=== PATIENT | female | born 1930 | race African-American/Black ===

== ENCOUNTER 2018-07-19 14:46 | Inpatient (IN) ==
--- NOTE | 2018-07-19 18:18 | Internal Med History&Physical ---
<Sanam Bauman N - Last Filed: 07/19/18 22:16> Date of Encounter: 07/19/18 Time of Encounter: 18:18 Internal Medicine - H&P: HPI Chief complaint: Left hip fracture Admitted From: Hospital to Hospital Transfer Plans for Post Hospital Care: Home History of present illness: Ms. Corrales is a 87 year old female with a history of CHF, CAD, HLD, HTN, PAD, [place], and CKD who arrived at [facility] as a transfer from [facility]. She presented to that facility after an unwitnessed fall that presumably occurred from standing height. Patient is extremely hard of hearing; however, she is able to respond appropriately to written questions and appears to be fairly reliable as a historian. She states that she was "going around and around" even though she was trying to walk straight and suddenly fell. She states that she did not trip, and denies any headaches, visual changes, chest pain, shortness of breath, dizziness, or lightheadedness immediately prior to the event. She states that she was unable to get up without assistance, and called to her son, who lives with her, for help. Her family reports no apparent loss of consciousness. Initial imaging performed at outside facility was signif icant for intertrochanteric fracture of the left hip, prompting orthopedic consultation and subsequent transfer. Much of patients recent history is provided by her daughter, who is her POA, as well as multiple other family members present at the bedside. They report no recent changes in her health, and state that she has had no recent illnesses. She has had several falls at home, and the patient states that she is unsteady at times, requiring assistance with ambulation. Patient has had no recent increase in confusion, altered mental status, or other neurologic changes. ROS negative for fevers, chills, chest pain, abdominal pain, changes in appetite or bowel habits, or nausea/vomiting. Past Med Surg Social Fam HX - Past Medical History Medical history: arthritis, CHF, coronary artery disease, hyperlipidemia, hypertension, myocardial infarction, peripheral artery disease, renal disease Psychiatric history: no psych history - Past Surgical History Surgical History: carotid endarterectomy, coronary bypass (CABG), hysterectomy, orthopedic, other, other Additional surgical history: Triple bypass, Rt knee surgery, Back surgery, Lt n ephrectomy, Bilateral carpal tunnel release, T&A - Social History Smoking Status: Never smoker Smokeless Tobacco Status: No Alcohol use: unknown Drug use: none - Family History Father Living Status: Hx Family Cardiac Disorders: Yes (CAD) Mother Hx Family Cardiac Disorders: Yes (hypertension) Sister Hx Family Cardiac Disorders: Yes (CAD) Hx Family Endocrine Disorder: Yes (diabetes) Brother Living Status: Hx Family Cardiac Disorders: Yes (CAD) Internal Medicine - H&P: Meds Aspirin 325 mg PO DAILY 09/02/15 [History] Atorvastatin Calcium [Lipitor] 20 mg PO DAILY 09/02/15 [History] Clopidogrel [Plavix] 75 mg PO DAILY 09/02/15 [History] Ergocalciferol (VITAMIN D2) [Vitamin D2 (50,000 UNIT)] 50,000 unit PO QWEEK 09/02/15 [History] Furosemide [Lasix] 40 mg PO DAILY 09/02/15 [History] Isosorbide MONOnitrate (24 HR) [Imdur] 120 mg PO DAILY 09/02/15 [History] Ranolazine [Ranexa] 1,000 mg PO BID 09/02/15 [History] Raloxifene [Evista] 50 mg PO DAILY 01/24/16 [History] Cyanocobalamin (Vitamin B-12) [Vitamin B-12] 2,000 mcg PO DAILY #30 tablet 11/17/16 [Rx] Citalopram Hydrobromide [Citalopram HBr] 10 mg PO DAILY 04/18/17 [History] Propranolol HCl 60 mg PO DAILY 04/18/17 [History] hydrALAZINE [HydrALAZINE] 10 mg PO Q6HR tablet 04/22/17 [Rx] Ferrous Sulfate [Iron] 325 mg PO DAILY 03/23/18 [History] Allergy/AdvReac Type Severity Reaction Status Date / Time No Known Allergies Allergy Verified 07/12/18 15:36 All Systems PM: A 10-system review of systems was performed and is negative for pertinent findings except as documented above in the HPI. - Constitutional Constitutional: falls, no chills, no fever(s), no weakness - EENT Eyes: change in vision, pain, no loss of vision, no seeing flashes, no spots in vision, no tunnel vision, no other visual disturbances - Cardiovascular Cardiovascular ROS IM: dyspnea on exertion, no chest pain, no lightheadedness, no palpitations, no syncope - Respiratory Respiratory: dyspnea on exertion, no cough, no dyspnea - Gastrointestinal Gastrointestinal: no abdominal pain, no diarrhea, no hematemesis, no hematochezia, no melena, no nausea, no vomiting - Musculoskeletal Musculoskeletal ROS IM: arthralgias, deformity, joint swelling, limited range of motion - Neurological Neurological ROS: abnormal hearing, no behavioral changes, no dizziness, no focal weakness, no headache(s) - Constitutional Vitals: Temp Pulse Resp BP Pulse Ox 97.9 F 64 20 115/50 94 07/19/18 17:01 07/19/18 17:01 07/19/18 17:01 07/19/18 17:07/19/18 17:01 Exam: GENERAL: Elderly female in no acute distress. She is extremely hard of hearing; however, she is able to read written questions and respond appropriately. HEENT: Normocephalic. Frontal contusion present with ecchymosis. CARDIOVASCULAR: Regular rate and rhythm. S1 and S2 present. RESPIRATORY: Clear bilaterally. Chest rises and falls symmetrically with respiration. No accessory muscle use noted. GASTROINTESTINAL: Abdomen is soft, nontender, nondistended. EXTREMITIES: No clubbing or cyanosis. Minimal LE edema present. Left lower extremity is externally rotated. SKIN: Warm, dry, and intact. NEUROLOGIC: Patient is cooperative with exam and answers questions appropriately when asked in writing. CN II-XII grossly intact. No pronator drift present. No apparent focal deficits. PSYCHIATRIC: Speech is intermittently disoriented and patient demonstrates difficulty staying on topic. Affect appears appropriate. - Assessment and plan (1) Intertrochanteric fracture of left hip Current Visit: No Status: Acute Assessment and plan: Imaging performed at [facility] demonstrated left intertrochanteric hip fracture. Per ED documentation, her case was discussed with Dr. Pantoja in orthopedic surgery, who agreed to assess her tomorrow morning for definitive management. - Inpatient consult placed to orthopedic surgery - Pain control PRN - NPO diet after midnight in anticipation of possible surgical intervention Qualifiers: Encounter type: initial encounter Fracture type: closed Fracture alignmen t: displaced Qualified Code(s): S72.142A - Displaced intertrochanteric fracture of left femur, initial encounter for closed fracture (2) Head contusion Current Visit: Yes Status: Acute Assessment and plan: Patient reports having hit her head on an end table when she fell. She denies any visual changes, headache, or loss of consciousness. She is currently on asp irin and plavix. - Head CT pending to rule out traumatic injury - Continue to monitor for neurologic and/or functional changes Qualifiers: Encounter type: initial encounter Contusion of head detail: unspecified part of head Qualified Code(s): S00.93XA - Contusion of unspecified part of head, initial encounter (3) Fall Current Visit: Yes Status: Acute Assessment and plan: Patient reports having fallen multiple times, and states that she does require assistance with ambulation at times, though she can get around her home. - Consider physical and occupational therapy consults after definitive management of hip fracture Qualifiers: Encounter type: initial encounter Qualified Code(s): W19.XXXA - Unspecified fall, initial encounter (4) CAD (coronary artery disease) Current Visit: No Status: Chronic Assessment and plan: Patient as a known history of coronary artery disease, and has a personal history of prior [place]. She denies chest pain; however, she does report dyspnea with minimal exertion. Echocardiogram performed on 11/23/2016 demonstrated LVEF of 60%. - Consult to cardiology for preoperative assessment Qualifiers: Coronary Disease-Associated Artery/Lesion type: bypass graft, autologous vein Associated angina: without angina Qualified Code(s): I25.810 - Atherosc lerosis of coronary artery bypass graft(s) without angina pectoris (5) Atrial fibrillation with controlled ventricular rate Current Visit: No Status: Chronic Assessment and plan: - Medication reconciliation pending. Anticipate continuation of home medications. (6) Hypertension Current Visit: No Status: Chronic Assessment and plan: - Continue hydralazine 10mg Q6H. Further medication reconciliation pending. Qualifiers: Hypertension type: essential hypertension Qualified Code(s): I10 - Essential (primary) hypertension (7) CKD (chronic kidney disease) stage 3, GFR 30-59 ml/min Current Visit: No Status: Acute Assessment and plan: Creatinine appears to be at baseline. - Avoid nephrotoxins and renally dose medications (8) HLD (hyperlipidemia) Current Visit: No Status: Acute Assessment and plan: - Medication reconciliation pending. Anticipate continuation of home medications. Qualifiers: Hyperlipidemia type: mixed hyperlipidemia Qualified Code(s): E78.2 - Mixed hyperlipidemia (9) DVT prophylaxis Current Visit: Yes Status: Acute Assessment and plan: - Heparin 5000units SQ Q12H (10) Anemia Current Visit: Yes Status: Acute Assessment and plan: Unclear etiology. Patient does have chronic anemia; however, her baseline hemoglobin appears to be around 10.5-11. Laboratory studies performed at [facility] prior to transfer revealed hemoglobin of 9.0. - Monitor for signs of acute bleeding - Repeat CBC with AM labs Qualifiers: Anemia type: unspecified type Qualified Code(s): D64.9 - Anemia, unspecified - Time Spent With Patient Total time spent is greater than 50% in coordination of care (as documented) at patient's floor/unit and/or counseling patient: <WaleskaSamychristina Diaz - Last Filed: 07/20/18 08:13> Date of Encounter: 07/20/18 Internal Medicine - H&P: HPI History of present illness: Ms. Corrales is a 87 year old female All Systems PM: A 10-system review of systems was performed and is negative for pertinent findings except as documented above in the HPI. - Constitutional Vitals: Temp Pulse Resp BP Pulse Ox 97.8 F 63 16 177/70 94 07/20/18 06:45 07/20/18 06:45 07/20/18 06:45 07/20/18 06:45 07/20/18 06:45 Internal Med - H&P Results - Labs CBC & Chem 7: 07/20/18 04:25 Labs: Short CBC 07/20/18 Range/Units 04:25 WBC 5.6 (4.3-11.1) K/mcL Hgb 8.2 L (11.5-15.4) g/dL Hct 25.4 L (35.3-44.9) % Plt Count 113 L (140-400) K/mcL Neutrophils # 3.8 (1.6-8.9) K/mcL - Impressions ITS Impressions Head CT 07/19/18 20:00 IMPRESSION: Question very mild soft tissue swelling along the left frontal and/or parietal scalp. No underlying displaced calvarial fracture or acute intracranial abnormality. D/ / Joselo Lee / Christopher Sigakis Interpreting Provider: Joselo Lee - Assessment and plan (1) Atrial fibrillation with controlled ventricular rate Current Visit: No Status: Chronic (2) Hypertension Current Visit: No Status: Chronic Qualifiers: Hypertension type: essential hypertension Qualified Code(s): I10 - Essential (primary) hypertension (3) CKD (chronic kidney disease) stage 3, GFR 30-59 ml/min Current Visit: No Status: Acute (4) CAD (coronary artery disease) Current Visit: No Status: Chronic Qualifiers: Coronary Disease-Associated Artery/Lesion type: bypass graft, autologous vein Associated angina: without angina Qualified Code(s): I25.810 - Atherosclerosis of coronary artery bypass graft(s) without angina pectoris (5) HLD (hyperlipidemia) Current Visit: No Status: Acute Qualifiers: Hyperlipidemia type: mixed hyperlipidemia Qualified Code(s): E78.2 - Mixed hyperlipidemia (6) Intertrochanteric fracture of left hip Current Visit: No Status: Acute Qualifiers: Encounter type: initial encounter Fracture type: closed Fracture alignment: displaced Qualified Code(s): S72.142A - Displaced intertrochanteric fracture of left femur, initial encounter for closed fracture (7) Head contusion Current Visit: Yes Status: Acute Qualifiers: Encounter type: initial encounter Contusion of head detail: unspecified part of head Qualified Code(s): S00.93XA - Contusion of unspecified part of head, initial encounter (8) Fall Current Visit: Yes Status: Acute Qualifiers: Encounter type: initial encounter Qualified Code(s): W19.XXXA - Unspecified fall, initial encounter (9) DVT prophylaxis Current Visit: Yes Status: Acute (10) Anemia Current Visit: Yes Status: Acute Qualifiers: Anemia type: unspecified type Qualified Code(s): D64.9 - Anemia, unspecified - Time Spent With Patient Total time spent is greater than 50% in coordination of care (as documented) at patient's floor/unit and/or counseling patient: - Attending Attestation I examined this patient and my medical decision-making was reviewed with the Resident Physician. I agree with the documented findings, disposition and treatment plan as described except to the extent set forth below.
--- NOTE | 2018-07-19 18:24 | Anesthesia Evaluation PreOp ---
Addendum entered and electronically signed by Meño Grover DO 07/20/18 12:08: Patient seen in OR Holding room at 1210. She is accompanied by her daughter. Patient is screaming "help me, your going to kill me". Won't answer my questions. At one point she closes her eyes and closes her moutha nd refuses to speak to anyone including her daughter. She is not oriented or cooperative at this point. Her daughter reports that the patient lives at home independently and cares for herself and gets around well without any history of dementia or confusion. This presentation today may be a result of medications, daughter aware this could worsen with anesthesia. 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: Denies Any Significant HX Other Medical History: Denies Any Significant HX Anesthesia History: No Prior Anesthetic Complications, Past Anesthesia (carotid endarterectomy, coronary bypass (CABG x 4), hysterectomy, orthopedic, Rt knee surgery, Back surgery, Lt nephrectomy, Bilateral carpal tunnel release, T&A, aorta befemoral bypass) : No Alcohol Use: unknown Drug use: none Medications and Allergies Aspirin 325 mg PO DAILY 09/02/15 [History] Atorvastatin Calcium [Lipitor] 20 mg PO DAILY 09/02/15 [History] Clopidogrel [Plavix] 75 mg PO DAILY 09/02/15 [History] Ergocalciferol (VITAMIN D2) [Vitamin D2 (50,000 UNIT)] 50,000 unit PO QWEEK 09/02/15 [History] Furosemide [Lasix] 40 mg PO DAILY 09/02/15 [History] Isosorbide MONOnitrate (24 HR) [Imdur] 120 mg PO DAILY 09/02/15 [History] Ranolazine [Ranexa] 1,000 mg PO BID 09/02/15 [History] Raloxifene [Evista] 50 mg PO DAILY 01/24/16 [History] Cyanocobalamin (Vitamin B-12) [Vitamin B-12] 2,000 mcg PO DAILY #30 tablet 11/17/16 [Rx] Citalopram Hydrobromide [Citalopram HBr] 10 mg PO DAILY 04/18/17 [History] Propranolol HCl 60 mg PO DAILY 04/18/17 [History] hydrALAZINE [HydrALAZINE] 10 mg PO Q6HR tablet 04/22/17 [Rx] Ferrous Sulfate [Iron] 325 mg PO DAILY 03/23/18 [History] Allergy/AdvReac Type Severity Reaction Status Date / Time No Known Allergies Allergy Verified 07/12/18 15:36 - Meds/Allergy Pre-op Review Medications Reviewed: Yes Allergies Reviewed: Yes Beta Blockers on Current Med List: No If Beta Blockers taken, Date/Time (Last Dose taken): PRN basis Anesthesia Results - Labs Laboratory Tests 09/20/16 07/19/18 07/19/18 18:15 13:15 13:15 WBC 4.2 L Hgb 9.0 L Hct 27.8 L Plt Count 113 L INR 1.1 Sodium 138 Potassium 4.7 Chloride 107 Carbon Dioxide 26 BUN 53 H Creatinine 1.80 H - Imaging EKG: report reviewed (SINUS RHYTHM WITH FIRST DEGREE AV BLOCK MINIMAL VOLTAGE CRITERIA FOR LVH, CONSIDER NORMAL VARIANT Poor R wave progression) Additional studies: Echocardiogram Name: Brigida Corrales Date of Study: 11/23/2016 Impressions: LVEF 60%. Normal left ventricular size and systolic function. Indeterminate left ventricular diastolic function. RV is mildly dilated with normal function. Aortic valve leaflet morphology is not well visualized. However there is moderate calcification and decreased leaflet motion. By Doppler, there is moderate aortic stenosis (DI 0.35, EULALIO 1.13cm2). Mild aortic regurgitation. Mild mitral regurgitation. Mild tricuspid regurgitation. No pulmonary hypertension. 12/09/16 Stress EF-70% No Ischemia Anesthesia Exam Vital Signs/O2 Sat, Most Current Temp Pulse Resp BP Pulse Ox 97.9 F 64 20 115/50 94 07/19/18 17:01 07/19/18 17:01 07/19/18 17:01 07/19/18 17:01 07/19/18 17:01 - HEENT Pupil (Motor): Pupils equal, EOMI Mallampati: II Teeth: Edentulous Oral Opening: Greater than 3 - BI[employer] B[employer]ING C[employer] LOC: Oriented BI[employer]ING C[employer] Motor: Normal RUE, Normal LUE, Normal RLE, Normal LLE, Normal Face [employer] Sensory: Normal: RUE, LUE, RLE, LLE, Face - Cardiac Rhythm: Regular Murmur: None JVD: No Carotid Bruit: No - Pulmonary Breath Sounds: bilateral Clear Respiratory Effort: Symmetrical Anesthesia Assess/Plan ASA Score: 3 Level of consciousness: Cooperative Anesthetic Plan: General Autologous Blood: Yes Monitoring Plan: Standard Monitors Recovery Plan: PACU
[2018-07-19] MEDS ORDERED: *HR* Metoprolol 5 MG/5 ML VIAL IVP PRN (18:59)
[2018-07-19] MEDS ORDERED: Acetaminophen 325 MG TABLET PO PRN (19:58)
[2018-07-19] MEDS ORDERED: Naloxone 0.4 MG/ML INJ IVP PRN (19:58)
[2018-07-19] MEDS ORDERED: *HR* OxyCODONE Immed Rel 5 MG TABLET PO PRN (19:58)
[2018-07-20] MEDS: hydrALAZINE 10 MG TABLET PO SCH ×3 (00:05→17:29)
[2018-07-20] MEDS ORDERED: OXYCODONE Oral CONC 10 MG/0.5 ML ORAL.SYG SL PRN ×2 (00:49→06:56)
[2018-07-20] MEDS ORDERED: Acetaminophen IV 1,000 MG/100 ML INFUS..BTL IVPB ONE ×3 (00:49→15:31)
[2018-07-20] MEDS ORDERED: OXYCODONE Oral CONC 10 MG/0.5 ML ORAL.SYG SL ONE (00:52)
[2018-07-20 04:51] LABS: Basophils % 0.4 %; Eosinophils # 0.1 K/mcL (0.0-0.6); Eosinophils % 1.1 %; Hematocrit 25.4 % (35.3-44.9); Hemoglobin 8.2 g/dL (11.5-15.4); Immature Granulocytes % 0.5 % (0-4); Lymphocytes % 17.1 %; Mean Corpuscular HGB Conc 32.3 g/dL (31.6-35.5); Mean Corpuscular Hemoglobin 32.4 pg (28.0-33.3); Mean Corpuscular Volume 100.4 fL (83.0-100.0); Mean Platelet Volume 9.7 fL (9.4-12.4); Monocytes # 0.7 K/mcL (0.0-1.3); Monocytes % 13.1 %; Neutrophils # 3.8 K/mcL (1.6-8.9); Platelet Count 113 K/mcL (140-400); Red Blood Count 2.53 M/mcL (3.82-4.97); Red Cell Distribution Width 12.5 % (11.5-14.5); Segmented Neutrophils % 67.8 %
[2018-07-20 04:57] LABS: INR 1.1; Prothrombin Time 12.7 Seconds (9.4-12.1)
[2018-07-20] MEDS ORDERED: *HR* Heparin 5,000 UNIT/ML VIAL SQ SCH (06:00)
--- NOTE | 2018-07-20 07:30 | Orthopedic Consult Note ---
Date of Encounter: 07/20/18 Time of Encounter: 07:27 Assessment and Plan (1) Intertrochanteric fracture of left hip Current Visit: No Status: Acute I did discuss the diagnosis in detail with the power of estate attorney who is the patient's daughter. My recommendation was to proceed with left hip nailing in order to reduce and stabilize left hip to provide pain control, help facilitate nursing care, and allow for early mobilization. The risks discussed included but were not limited to stiffness, bleeding, infection, blood clots, damage to neurovascular structures, tendons, ligaments, and bone. Also discussed was the risk of continued symptoms and possible need for further procedures. I did discuss the anesthesia risks including stroke, heart attack, and . I did discuss the reasonable, foreseeable postoperative course with the patient. The patient did wish to proceed and consent was obtained. I have reviewed each of the pertinent components of this chart and any other pertinent medical component(s) including but not limited to pertinent application of the chief complaint, history of present illness, current medication, medical history, allergies, family history, medical history, surgical history, social history, review of systems, vital signs, and any other portion of the pertinent patient medical record directly or indirectly involved with this patient care that is pertinent based on my medical decision process. AMANDA Thomas Qualifiers: Encounter type: initial encounter Fracture type: closed Fracture alignment: displaced Qualified Code(s): S72.142A - Displaced intertrochanteric fracture of left femur, initial encounter for closed fracture History of Present Illness HPI: Ms. Corrales is a 87 year old female with multiple cardiac comorbidities. She was admitted last night after a fall that resulted in a left displaced intertrochanteric hip fracture. She was admitted to the hospitalist after being transferred. I did speak with the patient's daughter who is power of estate attorney who indicates the patient is a baseline ambulator who uses a walker and a cane. She has been dragging her right lower extremity recently. The patient does have confusion this morning and does not verbalize or complaints very well. She is also significantly hard of hearing. She denies any other injuries and denies numbness, tingling, or any other associated signs or symptoms. Pain is worse with any movement of the left lower extremity. No other modifying factors. Past Med Surg Social Fam HX - Past Medical History Medical history: arthritis, CHF, coronary artery disease, hyperlipidemia, hypertension, myocardial infarction, peripheral artery disease, renal disease Psychiatric history: no psych history - Past Surgical History Surgical History: carotid endarterectomy, coronary bypass (CABG), hysterectomy, orthopedic, other, other Additional surgical history: Triple bypass, Rt knee surgery, Back surgery, Lt nephrectomy, Bilateral carpal tunnel release, T&A - Social History Smoking Status: Never smoker Smokeless Tobacco Status: No Alcohol use: unknown Drug use: none - Family History Father Living Status: Hx Family Cardiac Disorders: Yes (CAD) Mother Hx Family Cardiac Disorders: Yes (hypertension) Sister Hx Family Cardiac Disorders: Yes (CAD) Hx Family Endocrine Disorder: Yes (diabetes) Brother Living Status: Hx Family Cardiac Disorders: Yes (CAD) Medications and Allergies Aspirin 325 mg PO DAILY 09/02/15 [History] Atorvastatin Calcium [Lipitor] 20 mg PO DAILY 09/02/15 [History] Clopidogrel [Plavix] 75 mg PO DAILY 09/02/15 [History] Ergocalciferol (VITAMIN D2) [Vitamin D2 (50,000 UNIT)] 50,000 unit PO QWEEK [History] Furosemide [Lasix] 40 mg PO DAILY 09/02/15 [History] Isosorbide MONOnitrate (24 HR) [Imdur] 120 mg PO DAILY 09/02/15 [History] Ranolazine [Ranexa] 1,000 mg PO BID 09/02/15 [History] Raloxifene [Evista] 50 mg PO DAILY 01/24/16 [History] Cyanocobalamin (Vitamin B-12) [Vitamin B-12] 2,000 mcg PO DAILY #30 tablet 11/17/16 [Rx] Citalopram Hydrobromide [Citalopram HBr] 10 mg PO DAILY 04/18/17 [History] Propranolol HCl 60 mg PO DAILY 04/18/17 [History] hydrALAZINE [HydrALAZINE] 10 mg PO Q6HR tablet 04/22/17 [Rx] Ferrous Sulfate [Iron] 325 mg PO DAILY 03/23/18 [History] Allergy/AdvReac Type Severity Reaction Status Date / Time No Known Allergies Allergy Verified 07/12/18 15:36 All Systems Reviewed: Constitutional -The patient denies any fevers, chills, or feelings of illness Neurologic -The patient denies any numbness, tingling, or burning pains Physical Exam - Constitutional Vitals: Temp Pulse Resp BP Pulse Ox 97.8 F 63 16 177/70 94 07/20/18 06:45 07/20/18 06:45 07/20/18 06:45 07/20/18 06:45 07/20/18 06:45 Constitutional -Vitals reviewed -The patient is well developed and well nourished. -Mood is pleasant. -The patient is well groomed. -Significant hard of hearing however I am able to communicate with writing. Psychiatric -Moderate confusion -Not oriented to place or time -Able to follow commands. Respiratory: -Respiratory effort normal Abdomen: -Soft abdomen -Non tender -Non distended: Left upper extremity: -No deformities. The overlying skin is intact. No obvious signs of acute trauma. -No tenderness to palpation throughout. -No significant pain with passive motion of the shoulder, elbow, wrist, and fingers within the limits of the bed. -Able to make an "OK" sign, cross the index and long fingers, and extend the thumb. -Sensation grossly intact to light touch throughout the median, radial, and ulnar distributions. -Radial pulse is present; Fingers have good capillary refill. Right upper extremity: -No deformities. The overlying skin is intact. No obvious signs of acute trauma. -No tenderness to palpation throughout. -No significant pain with passive motion of the shoulder, elbow, wrist, and fingers within the limits of the bed. -Able to make an "OK" sign, cross the index and long fingers, and extend the thumb. -Sensation grossly intact to light touch throughout the median, radial, and ulnar distributions. -Radial pulse is present; Fingers have good capillary refill. Left lower extremity: -The extremity is shortened and externally rotated. The overlying skin is intact. -There is tenderness in the groin region as well as the proximal lateral thigh. -I did not range the hip due to the known fracture. -No tenderness along the distal thigh, leg, ankle, foot, or toes. -Able to dorsiflex and plantarflex the ankle and toes. -Sensation is grossly intact to light touch throughout the sural, saphenous, superficial peroneal, and deep peroneal distributions. -Toes have good capillary refill. Right lower extremity: -No deformities. The overlying skin is intact. No obvious signs of acute trauma. -No tenderness to palpation throughout. -No pain with passive motion of the hip, knee, ankle, and toes within the limits of the bed. -No pain with axial loading of the thigh. -Able to dorsiflex and plantarflex the ankle and toes. -Sensation is grossly intact to light touch throughout the sural, saphenous, superficial peroneal, and deep peroneal distributions. -Toes have good capillary refill. Results - Labs Result Diagrams: 07/20/18 04:25 Labs: Abnormal lab results RBC 2.53 M/mcL (3.82-4.97) L 07/20/18 04:25 Hgb 8.2 g/dL (11.5-15.4) L 07/20/18 04:25 Hct 25.4 % (35.3-44.9) L 07/20/18 04:25 MCV 100.4 fL (83.0-100.0) H 07/20/18 04:25 Plt Count 113 K/mcL (140-400) L 07/20/18 04:25 PT 12.7 Seconds (9.4-12.1) H 07/20/18 04:25 H & H 07/20/18 Range/Units 04:25 Hgb 8.2 L (11.5-15.4) g/dL Hct 25.4 L (35.3-44.9) % All other labs normal. Consult Discharge Plan - Plan Referrals: NONE,PCP [Primary Care Provider] -
--- NOTE | 2018-07-20 09:05 | Internal Med Progress Note ---
Hospitalist Progress Note - Encounter Date of Encounter: 07/20/18 Time of Encounter: 09:04 - Subjective Interval History: Patient seen and examined at the bedside while undergoing pre-operative echocardiogram. She appears agitated and refuses to be examined. Nursing staff reports that she has been intermittently shouting all morning, and was observed yelling at several family members to "get out" immediately after arrival. Family confirms mild baseline dementia, and states that "she does this sometimes". Nursing staff reports no other acute events at this time. - Exam Vitals: Temp Pulse Resp BP Pulse Ox 97.8 F 63 16 177/70 94 07/20/18 06:45 07/20/18 06:45 07/20/18 06:45 07/20/18 06:45 07/20/18 06:45 Exam: GENERAL: Agitated elderly female in no acute distress. HEENT: Normocephalic. Frontal contusion present with ecchymosis. CARDIOVASCULAR: Regular rate and rhythm. RESPIRATORY: Chest rises and falls symmetrically with respiration. No accessory muscle use noted. GASTROINTESTINAL: Abdomen is soft, nontender, nondistended. EXTREMITIES: No clubbing or cyanosis. Left lower extremity is externally rotated. NEUROLOGIC: Patient appears agitated and is refusing exam. She appears to be confused about the identities of some of her family members. - Assessment and Plan (1) Intertrochanteric fracture of left hip Current Visit: No Status: Acute Assessment and Plan: Imaging performed at [facility] demonstrated left intertrochanteric hip fracture. Patient underwent surgical intervention this afternoon with Dr. Galdamez. - Continue pain control PRN - Appreciate orthopedics recommendations (2) Acute delirium Current Visit: Yes Status: Acute Assessment and Plan: Likely secondary to hospitalization, pain, and baseline dementia. - Continue to monitor and try to reorient patient - Consider haldol PRN severe agitation - Obtain urinalysis to rule out UTI (3) Head contusion Current Visit: Yes Status: Acute Assessment and Plan: Patient reports having hit her head on an end table when she fell. She denies any visual changes, headache, or loss of consciousness. She is currently on aspirin and plavix. - Head CT demonstrated no acute intracranial findings - Continue to monitor for neurologic and/or functional changes (4) Fall Current Visit: Yes Status: Acute Assessment and Plan: Patient reports having fallen multiple times, and states that she does require assistance with ambulation at times, though she can get around her home. - Consider physical and occupational therapy consults after definitive management of hip fracture (5) Anemia Current Visit: Yes Status: Acute Assessment and Plan: Unclear etiology. Patient does have chronic anemia; however, her baseline hemoglobin appears to be around 10.5-11. Laboratory studies performed at [facility] prior to transfer revealed hemoglobin of 9.0. Hemoglobin found to be 8.2 on repeat CBC this morning. - Monitor for signs of acute bleeding - Repeat and trend CBC with AM labs (6) CAD (coronary artery disease) Current Visit: No Status: Chronic Assessment and Plan: Patient as a known history of coronary artery disease, and has a personal history of prior ME. She denies chest pain; however, she does report dyspnea with minimal exertion. Echocardiogram performed on 11/23/2016 demonstrated LVEF of 60%. Cardiology conducted preoperative assessment prior to surgery this afternoon. Repeat echocardiogram demonstrated maintained LVEF of 60%. - Continue home medications of aspirin, statin, imdur, and ranexa (7) Hypertension Current Visit: No Status: Chronic Assessment and Plan: - Resume home medications of hydralazine and metoprolol (8) CKD (chronic kidney disease) stage 3, GFR 30-59 ml/min Current Visit: No Status: Acute Assessment and Plan: Creatinine appears to be at baseline. - Avoid nephrotoxins and renally dose medications (9) HLD (hyperlipidemia) Current Visit: No Status: Acute Assessment and Plan: - Continue home dose of atorvastatin 20mg daily (10) DVT prophylaxis Current Visit: Yes Status: Acute Assessment and Plan: - Heparin 5000units SQ Q12H - Time Spent with Patient Total time spent is greater than 50% in coordination of care (as documented) at patient's floor/unit and/or counseling patient: Internal Medicine: Result - Labs CBC & Chem 7: 07/20/18 04:25 Labs: Short CBC 07/20/18 Range/Units 04:25 WBC 5.6 (4.3-11.1) K/mcL Hgb 8.2 L (11.5-15.4) g/dL Hct 25.4 L (35.3-44.9) % Plt Count 113 L (140-400) K/mcL Neutrophils # 3.8 (1.6-8.9) K/mcL - ABG Interpretation ABG results: PT/INR, D-dimer PT 12.7 Seconds (9.4-12.1) H 07/20/18 04:25 - Impressions Impressions Head CT 07/19/18 20:00 IMPRESSION: Question very mild soft tissue swelling along the left frontal and/or parietal scalp. No underlying displaced calvarial fracture or acute intracranial abnormality. D/ / Joselo Lee / Joselo Lee Interpreting Provider: Joselo Lee Consult Discharge Plan - Plan Referrals: NONE,PCP [Primary Care Provider] - (1) Intertrochanteric fracture of left hip Qualifiers: Encounter type: initial encounter Fracture type: closed Fracture alignment: displaced Qualified Code(s): S72.142A - Displaced intertrochanteric fracture of left femur, initial encounter for closed fracture (3) Head contusion Qualifiers: Encounter type: initial encounter Contusion of head detail: unspecified part of head Qualified Code(s): S00.93XA - Contusion of unspecified part of head, initial encounter (4) Fall Qualifiers: Encounter type: initial encounter Qualified Code(s): W19.XXXA - Unspecified fall, initial encounter (5) Anemia Qualifiers: Anemia type: unspecified type Qualified Code(s): D64.9 - Anemia, unspecified (6) CAD (coronary artery disease) Qualifiers: Coronary Disease-Associated Artery/Lesion type: bypass graft, autologous vein Associated angina: without angina Qualified Code(s): I25.810 - Atherosclerosis of coronary artery bypass graft(s) without angina pectoris (7) Hypertension Qualifiers: Hypertension type: essential hypertension Qualified Code(s): I10 - Essential (primary) hypertension (9) HLD (hyperlipidemia) Qualifiers: Hyperlipidemia type: mixed hyperlipidemia Qualified Code(s): E78.2 - Mixed hyperlipidemia
--- NOTE | 2018-07-20 09:48 | Cardiology Consult Note ---
<Angeles Dos Santos - Last Filed: 07/20/18 11:23> Date of Encounter: 07/20/18 Time of Encounter: 09:00 Assessment and Plan (1) Encounter for pre-operative cardiovascular clearance Current Visit: Yes Status: Acute Ms. Corrales was presented to the hospital after a recent mechanical left intertrochanteric fracture. She had a echo in 2017 shich showed preserved EF of 60% with moderate aortic stenosis. She has history of coronary artery disease and also has history of CKD stage 3 with baseline creatinine of 1.7. She also has chronic anemia but this morning is 8.2, lower than baseline of 10. Given her age and comorbidities she would be high cardiac risk for surgical intervention. Awaiting echo at this time. (2) CAD (coronary artery disease) Current Visit: No Status: Chronic History of coronary artery bypass graft about 15 years ago at [facility] in [place] and had a right carotid endartectormy. Noted to be on ASA, Statin and plavix outpatient but unknown if she is complaint with her medications as she is a poor historian. Qualifiers: Coronary Disease-Associated Artery/Lesion type: bypass graft, autologous vein Associated angina: without angina Qualified Code(s): I25.810 - Atherosclerosis of coronary artery bypass graft(s) without angina pectoris (3) CKD (chronic kidney disease), stage III Current Visit: Yes Status: Chronic History of CKD stage III, GFR at presentation 32 at baseline. Her creatinine is 1.8 which is mildly elevated. Further recommendations by primary team. Discussion w patient/family: The assessment and plan as outlined above was discussed with the patient and/or family members who expressed understanding and agreement. All questions were answered. Thank you for involving us in the care of your patient. Please call with any questions. History of Present Illness Consult date: 07/19/18 Requesting physician: Alverto Galeano Consult reason: surgery clearance Chief complaint: recent fall History of present illness: Ms. Corrales is a 87 year old female with history of CHF, CAD, HLD, HTN, PVD, AL and CKD was presented to the ED from [facility] after an unwitnessed mechanical fall. History was obtained from chart review as this morning she appeared to be a poor historian. Yesterday she was walking and suddenly fell. She had called her son to come help her and family noted she had not lost consciousness. CT of the head showed mild soft tissue swelling in frontal and parietal lobe. Images were performed at the outside facility and showed intertrochanteric left hip fracture. At presentation she was noted not to have altered mental status and family denied recent confusion. This morning she was unable to provide most of the history and was not oriented to person, place or time. Past Med Surg Social Fam HX - Past Medical History Medical history: arthritis, CHF, coronary artery disease, hyperlipidemia, hypertension, myocardial infarction, peripheral artery disease, renal disease Psychiatric history: no psych history - Past Surgical History Surgical History: carotid endarterectomy, coronary bypass (CABG), hysterectomy, orthopedic, other, other Additional surgical history: Triple bypass, Rt knee surgery, Back surgery, Lt nephrectomy, Bilateral carpal tunnel release, T&A - Social History Smoking Status: Never smoker Smokeless Tobacco Status: No Alcohol use: unknown Drug use: none - Family History Father Living Status: Hx Family Cardiac Disorders: Yes (CAD) Mother Hx Family Cardiac Disorders: Yes (hypertension) Sister Hx Family Cardiac Disorders: Yes (CAD) Hx Family Endocrine Disorder: Yes (diabetes) Brother Living Status: Hx Family Cardiac Disorders: Yes (CAD) Medications and Allergies Aspirin 325 mg PO DAILY 09/02/15 [History] Atorvastatin Calcium [Lipitor] 20 mg PO DAILY 09/02/15 [History] Clopidogrel [Plavix] 75 mg PO DAILY 09/02/15 [History] Ergocalciferol (VITAMIN D2) [Vitamin D2 (50,000 UNIT)] 50,000 unit PO QWEEK 09/02/15 [History] Furosemide [Lasix] 40 mg PO DAILY 09/02/15 [History] Isosorbide MONOnitrate (24 HR) [Imdur] 120 mg PO DAILY 09/02/15 [History] Ranolazine [Ranexa] 1,000 mg PO BID 09/02/15 [History] Raloxifene [Evista] 50 mg PO DAILY 01/24/16 [History] Cyanocobalamin (Vitamin B-12) [Vitamin B-12] 2,000 mcg PO DAILY #30 tablet 11/17/16 [Rx] Citalopram Hydrobromide [Citalopram HBr] 10 mg PO DAILY 04/18/17 [History] Propranolol HCl 60 mg PO DAILY 04/18/17 [History] hydrALAZINE [HydrALAZINE] 10 mg PO Q6HR tablet 04/22/17 [Rx] Ferrous Sulfate [Iron] 325 mg PO DAILY 03/23/18 [History] Allergy/AdvReac Type Severity Reaction Status Date / Time No Known Allergies Allergy Verified 07/12/18 15:36 ROS unobtainable: due to mental status All Systems Review: The remainder of the systems were reviewed and are negative Physical Examination Vital Signs, Last 4 Hours Temp Pulse Resp BP Pulse Ox 07/20/18 06:45 97.8 F 63 16 177/70 94 General: No Apparent Distress HEENT: Atraumatic, Normocephaly, Mucus Membranes Moist Neck: No JVD Cardiac: Reg Rate and Rhythm, Normal S1 and S2, Other (4/6 systolic ejection murmur audible at all cardiac borders ) Lungs: Normal Breath Sounds, No Wheeze, Rales, Rhonchi Skin: No rashes noted on visualized skin Musculoskeletal: No Chest Wall Tenderness Extremities: No Cyanosis, No Edema Results 07/20/18 04:25 Lab Results 07/20/18 07/20/18 04:25 04:25 WBC 5.6 Hgb 8.2 L Hct 25.4 L Plt Count 113 L INR 1.1 Consult Discharge Plan - Plan Referrals: NONE,PCP [Primary Care Provider] - <Ricarda Burgess - Last Filed: 07/20/18 12:25> Date of Encounter: 07/20/18 - Attending Attestation I examined this patient and my medical decision-making was reviewed with the Resident Physician. I agree with the documented findings, disposition and treatment plan. Ms. Corrales presents with a left hip fracture after sustaining a fall, presumed mechanical. Medical history significant for remote CABG, right CEA and aortic stenosis. She also has CKD and chronic anemia. At the bedside the patient is somnolent but arousable, alert but confused. Unable to provide history or symptoms. Vital signs reviewed - hemodynamically stable. Systolic murmur noted on exam. Labs reviewed - Hgb lower than usual Impression/Plan: 1. Pre operative CV risk assessment: Unable to obtain symptoms from patient due to confusion. Has mutliple comorbidities that would increase her CV risk for surgery including known CAD, remote bypass, CKD and a decrease in her baseline anemia. Also with moderate aortic stenosis by Echo in September 2017. The patient appears frail and debilitated and given her overall comorbidities her risk for perioperative CV event would be elevated. Awaiting Echo done today for final recommendations. However, further cardiac testing would only delay necessary surgery that if not done would contribute to further debilitation, and increase her morbidity and mortality. Assessment and Plan Discussion w patient/family: The assessment and plan as outlined above was discussed with the patient and/or family members who expressed understanding and agreement. All questions were answered. Thank you for involving us in the care of your patient. Please call with any questions. History of Present Illness History of present illness: Ms. Corrales is a 87 year old female All Systems Review: The remainder of the systems were reviewed and are negative Physical Examination Vital Signs, Last 4 Hours Temp Pulse Resp Pulse Ox 07/20/18 11:59 98.7 F 80 17 93 Results 07/20/18 04:25 Lab Results 07/20/18 07/20/18 04:25 04:25 WBC 5.6 Hgb 8.2 L Hct 25.4 L Plt Count 113 L INR 1.1
[2018-07-20] MEDS ORDERED: Haloperidol Lactate 5 MG/ML VIAL IVP ONE (10:05)
--- NOTE | 2018-07-20 10:42 | Event Note ---
Date of Encounter: 07/20/18 Time of Encounter: 10:38 Patient was seen and examined. I agree with the progress note as written by the resident physician. Patient is here with a left intertrochanteric hip fracture and is awaiting cardiology operative clearance. She is pending an echocardiogram. CT head was done which showed question of very mild soft tissue swelling along the left frontal and/or parietal scalp. The patient came in to us with a history of CHF, coronary disease, hyperlipidemia, hypertension, PAD, as a transfer from [place] to her fall. This sounds mechanical in nature. Was found to have a left intertrochanteric hip fracture. The patient is consulted. Pain is controlled this morning. GEN: NAD CVS: RRR. S1, S2, No m/r/g RESP: CTAB ABD: Soft, NT, ND, +BS EXT: No edema. 2+ DP. No rashes. Left lower extremity is externally rotated NEURO: Nonfocal Continue pain control. Awaiting cardiology clearance. Echocardiogram pending Extensive history that were given her high risk for surgery NPO Continue home medication Heparin subcutaneous for DVT prophylaxis
[2018-07-20] MEDS ORDERED: *HR* FentaNYL (PF) 100 MCG/2 ML VIAL IVP PRN (12:20)
[2018-07-20] MEDS ORDERED: *HR* OxyCODONE Immed Rel 5 MG TABLET PO PRN ×2 (12:22→15:31)
[2018-07-20] MEDS ORDERED: *HR* Midazolam HCl 2 MG/2 ML VIAL IVP PRN (12:22)
[2018-07-20] MEDS ORDERED: Ondansetron 4 MG/2 ML VIAL IVP ONE (12:22)
[2018-07-20] MEDS ORDERED: CeFAZolin Syr 2,000MG/20 ML 2,000 MG/20 ML SYRINGE IVPB ONE (12:29)
[2018-07-20] MEDS ORDERED: Ringers Solution, Lactated 1,000 ML IVC SCH ×3 (12:30→18:15)
[2018-07-20] MEDS ORDERED: Lidocaine -MPF 4% 5 ML AMPUL ONE (12:37)
[2018-07-20] MEDS ORDERED: Lidocaine -MPF 2% 2 ML VIAL ONE (12:37)
[2018-07-20] MEDS ORDERED: *HR* Succinylcholine 200 MG/10 ML VIAL IVP ONE (12:37)
[2018-07-20] MEDS ORDERED: *HR* Rocuronium Bromide 50 MG/5 ML VIAL ONE (12:37)
[2018-07-20] MEDS ORDERED: Ondansetron 4 MG/2 ML VIAL ONE (12:37)
[2018-07-20] MEDS ORDERED: Dexamethasone 4 MG/ML VIAL ONE (12:37)
[2018-07-20] MEDS ORDERED: *HR* Propofol 200 MG/20 ML VIAL IVP ONE (12:38)
[2018-07-20] MEDS ORDERED: *HR* FentaNYL (PF) 100 MCG/2 ML VIAL ONE (12:38)
[2018-07-20] MEDS ORDERED: EPHEDrine 50 MG/ML VIAL ONE (13:14)
[2018-07-20] MEDS ORDERED: *HR* Phenylephrine 10 MG/ML VIAL ONE (13:23)
[2018-07-20] MEDS ORDERED: *HR* PHENYLEPHRINE 1,000 MCG/10 ML SYRINGE IVP ONE (13:33)
--- NOTE | 2018-07-20 14:02 | Event Note ---
Date of Encounter: 07/20/18 Time of Encounter: 13:57 - Cardiology Event Note Echo images personally reviewed. Grossly, there is severe aortic stenosis. LV systolic function remains normal. Given these findings in addition to patient's overall comorbidities, she will be at high cardiovascular risk for surgery. Since surgery is necessary to prevent debilitation and further decline in morbidity, recommend cautious anesthesia guidance perioperatively. Outpatient Cardiology follow up recommended. Will sign off.
--- NOTE | 2018-07-20 14:53 | Orthopedic Operative Note ---
Date of procedure: 07/20/18 Procedure: OPERATIVE REPORT SURGEON: Isael Galdamez MD PREOPERATIVE DIAGNOSIS: Left displaced intertrochanteric hip fracture POSTOPERATIVE DIAGNOSIS: Left displaced intertrochanteric hip fracture PROCEDURE: Left hip nailing ANESTHESIA: Gen. anesthesia SPECIMENS: No specimens IMPLANTS: Synthes TFN measuring 10 mm x 125 degrees with an 85 mm lag screw PREOPERATIVE NOTE The surgical plan was reviewed with the patient. The risks, benefits, alternatives, and potential complications of this procedure were discussed with the patient including injury to veins, arteries, nerves, tendons, ligaments, and bone. Also discussed were the risks of infection, bleeding, pain, blood clots, the possible need for a blood transfusion, the possible need for further procedures, heart attack, stroke, and . Additional risks include malunion, nonunion, hardware failure, and hardware cut out. All of this was explained in simple terms, and the patient verbalized understanding and wished to proceed. Consent was given to proceed with surgery. PROCEDURE: The patient was seen in the preoperative holding area where the identify and the consent were confirmed. The left hip was marked. Final questions were answered. The patient was brought back to the operating room. A huddle was pe rformed with the patient and all vital surgical team members confirming patient identity, the correct procedure, and the correct operative site. General anesthesia was administered. The patient was placed supine on the operating room table. Traction, adduction, and internal rotation was placed in the left lower extremity. The fracture did barely budge and there is felt to be partial healing as if this was a subacute injury. X-rays confirmed good alignment after traction was placed. The operative extremity was prepped and draped in the usual sterile fashion. A surgical time out was performed immediately preceding the incision with all personnel in the operating room to confirm patient identity, the correct operative site and extremity, correct radiographic studies, availability of appropriate surgical equipment, and agreement on the planned procedure. A longitudinal incision was made proximal to the greater trochanter and dissection proceeded through the subcutaneous tissue and deep fascia. The guidewires placed in the proximal femur was then opened with the opening reamer. Ball-tipped guidewire was placed and reaming started at 9 mm and went up in 0.5 mm increments to 11.5 mm with good chatter. The definitive 10 mm nail was placed and using a triple sleeve a second incision was marked, opened, and dissection proceeded through the subcutaneous tissue and fascia. The guidewire was drilled into the femoral head and overreamed and the definitive 85 mm blade was tapped into position. A third incision was made and the fascia was opened and the definitive interlocking screw was placed. X-rays confirmed good alignment. The wounds were copiously irrigated and the deep layer was closed with 0 Vicryl stitches followed by the skin with 3-0 Vicryl and serafin. The patient was taken off the operating room table and placed on her hospital bed in good position. The instrument, sponge, and needle counts were correct after wound closure. POST OPERATIVE PLAN: Weight bearing as tolerated on the bilateral lower extremities, aspirin for DVT prophylaxis, and follow-up in 2 weeks for staple removal. Was there an research assistant member present: No Estimated blood loss (cc): 1
--- NOTE | 2018-07-20 15:16 | Anesthesia Evaluation Post Op ---
Date of Encounter: 07/20/18 Time of Encounter: 15:16 - Vital Signs Vital Signs: Vital Signs/O2 Sat, Most Current Temp Pulse Resp BP Pulse Ox 98.2 F 69 16 156/55 100 07/20/18 15:09 07/20/18 15:09 07/20/18 15:09 07/20/18 15:09 07/20/18 15:09 - Lungs Lungs: Clear Ascult./Percussion - Airway Airway: Non-obstructed - Cardiovascular Regular Rate - Mental Status Mental Status: Asleep with brisk response to light stimulation - Nausea Vomiting Nausea Vomiting: Not Present - Hydration Hydration: NPO, Goodwin catheter - Discharge PostOp Status: Transfer Patient to floor
[2018-07-20] MEDS ORDERED: *HR* Metoprolol 5 MG/5 ML VIAL IVP PRN (15:31)
[2018-07-20] MEDS ORDERED: Naloxone 0.4 MG/ML INJ IVP PRN (15:31)
[2018-07-20] MEDS ORDERED: Acetaminophen 325 MG TABLET PO PRN (15:31)
[2018-07-20] MEDS: Isosorbide MONOnitrate (24 HR) 60 MG TAB.ER.24H PO SCH (17:29)
[2018-07-20 18:23] LABS: Bilirubin,Urine Small (Negative); Blood,Urine Small (Negative); Clarity,Urine Cloudy (Clear); Color,Urine Dark Yellow (Yellow); Glucose,Urine (UA) Normal (Normal); Ketones,Urine Negative (Negative); Leukocyte Esterase,Urine Large (Negative); Nitrite,Urine Negative (Negative); PH,Urine 5.5 pH Units (5.0-8.0); Protein,Urine 30 mg/dL (Neg-Trace); Specific Gravity,Urine 1.019 (1.010-1.025); Urobilinogen,Urine Normal (Normal)
[2018-07-20 18:25] LABS: Bacteria,Urine None Seen per hpf (None-Few); Hyaline Casts,Urine Few per lpf (None-Few); RBC,Urine 15-30 per hpf (0-3); Squamous Epithelial Cell,Urine Few per lpf (None-Few); WBC,Urine TNTC per hpf (0-3)
[2018-07-20] MEDS: Ranolazine 500 MG TAB.ER.12H PO SCH (21:39)
[2018-07-21] MEDS: hydrALAZINE 10 MG TABLET PO SCH ×5 (00:25→23:28)
[2018-07-21] MEDS: OXYCODONE Oral CONC 10 MG/0.5 ML ORAL.SYG SL PRN ×2 (00:31→08:22)
[2018-07-21] MEDS ORDERED: Haloperidol Lactate 5 MG/ML VIAL IM ONE ×3 (02:01→22:39)
[2018-07-21 06:07] LABS: Hematocrit 23.8 % (35.3-44.9); Hemoglobin 7.6 g/dL (11.5-15.4)
[2018-07-21 06:08] LABS: Basophils % 0.2 %; Hemoglobin 7.4 g/dL (11.5-15.4); Immature Granulocytes % 0.5 % (0-4); Lymphocytes # 1.4 K/mcL (0.6-4.6); Lymphocytes % 11.6 %; Mean Corpuscular HGB Conc 32.2 g/dL (31.6-35.5); Mean Corpuscular Hemoglobin 33.3 pg (28.0-33.3); Mean Corpuscular Volume 103.6 fL (83.0-100.0); Mean Platelet Volume 10.4 fL (9.4-12.4); Monocytes # 1.4 K/mcL (0.0-1.3); Monocytes % 11.7 %; Neutrophils # 9.1 K/mcL (1.6-8.9); Nucleated Red Blood Cells 0.3 /100 WBC (0); Platelet Count 144 K/mcL (140-400); Red Blood Count 2.22 M/mcL (3.82-4.97)
[2018-07-21 06:27] LABS: Calcium 8.7 mg/dL (8.6-10.3)
[2018-07-21] MEDS: Isosorbide MONOnitrate (24 HR) 60 MG TAB.ER.24H PO SCH (07:43)
[2018-07-21] MEDS: Ranolazine 500 MG TAB.ER.12H PO SCH ×2 (07:43→19:48)
--- NOTE | 2018-07-21 08:05 | Internal Med Progress Note ---
<Ej Ross M - Last Filed: 07/21/18 16:59> Hospitalist Progress Note - Encounter Date of Encounter: 07/21/18 - Exam Vitals: Temp Pulse Resp BP Pulse Ox 98.0 F 104 16 149/56 97 07/21/18 15:19 07/21/18 15:19 07/21/18 15:19 07/21/18 15:19 07/21/18 15:19 - Assessment and Plan (1) Hypertension Current Visit: No Status: Chronic (2) CKD (chronic kidney disease) stage 3, GFR 30-59 ml/min Current Visit: No Status: Acute (3) CAD (coronary artery disease) Current Visit: No Status: Chronic (4) HLD (hyperlipidemia) Current Visit: No Status: Acute (5) Intertrochanteric fracture of left hip Current Visit: No Status: Acute (6) DVT prophylaxis Current Visit: Yes Status: Acute (7) Anemia Current Visit: Yes Status: Acute (8) Acute delirium Current Visit: Yes Status: Acute (9) UTI (urinary tract infection) Current Visit: Yes Status: Acute (10) Chronic diastolic (congestive) heart failure Current Visit: Yes Status: Acute - Time Spent with Patient Total time spent is greater than 50% in coordination of care (as documented) at patient's floor/unit and/or counseling patient: Internal Medicine: Result - Labs CBC & Chem 7: 07/21/18 05:02 07/21/18 05:02 Labs: Short CBC 07/21/18 07/21/18 Range/Units 05:02 05:02 WBC 12.0 H D (4.3-11.1) K/mcL Hgb 7.6 L 7.4 L (11.5-15.4) g/dL Hct 23.8 L 23.0 L (35.3-44.9) % Plt Count 144 (140-400) K/mcL Neutrophils # 9.1 H (1.6-8.9) K/mcL BMP 07/21/18 05:02 Sodium 139 Potassium 5.0 Chloride 105 Carbon Dioxide 18 L BUN 60 H Creatinine 2.76 H Glucose 83 Calcium 8.7 Urine 07/20/18 Range/Units 18:15 Urine Color Dark Yellow (Yellow) Urine Clarity Cloudy A (Clear) Urine pH 5.5 (5.0-8.0) pH Units Ur Specific [place] 1.019 (1.010-1.025) Urine Protein 30 H (Neg-Trace) mg/dL Urine Glucose (UA) Normal (Normal) mg/dL - ABG Interpretation ABG results: PT/INR, D-dimer PT 12.7 Seconds (9.4-12.1) H 07/20/18 04:25 - Impressions Impressions Fluoroscopy 07/20/18 00:00 IMPRESSION: Intraprocedural fluoroscopic spot images as above. See separate procedure report for more information. D/ / 07/20/2018 14:23:02 Jona Carcamo MD / [email or web address] Interpreting Provider: Jona Carcamo MD Hip X-Ray 07/20/18 00:00 IMPRESSION: Intraprocedural fluoroscopic spot images as above. See separate procedure report for more information. D/ / 07/20/2018 14:23:02 Jona Carcamo MD / [email or web address] Interpreting Provider: Jona Carcamo MD Consult Discharge Plan - Plan Referrals: NONE,PCP [Primary Care Provider] - <Sanam Bauman N - Last Filed: 07/21/18 17:47> Hospitalist Progress Note - Encounter Date of Encounter: 07/21/18 Time of Encounter: 08:05 - Subjective Interval History: Patient seen and examined at the bedside. Nursing staff reports significant agitation this morning, and sitter is present at the bedside. Patient does not answer questions appropriately, but does not appear to be in distress. She reportedly removed her catheter overnight, and has not voided since approximately 3am. Morning medications were refused. - Exam Vitals: Temp Pulse Resp BP Pulse Ox 97.8 F 119 18 134/57 94 07/21/18 07:15 07/21/18 07:15 07/21/18 07:15 07/21/18 07:15 07/21/18 07:15 Exam: GENERAL: Elderly female in no acute distress. She wakes easily to light touch. HEENT: Normocephalic. Frontal contusion present with ecchymosis. CARDIOVASCULAR: Regular rate and rhythm. S1 and S2 present. Systolic murmur present. RESPIRATORY: CTA bilaterally. Chest rises and falls symmetrically with respiration. No accessory muscle use noted. GASTROINTESTINAL: Abdomen is soft, nontender, nondistended. EXTREMITIES: No clubbing or cyanosis. Left lower extremity is held in appropriate post-operative position. SCDs present. NEUROLOGIC: No apparent focal deficits. Patient does not answer questions posed to her. - Assessment and Plan (1) Intertrochanteric fracture of left hip Current Visit: No Status: Acute Assessment and Plan: Imaging performed at [facility] demonstrated left intertrochanteric hip fracture. Day 1 S/p surgical repair. - Continue pain control PRN - Appreciate orthopedics recommendations (2) UTI (urinary tract infection) Current Visit: Yes Status: Acute Assessment and Plan: Urinalysis significant for large leukocyte esterse, TNTC WBCs, and few squamous epithelial cells. Small blood and bilirubin also present, with 15-30 RBC noted. - Rocephin 1000mg daily - Urine culture pending; will adjust antibiotics as indicated based on final results (3) Cpcnv-eg-lwyndsr kidney injury Current Visit: Yes Status: Acute Assessment and Plan: Increased creatinine of 2.76 on morning labs. Baseline appears to be around 1.5- 1.6. - IVF hydration with 0.9%NS @75mL/hour - Avoid nephrotoxins and renally dose medications - Repeat creatinine with AM labs (4) Anemia Current Visit: Yes Status: Acute Assessment and Plan: Likely secondary to intraoperative losses. 1 unit PRBC transfused today for hemoglobin of 7.4. Post-transfusion hemoglobin improved at 8.3 - Monitor for signs of acute bleeding and repeat H&H if indicated - Repeat and trend CBC with AM labs (5) Chronic diastolic (congestive) heart failure Current Visit: Yes Status: Acute Assessment and Plan: Repeat echocardiogram yesterday demonstrated maintained LVEF of 60%. - Continue home medications of aspirin, statin, imdur, and ranexa - Close clinical monitoring for signs of fluid overload (6) Acute delirium Current Visit: Yes Status: Acute Assessment and Plan: Likely secondary to hospitalization, pain, baseline dementia, and acute UTI. - Continue use of sitter - Consider haldol PRN severe agitation (7) DVT prophylaxis Current Visit: Yes Status: Acute Assessment and Plan: - Heparin 5000units SQ Q12H - Time Spent with Patient Total time spent is greater than 50% in coordination of care (as documented) at patient's floor/unit and/or counseling patient: Internal Medicine: Result - Labs CBC & Chem 7: 07/21/18 16:52 07/21/18 05:02 Labs: Short CBC 07/21/18 07/21/18 Range/Units 05:02 05:02 WBC 12.0 H D (4.3-11.1) K/mcL Hgb 7.6 L 7.4 L (11.5-15.4) g/dL Hct 23.8 L 23.0 L (35.3-44.9) % Plt Count 144 (140-400) K/mcL Neutrophils # 9.1 H (1.6-8.9) K/mcL BMP 07/21/18 05:02 Sodium 139 Potassium 5.0 Chloride 105 Carbon Dioxide 18 L BUN 60 H Creatinine 2.76 H Glucose 83 Calcium 8.7 Urine 07/20/18 Range/Units 18:15 Urine Color Dark Yellow (Yellow) Urine Clarity Cloudy A (Clear) Urine pH 5.5 (5.0-8.0) pH Units Ur Specific [place] 1.019 (1.010-1.025) Urine Protein 30 H (Neg-Trace) mg/dL Urine Glucose (UA) Normal (Normal) mg/dL - ABG Interpretation ABG results: PT/INR, D-dimer PT 12.7 Seconds (9.4-12.1) H 07/20/18 04:25 - Impressions Impressions Fluoroscopy 07/20/18 00:00 IMPRESSION: Intraprocedural fluoroscopic spot images as above. See separate procedure report for more information. D/ / 07/20/2018 14:23:02 Jona Carcamo MD / [email or web address] Interpreting Provider: Jona Carcamo MD Hip X-Ray 07/20/18 00:00 IMPRESSION: Intraprocedural fluoroscopic spot images as above. See separate procedure report for more information. D/ / 07/20/2018 14:23:02 Jona Carcamo MD / [email or web address] Interpreting Provider: Jona Carcamo MD Echocardiogram 07/20/18 07:59 Impressions: LVEF 60%. Borderline increased LV wall thickness. Mild left ventricular diastolic dysfunction. RV size is not well visualized. Function is grossly normal. Mild aortic regurgitation. Severely calcified/thickened aortic valve leaflets with severe reduction in leaflet excursion. Moderate-severe aortic stenosis by Doppler (PV 3.7m/s, MG 30 mmHg, DI 0.28, EULALIO 0.9cm2). Grossly, there is severe aortic stenosis. Mild-moderate mitral regurgitation. Mild tricuspid regurgitation. No pulmonary hypertension by TR signal obtained. Left Ventricular Wall Motion: Rest Echo Findings All wall segments showed normal motion. Findings: Study Quality * Technically adequate exam. ECG Findings * Normal sinus rhythm. Left Ventricle * LVEF 60%. * Borderline increased LV wall thickness. * Mild left ventricular diastolic dysfunction. Right Ventricle * RV size is not well visualized. Function is grossly normal. Left Atrium * Severely dilated left atrium. Right Atrium * Mildly dilated right atrium. Aortic Valve * Mild aortic regurgitation. * Aortic valve leaflet morphology not optimally visualized. Suspect tricuspid valve. * Severely calcified/thickened aortic valve leaflets with severe reduction in leaflet excursion. * Moderate-severe aortic stenosis by Doppler (PV 3.7m/s, MG 30 mmHg, DI 0.28, EULALIO 0.9cm2). Mitral Valve * Mild-moderate mitral regurgitation. * Mildly thickened mitral valve leaflets. * No mitral stenosis. Tricuspid Valve * Tricuspid valve not well visualized. * Mild tricuspid regurgitation. Pulmonic Valve * Pulmonic valve is not well visualized. * No pulmonic stenosis. * No pulmonic regurgitation. Pulmonary Artery * Pulmonary artery not well visualized. Aorta * Normally sized aortic root. Pericardium * There is no pericardial effusion present. Interatrial Septum * No evidence of PFO by color Doppler. IVC * The IVC is not well evaluated. <Ej Ross M - Last Filed: 07/21/18 16:59> (1) Hypertension Qualifiers: Hypertension type: essential hypertension Qualified Code(s): I10 - Essential (primary) hypertension (3) CAD (coronary artery disease) Qualifiers: Coronary Disease-Associated Artery/Lesion type: bypass graft, autologous vein Associated angina: without angina Qualified Code(s): I25.810 - Atherosclerosis of coronary artery bypass graft(s) without angina pectoris (4) HLD (hyperlipidemia) Qualifiers: Hyperlipidemia type: mixed hyperlipidemia Qualified Code(s): E78.2 - Mixed hyperlipidemia (5) Intertrochanteric fracture of left hip Qualifiers: Encounter type: initial encounter Fracture type: closed Fracture alignment: displaced Qualified Code(s): S72.142A - Displaced intertrochanteric fracture of left femur, initial encounter for closed fracture (7) Anemia Qualifiers: Anemia type: unspecified type Qualified Code(s): D64.9 - Anemia, unspecified <Sanam Bauman N - Last Filed: 07/21/18 17:47> (1) Intertrochanteric fracture of left hip Qualifiers: Encounter type: initial encounter Fracture type: closed Fracture alignment: displaced Qualified Code(s): S72.142A - Displaced intertrochanteric fracture of left femur, initial encounter for closed fracture (4) Anemia Qualifiers: Anemia type: unspecified type Qualified Code(s): D64.9 - Anemia, unspecified
--- NOTE | 2018-07-21 08:22 | Orthopedics Progress Note ---
Date of Encounter: 07/21/18 Time of Encounter: 08:20 - Assessment and Plan (1) Intertrochanteric fracture of left hip Current Visit: No Status: Acute Qualifiers: Encounter type: initial encounter Fracture type: closed Fracture alignment: displaced Qualified Code(s): S72.142A - Displaced intertrochanteric fracture of left femur, initial encounter for closed fracture Subjective Interval history: S: Patient is agitated this morning O: Afebrile on the vital signs are stable Left hip dressing is clean, dry, and intact No deformities Grossly dorsiflex and plantar flex his ankle and toes The foot is well-perfused Hemoglobin noted Elevated creatinine A: Postoperative day 1 after left hip fixation with acute blood loss anemia from surgery and rising creatinine P: We will transfuse 1 unit today Supportive care per the hospitalist Therapy when able Goodwin out when okay with the hospitalist Objective Vital signs: Vital Signs Temp Pulse Resp BP Pulse Ox 07/21/18 07:15 97.8 F 119 18 134/57 94 07/21/18 02:09 98.9 F 109 14 118/44 98 07/20/18 23:33 98.2 F 90 15 163/65 94 07/20/18 18:52 97.6 F 89 17 128/70 100 07/20/18 18:25 97.9 F 67 14 123/63 100 07/20/18 17:25 97.7 F 67 15 121/62 97 07/20/18 16:25 97.0 F L 86 16 105/64 97 07/20/18 15:55 97.4 F L 94 16 126/59 97 07/20/18 15:25 97.2 F L 85 16 130/51 99 07/20/18 15:09 98.2 F 69 16 156/55 100 07/20/18 14:59 98.2 F 78 16 120/38 100 07/20/18 14:49 66 12 128/43 100 07/20/18 14:39 69 16 127/37 100 07/20/18 14:29 98.6 F 66 16 126/43 96 07/20/18 11:59 98.7 F 80 17 93 Intake and Output 07/20/18 07/21/18 07/21/18 23:59 07:59 15:59 Intake Total 250 / 250 Balance 250 / 250 Intake: IV Fluids 100 / 100 Ancef 2,000 MG In 0.9 % Sodium 100 / 100 Chloride 100 ML @ 200 mls/hr IVPB Q8HR [facility] Rx#:[id number] Oral 150 / 150 - Labs CBC & BMP: 07/21/18 05:02 07/21/18 05:02 Labs: Abnormal lab results WBC 12.0 K/mcL (4.3-11.1) H D 07/21/18 05:02 RBC 2.22 M/mcL (3.82-4.97) L 07/21/18 05:02 Hgb 7.4 g/dL (11.5-15.4) L 07/21/18 05:02 Hct 23.0 % (35.3-44.9) L 07/21/18 05:02 MCV 103.6 fL (83.0-100.0) H 07/21/18 05:02 Neutrophils # 9.1 K/mcL (1.6-8.9) H 07/21/18 05:02 Monocytes # 1.4 K/mcL (0.0-1.3) H 07/21/18 05:02 Nucleated RBCs/100 WBC 0.3 /100 WBC (0) H 07/21/18 05:02 PT 12.7 Seconds (9.4-12.1) H 07/20/18 04:25 Carbon Dioxide 18 mEq/L (23-29) L 07/21/18 05:02 BUN 60 mg/dL (8-23) H 07/21/18 05:02 Creatinine 2.76 mg/dL (0.60-1.20) H 07/21/18 05:02 Est GFR ( Amer) 20 (> 60) L 07/21/18 05:02 Est GFR (Non-Af Amer) 16 (> 60) L 07/21/18 05:02 Calculated Osmolality 304 (280-300) H 07/21/18 05:02 Urine Clarity Cloudy (Clear) A 07/20/18 18:15 Urine Protein 30 mg/dL (Neg-Trace) H 07/20/18 18:15 Urine Blood Small (Negative) H 07/20/18 18:15 Urine Bilirubin Small (Negative) H 07/20/18 18:15 Ur Leukocyte Esterase Large (Negative) H 07/20/18 18:15 Urine Microscopic RBC 15-30 per hpf (0-3) H 07/20/18 18:15 Urine Microscopic WBC TNTC per hpf (0-3) H 07/20/18 18:15 Ur Culture Indicated? YES (NO) A 07/20/18 18:15 Consult Discharge Plan - Plan Referrals: NONE,PCP [Primary Care Provider] -
[2018-07-21] MEDS: cefTRIAXone 1,000 MG in Water for inj. (sterile) 20 ML 10 ML IVP SCH (08:28)
[2018-07-21] MEDS ORDERED: 0.9 % Sodium Chloride 250 ML IVC SCH (08:45)
--- NOTE | 2018-07-21 08:58 | Event Note ---
Date of Encounter: 07/21/18 Time of Encounter: 08:53 Patient was seen and examined. I agree with the progress note as written by the resident physician. Patient is here with a left intertrochanteric hip fracture and is awaiting cardiology operative clearance. underwent left hip nailing yesterday. Also UTI diangnosed yesterday and started on ceftriaxone. The patient came in to us with a history of CHF, coronary disease, hyperlipidemia, hypertension, PAD, CKD, as a transfer from [facility] to her fall. This sounds mechanical in nature. Was found to have a left intertrochanteric hip fracture. Pain is adequately controlled. Afebrile. GEN: NAD CVS: tachycardic, S1, S2, No m/r/g RESP: CTAB ABD: Soft, NT, ND, +BS EXT: No edema. 2+ DP. No rashes. NEURO: Nonfocal Continue pain control. c/w ceftriaxone and follow up on urine cutlures Monitor H/H. hgb down to 7.4 from 8.2 yesterday. was 9.0 on 07/19 Has SASHA on CKD. Would gently hydrate with normal saline. Monitor for signs of volume overload. EF 60% and mild diastolic dysfunction. Has severe . Continue home medication Heparin subcutaneous for DVT prophylaxis
[2018-07-21] MEDS: Aspirin Enteric Coated 325 MG Tablet PO SCH ×2 (12:41→19:48)
[2018-07-21 17:05] LABS: Hematocrit 25.2 % (35.3-44.9); Hemoglobin 8.3 g/dL (11.5-15.4)
[2018-07-21] MEDS: 0.9 % Sodium Chloride 1,000 ML IVC SCH (18:12)
--- NOTE | 2018-07-21 21:23 | Electrocardiograph Report ---
[place] [id number] Test Date: 2018-07-19 Pat Name: Brigida Corrales Department: 114 Room: [facility] Gender: F Sas Programmer: : 1930 Requested By: Sanam Bauman Order Number: [id number] Reading MD: Ricarda Burgess Measurements Intervals [place] Rate: 58 P: 83 DE: 251 QRS: 4 QRSD: 102 T: 33 QT: 437 QTc: 435 Interpretive Statements SINUS BRADYCARDIA WITH FIRST DEGREE AV BLOCK ARTIFACT Electronically Signed On 07-21-2018 21:21:51 EST by Ricarda Burgess
[2018-07-22] MEDS: OXYCODONE Oral CONC 10 MG/0.5 ML ORAL.SYG SL PRN ×3 (03:29→21:07)
[2018-07-22 05:17] LABS: Potassium 4.7 mEq/L (3.5-5.1)
[2018-07-22] MEDS: hydrALAZINE 10 MG TABLET PO SCH ×3 (05:26→17:26)
[2018-07-22 07:17] LABS: Basophils % 0.1 %; Eosinophils % 0.1 %; Hematocrit 21.8 % (35.3-44.9); Hemoglobin 7.3 g/dL (11.5-15.4); Immature Granulocytes % 0.8 % (0-4); Lymphocytes # 0.9 K/mcL (0.6-4.6); Lymphocytes % 7.8 %; Mean Corpuscular HGB Conc 33.5 g/dL (31.6-35.5); Mean Corpuscular Hemoglobin 32.7 pg (28.0-33.3); Mean Corpuscular Volume 97.8 fL (83.0-100.0); Mean Platelet Volume 10.3 fL (9.4-12.4); Monocytes # 0.9 K/mcL (0.0-1.3); Monocytes % 8.3 %; Neutrophils # 9.4 K/mcL (1.6-8.9); Nucleated Red Blood Cells 0.2 /100 WBC (0); Platelet Count 105 K/mcL (140-400); Red Blood Count 2.23 M/mcL (3.82-4.97); Segmented Neutrophils % 82.9 %
--- NOTE | 2018-07-22 08:33 | Orthopedics Progress Note ---
Date of Encounter: 07/22/18 Time of Encounter: 08:31 - Assessment and Plan (1) Intertrochanteric fracture of left hip Current Visit: No Status: Acute Qualifiers: Encounter type: initial encounter Fracture type: closed Fracture alignment: displaced Qualified Code(s): S72.142A - Displaced intertrochanteric fracture of left femur, initial encounter for closed fracture Subjective Interval history: S: Patient remains agitated and not answering questions appropriately. O: Afebrile on the vital signs are stable Left hip dressing is changed and the wound is clean, dry, and intact. No deformities Grossly dorsiflex and plantar flex his ankle and toes The foot is well-perfused Hemoglobin noted Elevated creatinine A: Postoperative day 2 after left hip fixation with acute blood loss anemia from surgery and elevated creatinine P: Resume postoperative care. Daily dressing changes We will transfuse 1 unit today Supportive care per the hospitalist Therapy when able Objective Vital signs: Vital Signs Temp Pulse Resp BP Pulse Ox 07/22/18 06:50 97.6 F 78 17 127/100 97 07/22/18 03:15 97.6 F 74 17 120/90 95 07/21/18 22:37 97.6 F 78 19 115/49 96 07/21/18 19:48 96 07/21/18 15:19 98.0 F 104 16 149/56 97 07/21/18 12:23 98.1 F 97 16 153/63 07/21/18 12:08 97.6 F 94 16 116/71 98 07/21/18 11:47 97.4 F L 97 16 116/71 95 Intake and Output 07/21/18 07/22/18 07/22/18 23:59 07:59 15:59 Intake Total 500 / 500 50 / 50 Output Total 150 / 150 0 / 0 Balance 350 / 350 50 / 50 Intake: IV Fluids 500 / 500 Lactated Ringers 1,000 ML @ 25 500 / 500 mls/hr IVC .Q24H [facility] Rx#: [id number] Oral 50 / 50 Output: Urine 0 / 0 Straight Cath 150 / 150 Other: Stool Size Smear Stool Consistency liquid # Urine Diapers 1 # Bowel Movements 0 # Bowel Movement Diapers 1 Weight 64.3 kg Patient Weight 07/22/18 23:59 Weight 64.3 kg - Labs CBC & BMP: 07/22/18 06:45 07/22/18 04:31 Labs: Abnormal lab results WBC 11.3 K/mcL (4.3-11.1) H 07/22/18 06:45 RBC 2.23 M/mcL (3.82-4.97) L 07/22/18 06:45 Hgb 7.3 g/dL (11.5-15.4) L 07/22/18 06:45 Hct 21.8 % (35.3-44.9) L 07/22/18 06:45 Plt Count 105 K/mcL (140-400) L 07/22/18 06:45 Neutrophils # 9.4 K/mcL (1.6-8.9) H 07/22/18 06:45 Nucleated RBCs/100 WBC 0.2 /100 WBC (0) H 07/22/18 06:45 PT 12.7 Seconds (9.4-12.1) H 07/20/18 04:25 Carbon Dioxide 22 mEq/L (23-29) L 07/22/18 04:31 BUN 72 mg/dL (8-23) H 07/22/18 04:31 Creatinine 2.94 mg/dL (0.60-1.20) H 07/22/18 04:31 Est GFR ( Amer) 18 (> 60) L 07/22/18 04:31 Est GFR (Non-Af Amer) 15 (> 60) L 07/22/18 04:31 Calculated Osmolality 303 (280-300) H 07/22/18 04:31 Calcium 8.0 mg/dL (8.6-10.3) L 07/22/18 04:31 Urine Clarity Cloudy (Clear) A 07/20/18 18:15 Urine Protein 30 mg/dL (Neg-Trace) H 07/20/18 18:15 Urine Blood Small (Negative) H 07/20/18 18:15 Urine Bilirubin Small (Negative) H 07/20/18 18:15 Ur Leukocyte Esterase Large (Negative) H 07/20/18 18:15 Urine Microscopic RBC 15-30 per hpf (0-3) H 07/20/18 18:15 Urine Microscopic WBC TNTC per hpf (0-3) H 07/20/18 18:15 Ur Culture Indicated? YES (NO) A 07/20/18 18:15 Consult Discharge Plan - Plan Additional Instructions: PENITENTIARY DISCHARGE INSTRUCTIONS Dr. Galdamez PROCEDURE PERFORMED Reduction and fixation of left hip. Incision care -Daily dressing changes to the left hip with dry gauze and either paper tape or medipore tape. -Avoid soaking wound in water (no hot tubs, bathtubs, swimming pools). -May shower after 2 weeks from surgery date. Carefully wash incision with soap and water. Gently pat it dry. Don't rub the incision, or apply creams or lotions. Sit on a shower stool when showering to keep from falling. Weight bearing status -Weightbearing as tolerated to the bilateral lower extremities. Medications -Pain medication per the discharging medical doctor -Enteric coated aspirin 325 mg by mouth twice per day for 28 days from the date of the surgery. Other -Knee high ACE hose 23 hours per day -Consult physical and occupational therapy for mobilization. -Up to chair with assistance at least twice per day. -Follow up with your primary care physician to discuss testing for bone mineral density. Follow-up with Dr. Galdamez at the office 2 weeks from the surgery date for a post operative evaluation. Call the office at [phone] to schedule appointment. Referrals: NONE,PCP [Primary Care Provider] -
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
[2018-07-22] MEDS: cefTRIAXone 1,000 MG in Water for inj. (sterile) 20 ML 10 ML IVP SCH (10:00)
[2018-07-22] MEDS: Isosorbide MONOnitrate (24 HR) 60 MG TAB.ER.24H PO SCH (10:14)
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
[2018-07-22] MEDS: Aspirin Enteric Coated 325 MG Tablet PO SCH (10:23)
[2018-07-22] MEDS: Ranolazine 500 MG TAB.ER.12H PO SCH ×3 (10:24→21:17)
[2018-07-22] MEDS ORDERED: 0.9 % Sodium Chloride 250 ML ONE (11:36)
[2018-07-22] MEDS ORDERED: Haloperidol Lactate 5 MG/ML VIAL IVP PRN (15:33)
[2018-07-22] MEDS: 0.9 % Sodium Chloride 1,000 ML IVC SCH (17:25)
[2018-07-22] MEDS ORDERED: hydrALAZINE 10 MG TABLET PO SCH (21:00)
[2018-07-22] MEDS: Aspirin 325 MG TABLET PO SCH ×2 (21:07→21:17)
[2018-07-23] MEDS: hydrALAZINE 10 MG TABLET PO SCH ×4 (00:33→18:25)
[2018-07-23] MEDS: OXYCODONE Oral CONC 10 MG/0.5 ML ORAL.SYG SL PRN ×2 (02:31→10:37)
[2018-07-23] MEDS ORDERED: Haloperidol Lactate 5 MG/ML VIAL IVP PRN ×2 (04:14→07:51)
[2018-07-23 05:02] LABS: Basophils % 0.1 %; Eosinophils % 0.1 %; Hematocrit 26.7 % (35.3-44.9); Hemoglobin 8.7 g/dL (11.5-15.4); Immature Granulocytes % 0.5 % (0-4); Lymphocytes # 0.8 K/mcL (0.6-4.6); Lymphocytes % 7.5 %; Mean Corpuscular HGB Conc 32.6 g/dL (31.6-35.5); Mean Corpuscular Hemoglobin 31.2 pg (28.0-33.3); Mean Corpuscular Volume 95.7 fL (83.0-100.0); Mean Platelet Volume 10.5 fL (9.4-12.4); Monocytes # 0.9 K/mcL (0.0-1.3); Monocytes % 7.7 %; Neutrophils # 9.4 K/mcL (1.6-8.9); Nucleated Red Blood Cells 0.4 /100 WBC (0); Platelet Count 107 K/mcL (140-400); Red Blood Count 2.79 M/mcL (3.82-4.97); Red Cell Distribution Width 15.2 % (11.5-14.5); Segmented Neutrophils % 84.1 %
[2018-07-23 05:20] LABS: Calcium 8.5 mg/dL (8.6-10.3); Potassium 5.1 mEq/L (3.5-5.1)
[2018-07-23] MEDS ORDERED: Acetaminophen IV 500 MG/50 ML INFUS..BTL IVPB ONE ×2 (05:25→22:00)
--- NOTE | 2018-07-23 06:42 | Orthopedics Progress Note ---
Date of Encounter: 07/23/18 Time of Encounter: 06:42 Subjective Interval history: Patient was seen this morning doing well without complaints. Afebrile vital signs stable. Operative extremity: Neurovascularly intact Dressing clean dry and intact Calves nontender Assessment and plan: Continue with postoperative care Stable for discharge Objective Vital signs: Vital Signs Temp Pulse Resp BP Pulse Ox 07/23/18 06:18 73 152/74 07/23/18 06:00 73 18 152/74 07/23/18 04:34 76 136/54 07/23/18 02:56 97.6 F 76 16 166/69 98 07/22/18 23:48 97.3 F L 67 16 154/58 96 07/22/18 20:35 98.2 F 69 18 148/56 96 07/22/18 15:55 97.6 F 68 16 126/76 96 07/22/18 15:37 97.7 F 68 133/71 96 07/22/18 12:40 97.8 F 71 132/58 93 07/22/18 12:20 98.1 F 60 16 100/57 94 07/22/18 06:50 97.6 F 78 17 127/100 97 Intake and Output 07/22/18 07/22/18 07/23/18 15:59 23:59 07:59 Intake Total 670 / 670 20 / 20 Output Total 50 / 50 Balance 620 / 620 20 / 20 Intake: Oral 370 / 370 20 / 20 Blood Product 300 / 300 Rbcs Leuko Poor As-1 Unit 300 / 300 [id number] Output: Urine 50 / 50 Other: Meal Lunch Dinner Percent of Meal Consumed 15% 0% Stool Size Large Stool Consistency formed Stool Color Brown # Voids 1 1 1 # Urine Diapers 1 # Bowel Movements 1 - Labs CBC & BMP: 07/23/18 03:53 07/23/18 03:53 Labs: Abnormal lab results WBC 11.2 K/mcL (4.3-11.1) H 07/23/18 03:53 RBC 2.79 M/mcL (3.82-4.97) L 07/23/18 03:53 Hgb 8.7 g/dL (11.5-15.4) L 07/23/18 03:53 Hct 26.7 % (35.3-44.9) L 07/23/18 03:53 RDW 15.2 % (11.5-14.5) H 07/23/18 03:53 Plt Count 107 K/mcL (140-400) L 07/23/18 03:53 Neutrophils # 9.4 K/mcL (1.6-8.9) H 07/23/18 03:53 Nucleated RBCs/100 WBC 0.4 /100 WBC (0) H 07/23/18 03:53 PT 12.7 Seconds (9.4-12.1) H 07/20/18 04:25 Carbon Dioxide 22 mEq/L (23-29) L 07/23/18 03:53 BUN 73 mg/dL (8-23) H 07/23/18 03:53 Creatinine 2.56 mg/dL (0.60-1.20) H 07/23/18 03:53 Est GFR ( Amer) 22 (> 60) L 07/23/18 03:53 Est GFR (Non-Af Amer) 18 (> 60) L 07/23/18 03:53 BUN/Creatinine Ratio 29 (6-26) H 07/23/18 03:53 Calculated Osmolality 307 (280-300) H 07/23/18 03:53 Calcium 8.5 mg/dL (8.6-10.3) L 07/23/18 03:53 Urine Clarity Cloudy (Clear) A 07/20/18 18:15 Urine Protein 30 mg/dL (Neg-Trace) H 07/20/18 18:15 Urine Blood Small (Negative) H 07/20/18 18:15 Urine Bilirubin Small (Negative) H 07/20/18 18:15 Ur Leukocyte Esterase Large (Negative) H 07/20/18 18:15 Urine Microscopic RBC 15-30 per hpf (0-3) H 07/20/18 18:15 Urine Microscopic WBC TNTC per hpf (0-3) H 07/20/18 18:15 Ur Culture Indicated? YES (NO) A 07/20/18 18:15 Consult Discharge Plan - Plan Additional Instructions: DETENTION DISCHARGE INSTRUCTIONS Dr. Galdamez PROCEDURE PERFORMED Reduction and fixation of left hip. Incision care -Daily dressing changes to the left hip with dry gauze and either paper tape or medipore tape. -Avoid soaking wound in water (no hot tubs, bathtubs, swimming pools). -May shower after 2 weeks from surgery date. Carefully wash incision with soap and water. Gently pat it dry. Don't rub the incision, or apply creams or lotions. Sit on a shower stool when showering to keep from falling. Weight bearing status -Weightbearing as tolerated to the bilateral lower extremities. Medications -Pain medication per the discharging medical doctor -Enteric coated aspirin 325 mg by mouth twice per day for 28 days from the date of the surgery. Other -Knee high ACE hose 23 hours per day -Consult physical and occupational therapy for mobilization. -Up to chair with assistance at least twice per day. -Follow up with your primary care physician to discuss testing for bone mineral density. Follow-up with Dr. Galdamez at the office 2 weeks from the surgery date for a post operative evaluation. Call the office at [phone] to schedule appointment. Referrals: NONE,PCP [Primary Care Provider] -
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
--- NOTE | 2018-07-23 08:13 | Internal Med Progress Note ---
Addendum entered and electronically signed by Sanam Buaman 07/23/18 17:23: Patient's nurse notified that telemetry appeared to be demonstrating heart rate persistently in the 40s and new ST depressions. Stat EKG was ordered, which demonstrated sinus arrhythmia with first-degree AV block. Patient's daily dose of propanolol will be decreased from 60 mg to 40 mg. Continue telemetry monitoring. Original Note: Hospitalist Progress Note - Encounter Date of Encounter: 07/23/18 Time of Encounter: 08:13 - Subjective Interval History: Patient seen and examined at the bedside. Patient again had significant agitatio n overnight, but appears to be sleeping comfortably at this time. Family at the bedside this morning is very concerned about this agitation, stating that it is out of character for her. Nursing staff reports no other acute complaints or concerns at this time. - Exam Vitals: Temp Pulse Resp BP Pulse Ox 97.6 F 73 18 152/74 98 07/23/18 02:56 07/23/18 06:18 07/23/18 06:00 07/23/18 06:18 07/23/18 02:56 Exam: GENERAL: Elderly female in no acute distress and sleeping comfortably. HEENT: Normocephalic. Frontal contusion present with ecchymosis. CARDIOVASCULAR: Regular rate and rhythm. S1 and S2 present. Systolic murmur present. RESPIRATORY: CTA bilaterally. Chest rises and falls symmetrically with resp iration. No accessory muscle use noted. GASTROINTESTINAL: Abdomen is soft, nontender, nondistended. EXTREMITIES: No clubbing or cyanosis. Left lower extremity is held in appropriate post-operative position. SCDs present. NEUROLOGIC: No apparent focal deficits. - Assessment and Plan (1) Intertrochanteric fracture of left hip Current Visit: No Status: Acute Assessment and Plan: Imaging performed at [facility] demonstrated left intertrochanteric hip fracture. Day 2 S/p surgical repair. - Continue pain control PRN - Appreciate orthopedics recommendations (2) Kafwj-ka-xpkyyvz kidney injury Current Visit: Yes Status: Acute Assessment and Plan: Improving today with creatinine of 2.56. Baseline creatinine appears to be around 1.5-1.6. - Continue IVF hydration with 0.9%NS @75mL/hour - Avoid nephrotoxins and renally dose medications - Repeat creatinine with AM labs. If not improved, anticipate nephrology consult for assistance with management. (3) Anemia Current Visit: Yes Status: Acute Assessment and Plan: Likely secondary to intraoperative losses. Patient has received 2 units PRBC to date. - Monitor for signs of acute bleeding and repeat H&H if indicated - Repeat and trend CBC with AM labs (4) Acute delirium Current Visit: Yes Status: Acute Assessment and Plan: Likely secondary to hospitalization, pain, baseline dementia, and acute UTI. Patient appears to be sundowning at night. - Haldol 2 mg Q4H PRN - Continue use a sitter as needed, with staff safety measures as appropriate (5) UTI (urinary tract infection) Current Visit: Yes Status: Acute Assessment and Plan: Urinalysis significant for large leukocyte esterse, TNTC WBCs, and few squamous epithelial cells. Small blood and bilirubin also present, with 15-30 RBC noted. - Rocephin 1000mg daily. (6) Chronic diastolic (congestive) heart failure Current Visit: Yes Status: Acute Assessment and Plan: Repeat echocardiogram demonstrated maintained LVEF of 60%. - Continue home medications of aspirin, statin, imdur, and ranexa - Close clinical monitoring for signs of fluid overloadphysical (7) DVT prophylaxis Current Visit: Yes Status: Acute Assessment and Plan: - Aspirin 350mg BID - Time Spent with Patient Total time spent is greater than 50% in coordination of care (as documented) at patient's floor/unit and/or counseling patient: Internal Medicine: Result - Labs CBC & Chem 7: 07/23/18 03:53 07/23/18 03:53 Labs: Short CBC 07/23/18 Range/Units 03:53 WBC 11.2 H (4.3-11.1) K/mcL Hgb 8.7 L (11.5-15.4) g/dL Hct 26.7 L (35.3-44.9) % Plt Count 107 L (140-400) K/mcL Neutrophils # 9.4 H (1.6-8.9) K/mcL BMP 07/23/18 03:53 Sodium 138 Potassium 5.1 Chloride 107 Carbon Dioxide 22 L BUN 73 H Creatinine 2.56 H Glucose 93 Calcium 8.5 L - ABG Interpretation ABG results: PT/INR, D-dimer PT 12.7 Seconds (9.4-12.1) H 07/20/18 04:25 Consult Discharge Plan - Plan Additional Instructions: [facility] DISCHARGE INSTRUCTIONS Dr. Galdamez PROCEDURE PERFORMED Reduction and fixation of left hip. Incision care -Daily dressing changes to the left hip with dry gauze and either paper tape or medipore tape. -Avoid soaking wound in water (no hot tubs, bathtubs, swimming pools). -May shower after 2 weeks from surgery date. Carefully wash incision with soap and water. Gently pat it dry. Don't rub the incision, or apply creams or lotions. Sit on a shower stool when showering to keep from falling. Weight bearing status -Weightbearing as tolerated to the bilateral lower extremities. Medications -Pain medication per the discharging medical doctor -Enteric coated aspirin 325 mg by mouth twice per day for 28 days from the date of the surgery. Other -Knee high ACE hose 23 hours per day -Consult physical and occupational therapy for mobilization. -Up to chair with assistance at least twice per day. -Follow up with your primary care physician to discuss testing for bone mineral density. Follow-up with Dr. Galdamez at the office 2 weeks from the surgery date for a post operative evaluation. Call the office at [phone] to schedule appointment. Referrals: NONE,PCP [Primary Care Provider] - (1) Intertrochanteric fracture of left hip Qualifiers: Encounter type: initial encounter Fracture type: closed Fracture alignment: displaced Qualified Code(s): S72.142A - Displaced intertrochanteric fracture of left femur, initial encounter for closed fracture (3) Anemia Qualifiers: Anemia type: unspecified type Qualified Code(s): D64.9 - Anemia, unspecified (5) UTI (urinary tract infection) Qualifiers: Urinary tract infection type: site unspecified Hematuria presence: with hematuria Qualified Code(s): N39.0 - Urinary tract infection, site not specified; R31.9 - Hematuria, unspecified
[2018-07-23] MEDS: 0.9 % Sodium Chloride 1,000 ML IVC SCH (08:52)
[2018-07-23] MEDS: cefTRIAXone 1,000 MG in Water for inj. (sterile) 20 ML 10 ML IVP SCH (08:53)
[2018-07-23] MEDS: Isosorbide MONOnitrate (24 HR) 60 MG TAB.ER.24H PO SCH (09:11)
[2018-07-23] MEDS: Aspirin 325 MG TABLET PO SCH ×2 (09:11→22:47)
[2018-07-23] MEDS: Cyanocobalamin (B-12) 1,000 MCG TABLET PO SCH (09:11)
[2018-07-23] MEDS: Ranolazine 500 MG TAB.ER.12H PO SCH ×2 (09:11→22:47)
[2018-07-23] MEDS ORDERED: Ziprasidone injection 20 MG/ML VIAL IM ONE (11:03)
[2018-07-23 15:21] LABS: Hematocrit 26.2 % (35.3-44.9); Hemoglobin 8.5 g/dL (11.5-15.4)
[2018-07-24] MEDS ORDERED: Ondansetron 4 MG/2 ML VIAL IVP ONE (01:32)
[2018-07-24] MEDS: hydrALAZINE 10 MG TABLET PO SCH ×5 (01:44→23:50)
[2018-07-24] MEDS: OXYCODONE Oral CONC 10 MG/0.5 ML ORAL.SYG SL PRN ×3 (01:53→22:15)
--- NOTE | 2018-07-24 06:35 | Orthopedics Progress Note ---
Date of Encounter: 07/24/18 Time of Encounter: 06:34 Subjective Interval history: Patient was seen this morning doing well Afebrile vital signs stable. Operative extremity: Neurovascularly intact Dressing clean dry and intact Calves nontender Assessment and plan: Continue with postoperative care Stable for discharge Objective Vital signs: Vital Signs Temp Pulse Resp BP Pulse Ox 07/24/18 05:30 97.8 F 73 20 157/57 98 07/23/18 19:48 97.9 F 62 20 130/46 97 07/23/18 15:53 98.0 F 65 14 128/47 93 07/23/18 12:21 97.8 F 07/23/18 11:45 61 16 172/52 95 07/23/18 09:00 69 16 96 Intake and Output 07/23/18 07/23/18 07/24/18 15:59 23:59 07:59 Intake Total 0 / 0 Output Total 100 / 100 460 / 460 Balance -100 / -100 -460 / -460 Intake: Oral 0 / 0 Output: Urine 100 / 100 460 / 460 Other: Meal Breakfast Percent of Meal Consumed 0% # Voids 1 # Urine Diapers 1 Weight 64.7 kg Patient Weight 07/24/18 23:59 Weight 64.7 kg - Labs CBC & BMP: 07/23/18 14:44 07/23/18 03:53 Labs: Abnormal lab results WBC 11.2 K/mcL (4.3-11.1) H 07/23/18 03:53 RBC 2.79 M/mcL (3.82-4.97) L 07/23/18 03:53 Hgb 8.5 g/dL (11.5-15.4) L 07/23/18 14:44 Hct 26.2 % (35.3-44.9) L 07/23/18 14:44 RDW 15.2 % (11.5-14.5) H 07/23/18 03:53 Plt Count 107 K/mcL (140-400) L 07/23/18 03:53 Neutrophils # 9.4 K/mcL (1.6-8.9) H 07/23/18 03:53 Nucleated RBCs/100 WBC 0.4 /100 WBC (0) H 07/23/18 03:53 PT 12.7 Seconds (9.4-12.1) H 07/20/18 04:25 Carbon Dioxide 22 mEq/L (23-29) L 07/23/18 03:53 BUN 73 mg/dL (8-23) H 07/23/18 03:53 Creatinine 2.56 mg/dL (0.60-1.20) H 07/23/18 03:53 Est GFR ( Amer) 22 (> 60) L 07/23/18 03:53 Est GFR (Non-Af Amer) 18 (> 60) L 07/23/18 03:53 BUN/Creatinine Ratio 29 (6-26) H 07/23/18 03:53 Calculated Osmolality 307 (280-300) H 07/23/18 03:53 Calcium 8.5 mg/dL (8.6-10.3) L 07/23/18 03:53 Urine Clarity Cloudy (Clear) A 07/20/18 18:15 Urine Protein 30 mg/dL (Neg-Trace) H 07/20/18 18:15 Urine Blood Small (Negative) H 07/20/18 18:15 Urine Bilirubin Small (Negative) H 07/20/18 18:15 Ur Leukocyte Esterase Large (Negative) H 07/20/18 18:15 Urine Microscopic RBC 15-30 per hpf (0-3) H 07/20/18 18:15 Urine Microscopic WBC TNTC per hpf (0-3) H 07/20/18 18:15 Ur Culture Indicated? YES (NO) A 07/20/18 18:15 Consult Discharge Plan - Plan Additional Instructions: [facility] DISCHARGE INSTRUCTIONS Dr. Galdamez PROCEDURE PERFORMED Reduction and fixation of left hip. Incision care -Daily dressing changes to the left hip with dry gauze and either paper tape or medipore tape. -Avoid soaking wound in water (no hot tubs, bathtubs, swimming pools). -May shower after 2 weeks from surgery date. Carefully wash incision with soap and water. Gently pat it dry. Don't rub the incision, or apply creams or lotions. Sit on a shower stool when showering to keep from falling. Weight bearing status -Weightbearing as tolerated to the bilateral lower extremities. Medications -Pain medication per the discharging medical doctor -Enteric coated aspirin 325 mg by mouth twice per day for 28 days from the date of the surgery. Other -Knee high ACE hose 23 hours per day -Consult physical and occupational therapy for mobilization. -Up to chair with assistance at least twice per day. -Follow up with your primary care physician to discuss testing for bone mineral density. Follow-up with Dr. Galdamez at the office 2 weeks from the surgery date for a post operative evaluation. Call the office at [phone] to schedule appointment. Referrals: NONE,PCP [Primary Care Provider] -
[2018-07-24 07:08] LABS: Basophils % 0.1 %; Eosinophils % 0.3 %; Hematocrit 24.8 % (35.3-44.9); Immature Granulocytes % 0.9 % (0-4); Lymphocytes # 0.9 K/mcL (0.6-4.6); Lymphocytes % 8.3 %; Mean Corpuscular HGB Conc 32.3 g/dL (31.6-35.5); Mean Corpuscular Hemoglobin 31.4 pg (28.0-33.3); Mean Corpuscular Volume 97.3 fL (83.0-100.0); Mean Platelet Volume 10.2 fL (9.4-12.4); Monocytes # 0.9 K/mcL (0.0-1.3); Monocytes % 8.2 %; Neutrophils # 8.7 K/mcL (1.6-8.9); Nucleated Red Blood Cells 0.4 /100 WBC (0); Platelet Count 105 K/mcL (140-400); Red Blood Count 2.55 M/mcL (3.82-4.97); Red Cell Distribution Width 15.5 % (11.5-14.5); Segmented Neutrophils % 82.2 %
[2018-07-24 07:29] LABS: Calcium 8.8 mg/dL (8.6-10.3); Potassium 4.4 mEq/L (3.5-5.1)
--- NOTE | 2018-07-24 07:34 | Internal Med Progress Note ---
Hospitalist Progress Note - Encounter Date of Encounter: 07/24/18 Time of Encounter: 07:32 - Subjective Interval History: Patient was seen and examined. Patient remains agitated and confused most of the time. Afebrile. Pain meds were decreased yesterday. CT head initially done unremarkable. Pain is adequately controlled. On room air. Was transfused 2 days ago and hgb is acceptable today. Has a UTi and is on abx. Has Kathrine as well improving. Patient is here with a left intertrochanteric hip fracture. underwent left hip nailing 07/20. Also UTI diagnosed and started on ceftriaxone. The patient came in to us with a history of CHF, coronary disease, hyperlipidemia, hypertension, PAD, CKD, as a transfer from [place] to her fall. This sounds mechanical in nature. Was found to have a left intertrochanteric hip fracture. - Exam Vitals: Temp Pulse Resp BP Pulse Ox 97.8 F 73 20 157/57 98 07/24/18 05:30 07/24/18 05:30 07/24/18 05:30 07/24/18 05:30 07/24/18 05:30 Exam: GEN: NAD CVS: tachycardic, S1, S2, No m/r/g RESP: CTAB ABD: Soft, NT, ND, +BS EXT: No edema. 2+ DP. No rashes. NEURO: Nonfocal. Confused. - Assessment and Plan (1) Intertrochanteric fracture of left hip Current Visit: No Status: Acute Assessment and Plan: s/p left hip nailing 07/20. c/w post operative care per orthopedics. c/w pain control. PT/OT as tolerated. (2) Egmyc-jw-cwfqtpr kidney injury Current Visit: Yes Status: Acute Assessment and Plan: Slowly improving. Creatinine 2.13. Has chronic kidney disease with creatinine baseline 1.5-2.0. Has been on IV fluids NS at 75 which I will stop now given sever . She is on room air. Encourge PO intake (3) Anemia Current Visit: Yes Status: Acute Assessment and Plan: Acute on chronic. blood loss anemia post op. H/H stable today at 8.0. Was transfused 1 unit 07/22 (4) Acute delirium Current Visit: Yes Status: Acute Assessment and Plan: Likely secondary to hospitalization, pain, baseline dementia, and UTI. Patient appears to be sundowning at night. Has not needed Haldol last 24-48 hours. will monitor. Pain meds decreased (5) UTI (urinary tract infection) Current Visit: Yes Status: Acute Assessment and Plan: Urinalysis significant for large leukocyte esterse, TNTC WBCs, and few squamous epithelial cells. Small blood and bilirubin also present, with 15-30 RBC noted. On IV rocephin. cx neg to date. (6) Chronic diastolic (congestive) heart failure Current Visit: Yes Status: Acute Assessment and Plan: Repeat echocardiogram demonstrated maintained LVEF of 60%. - Continue home medications of aspirin, statin, imdur, and ranexa - Close clinical monitoring for signs of fluid overloadphysical (7) DVT prophylaxis Current Visit: Yes Status: Acute Assessment and Plan: - Aspirin 350mg BID - Time Spent with Patient Total time spent is greater than 50% in coordination of care (as documented) at patient's floor/unit and/or counseling patient: Internal Medicine: Result - Labs CBC & Chem 7: 07/24/18 06:40 07/24/18 06:40 Labs: Short CBC 07/23/18 07/24/18 Range/Units 14:44 06:40 WBC 10.6 (4.3-11.1) K/mcL Hgb 8.5 L 8.0 L (11.5-15.4) g/dL Hct 26.2 L 24.8 L (35.3-44.9) % Plt Count 105 L (140-400) K/mcL Neutrophils # 8.7 (1.6-8.9) K/mcL BMP 07/24/18 06:40 Sodium 139 Potassium 4.4 Chloride 110 H Carbon Dioxide 21 L BUN 74 H Creatinine 2.13 H Glucose 101 Calcium 8.8 - ABG Interpretation ABG results: PT/INR, D-dimer PT 12.7 Seconds (9.4-12.1) H 07/20/18 04:25 Consult Discharge Plan - Plan Additional Instructions: [facility] DISCHARGE INSTRUCTIONS Dr. Galdamez PROCEDURE PERFORMED Reduction and fixation of left hip. Incision care -Daily dressing changes to the left hip with dry gauze and either paper tape or medipore tape. -Avoid soaking wound in water (no hot tubs, bathtubs, swimming pools). -May shower after 2 weeks from surgery date. Carefully wash incision with soap and water. Gently pat it dry. Don't rub the incision, or apply creams or lotions. Sit on a shower stool when showering to keep from falling. Weight bearing status -Weightbearing as tolerated to the bilateral lower extremities. Medications -Pain medication per the discharging medical doctor -Enteric coated aspirin 325 mg by mouth twice per day for 28 days from the date of the surgery. Other -Knee high ACE hose 23 hours per day -Consult physical and occupational therapy for mobilization. -Up to chair with assistance at least twice per day. -Follow up with your primary care physician to discuss testing for bone mineral density. Follow-up with Dr. Galdamez at the office 2 weeks from the surgery date for a post operative evaluation. Call the office at [phone] to schedule appointment. Referrals: NONE,PCP [Primary Care Provider] - (1) Intertrochanteric fracture of left hip Qualifiers: Encounter type: initial encounter Fracture type: closed Fracture alignment: displaced Qualified Code(s): S72.142A - Displaced intertrochanteric fracture of left femur, initial encounter for closed fracture (3) Anemia Qualifiers: Anemia type: unspecified type Qualified Code(s): D64.9 - Anemia, unspecified (5) UTI (urinary tract infection) Qualifiers: Urinary tract infection type: site unspecified Hematuria presence: with hematuria Qualified Code(s): N39.0 - Urinary tract infection, site not specified; R31.9 - Hematuria, unspecified
[2018-07-24] MEDS: Aspirin 325 MG TABLET PO SCH ×2 (09:52→20:53)
[2018-07-24] MEDS: Ranolazine 500 MG TAB.ER.12H PO SCH ×2 (09:52→20:52)
[2018-07-24] MEDS: Cyanocobalamin (B-12) 1,000 MCG TABLET PO SCH (09:52)
[2018-07-24] MEDS: Isosorbide MONOnitrate (24 HR) 60 MG TAB.ER.24H PO SCH (09:53)
[2018-07-24] MEDS: cefTRIAXone 1,000 MG in Water for inj. (sterile) 20 ML 10 ML IVP SCH (09:55)
[2018-07-24] MEDS: Acetaminophen 325 MG TABLET PO PRN (23:50)
[2018-07-25] MEDS: OXYCODONE Oral CONC 10 MG/0.5 ML ORAL.SYG SL PRN (03:12)
[2018-07-25 04:02] LABS: Basophils % 0.1 %; Eosinophils # 0.1 K/mcL (0.0-0.6); Eosinophils % 0.6 %; Hematocrit 24.4 % (35.3-44.9); Immature Granulocytes % 1.2 % (0-4); Lymphocytes # 0.8 K/mcL (0.6-4.6); Lymphocytes % 7.7 %; Mean Corpuscular HGB Conc 32.8 g/dL (31.6-35.5); Mean Corpuscular Hemoglobin 31.5 pg (28.0-33.3); Mean Corpuscular Volume 96.1 fL (83.0-100.0); Mean Platelet Volume 10.3 fL (9.4-12.4); Monocytes % 10.2 %; Nucleated Red Blood Cells 0.6 /100 WBC (0); Platelet Count 102 K/mcL (140-400); Red Blood Count 2.54 M/mcL (3.82-4.97); Red Cell Distribution Width 15.3 % (11.5-14.5); Segmented Neutrophils % 80.2 %
[2018-07-25 04:19] LABS: Calcium 8.4 mg/dL (8.6-10.3); Magnesium 2.2 mg/dL (1.6-2.6); Potassium 4.9 mEq/L (3.5-5.1)
[2018-07-25] MEDS: Acetaminophen 325 MG TABLET PO PRN ×2 (06:29→20:50)
[2018-07-25] MEDS: hydrALAZINE 10 MG TABLET PO SCH ×3 (06:34→16:46)
[2018-07-25] MEDS: cefTRIAXone 1,000 MG in Water for inj. (sterile) 20 ML 10 ML IVP SCH (07:55)
[2018-07-25] MEDS: Cyanocobalamin (B-12) 1,000 MCG TABLET PO SCH (07:55)
[2018-07-25] MEDS: Isosorbide MONOnitrate (24 HR) 60 MG TAB.ER.24H PO SCH (07:55)
[2018-07-25] MEDS: Ranolazine 500 MG TAB.ER.12H PO SCH ×2 (07:55→20:51)
[2018-07-25] MEDS: Aspirin 325 MG TABLET PO SCH ×2 (07:55→18:42)
--- NOTE | 2018-07-25 08:47 | Internal Med Progress Note ---
Hospitalist Progress Note - Encounter Date of Encounter: 07/25/18 - Exam Vitals: Temp Pulse Resp BP Pulse Ox 97.5 F L 64 20 145/55 97 07/25/18 06:44 07/25/18 06:44 07/25/18 06:44 07/25/18 06:44 07/25/18 06:44 - Time Spent with Patient Total time spent is greater than 50% in coordination of care (as documented) at patient's floor/unit and/or counseling patient: Internal Medicine: Result - Labs CBC & Chem 7: 07/25/18 03:24 07/25/18 03:24 Labs: Short CBC 07/25/18 Range/Units 03:24 WBC 9.9 (4.3-11.1) K/mcL Hgb 8.0 L (11.5-15.4) g/dL Hct 24.4 L (35.3-44.9) % Plt Count 102 L (140-400) K/mcL Neutrophils # 8.0 (1.6-8.9) K/mcL BMP 07/25/18 03:24 Sodium 136 Potassium 4.9 Chloride 107 Carbon Dioxide 17 L BUN 74 H Creatinine 2.04 H Glucose 95 Calcium 8.4 L - ABG Interpretation ABG results: PT/INR, D-dimer PT 12.7 Seconds (9.4-12.1) H 07/20/18 04:25 Consult Discharge Plan - Plan Additional Instructions: ALF DISCHARGE INSTRUCTIONS Dr. Galdamez PROCEDURE PERFORMED Reduction and fixation of left hip. Incision care -Daily dressing changes to the left hip with dry gauze and either paper tape or medipore tape. -Avoid soaking wound in water (no hot tubs, bathtubs, swimming pools). -May shower after 2 weeks from surgery date. Carefully wash incision with soap and water. Gently pat it dry. Don't rub the incision, or apply creams or lotions. Sit on a shower stool when showering to keep from falling. Weight bearing status -Weightbearing as tolerated to the bilateral lower extremities. Medications -Pain medication per the discharging medical doctor -Enteric coated aspirin 325 mg by mouth twice per day for 28 days from the date of the surgery. Other -Knee high ACE hose 23 hours per day -Consult physical and occupational therapy for mobilization. -Up to chair with assistance at least twice per day. -Follow up with your primary care physician to discuss testing for bone mineral density. Follow-up with Dr. Galdamez at the office 2 weeks from the surgery date for a post operative evaluation. Call the office at [phone] to schedule appointment. Referrals: NONE,PCP [Primary Care Provider] -
--- NOTE | 2018-07-25 09:43 | Discharge Summary ---
- NOTES TO OUTPATIENT PROVIDER Notes to Outpatient Provider: Acute Cystitis. Daily Wound care for s/p fixation of left intertrochanteric fracture. Daily dressing changes to the left hip with dry gauze and either paper tape or medipore tape. -Avoid soaking wound in water (no hot tubs, bathtubs, swimming pools). -May shower after 2 weeks from surgery date. Carefully wash incision with soap and water. Gently pat it dry. Don't rub the incision, or apply creams or lotions. Sit on a shower stool when showering to keep from falling. Weight bearing status. -Weightbearing as tolerated to the bilateral lower extremities. Date of Encounter: 07/25/18 Time of Encounter: 09:10 - Discharge Diagnosis (1) Intertrochanteric fracture of left hip Priority: Primary Status: Acute Qualifiers: Encounter type: initial encounter Fracture type: closed Fracture alignment: displaced Qualified Code(s): S72.142A - Displaced intertrochanteric fracture of left femur, initial encounter for closed fracture (2) UTI (urinary tract infection) Priority: Secondary Status: Resolved Qualifiers: Urinary tract infection type: site unspecified Hematuria presence: with hematuria Qualified Code(s): N39.0 - Urinary tract infection, site not specified; R31.9 - Hematuria, unspecified (3) Acute delirium Priority: Secondary Status: Resolved (4) Anemia Priority: Secondary Status: Chronic Qualifiers: Anemia type: unspecified type Qualified Code(s): D64.9 - Anemia, unspecified (5) Cgyks-ke-dfqnhyl kidney injury Priority: Secondary Status: Acute Qualifiers: Acute renal failure type: unspecified Chronic kidney disease stage: unspec ified stage Qualified Code(s): N17.9 - Acute kidney failure, unspecified; N18.9 - Chronic kidney disease, unspecified (6) Chronic diastolic (congestive) heart failure Priority: Secondary Status: Chronic Hospital course: Ms. Corrales is a 87 year old female with past medical history including congestive heart failure, coronary artery disease, hyperlipidemia, hypertension, peripheral arterial disease, history of [place], chronic kidney disease arriving to [facility] as a transfer from [facility]. She arrived here on 07/19/2018. She initially presented after she had an unwitnessed fall that was likely mechanical, from standing height and complaining of left hip pain. At [place], she was diagnosed with intertrochanteric fracture of the left hip and transferred here for orthopedic consultation. On July 20, the patient underwent reduction and fixation of the left intertrochanteric fracture by orthopedic surgery, Dr. Galdamez. She is received daily dressings changes with dry gauze and paper tape were Medipore tape. Daily wound management. Patient was also noted to have a urinary tract infection and was started on IV Rocephin which she received a 5 day course of. She was noted to have some acute delirium that was likely secondary to the urinary tract infection as well as sundowning. She does have history of chronic dementia and is deaf. During her hospital stay, she also has acute kidney injury on chronic knee disease that has been improving. She will be discharged pending SNF placement and will have follow-up with orthopedic surgery in 2 weeks from her surgery date. She will be discharged home with aspirin and oxycodone 5mg SL as needed for pain. Discharge discussed with: patient - Time Spent with Patient Total time spent providing and/or coordinating discharge services: - Discharge Medications Prescriptions: OXYCODONE Oral CONC [Oxycodone Oral Conc] 5 mg SL Q4HR PRN 2 Days #7 oral.syg PRN Reason: Pain Home Medications: Aspirin 325 mg PO DAILY 09/02/15 [History] Atorvastatin Calcium [Lipitor] 20 mg PO HS 09/02/15 [History] Clopidogrel [Plavix] 75 mg PO DAILY 09/02/15 [History] Furosemide [Lasix] 40 mg PO DAILY 09/02/15 [History] Isosorbide MONOnitrate (24 HR) [Imdur] 120 mg PO DAILY 09/02/15 [History] Ranolazine [Ranexa] 1,000 mg PO BID 09/02/15 [History] Raloxifene [Evista] 50 mg PO DAILY 01/24/16 [History] Citalopram Hydrobromide [Citalopram HBr] 10 mg PO DAILY 04/18/17 [History] Ferrous Sulfate [Iron] 325 mg PO DAILY 03/23/18 [History] Cyanocobalamin (B-12) [Vitamin B12] 2,000 mcg PO DAILY 07/22/18 [History] Ergocalciferol (VITAMIN D2) [Vitamin D2] 50,000 unit PO MO 07/22/18 [History] Propranolol HCl 60 mg PO DAILY 07/22/18 [History] hydrALAZINE [HydrALAZINE] 10 mg PO TID 07/22/18 [History] OXYCODONE Oral CONC [Oxycodone Oral Conc] 5 mg SL Q4HR PRN 2 Days #7 oral.syg 07/25/18 [Rx] hydrALAZINE [HydrALAZINE] 10 mg PO Q6HR tablet 07/25/18 [Rx] Allergies/Adverse Reactions: Allergy/AdvReac Type Severity Reaction Status Date / Time No Known Allergies Allergy Verified 07/12/18 15:36 Date of admission: 07/20/18 17:49 Primary care physician: PCP NONE Consults: 07/19/18 18:35 Consult to Anthropology Department Chair [CONS] Routine Reason for SW Consult: d/c planning 07/19/18 19:00 Consult to Cardiology [CONS] Routine Comment: Consulting Provider: Luis Armando Ta Reason for Consult: surgery clearance Call Completed: No 07/19/18 23:24 Consult to Orthopedic Surgery [CONS] Routine Consulting Provider: Isael Galdamez Reason for Consult: Left intertrochanteric hip fracture s/p fall Time Notified: 23:26 Call Completed: No 07/20/18 15:31 Consult to Occupational Therapy [CONS] Routine Comment: Evaluate, develop and implement POC Reason for Consult: post hip surgery Does patient have active BEDREST order?: No Is patient medically & hemodynamically stable?: Yes Consult to Orthopedic Navigator [CONS] [CONS] Routine Consult to Physical Therapy [CONS] Routine Comment: Evaluate, develop and implement POC Reason for Consult: post hip surgery Does patient have active BEDREST order?: No Is patient medically & hemodynamically stable?: Yes RT Post Op Consult [CONS] Routine - Constitutional Vitals: Temp Pulse Resp BP Pulse Ox 97.5 F L 64 20 145/55 97 07/25/18 06:44 07/25/18 06:44 07/25/18 06:44 07/25/18 06:44 07/25/18 06:44 General appearance: Present: cooperative, no acute distress Exam: See below - Head Head exam: Present: atraumatic, normal inspection - Eye Eye exam: Present: normal appearance. Absent: conjunctival injection - ENT ENT exam: Present: mucous membranes moist - Respiratory Respiratory exam: Present: CTAB. Absent: respiratory distress, wheezes - Cardiovascular Cardiovascular exam: Present: RRR, +S1, +S2 - GI/Abdominal GI/Abdominal exam: Present: soft. Absent: distended, rebound, rigid, tenderness - Extremities Exam Extremities exam: Present: normal capillary refill. Absent: tenderness Additional comments: surgical dressing clean and dry L extrmeity - Neurological Exam Neurological exam: Present: alert Additional comments: deaf. Must write questions. Nods head when asking if she is doing well. - Psychiatric Psychiatric exam: Absent: agitated - Skin Skin exam: Present: dry, warm - Patient Status Disposition: Transfer SNF Condition: Fair Functional capacity at discharge: wheelchair bound Overall status at discharge: patient is progressing back to baseline - Discharge Instructions Follow Up With: NONE,PCP [Primary Care Provider] - Additional Instructions: INTERMEDIATE DISCHARGE INSTRUCTIONS Dr. Galdamez PROCEDURE PERFORMED Reduction and fixation of left hip. Incision care -Daily dressing changes to the left hip with dry gauze and either paper tape or medipore tape. -Avoid soaking wound in water (no hot tubs, bathtubs, swimming pools). -May shower after 2 weeks from surgery date. Carefully wash incision with soap and water. Gently pat it dry. Don't rub the incision, or apply creams or lotions. Sit on a shower stool when showering to keep from falling. Weight bearing status -Weightbearing as tolerated to the bilateral lower extremities. Medications -Pain medication per the discharging medical doctor -Enteric coated aspirin 325 mg by mouth twice per day for 28 days from the date of the surgery. Other -Knee high ACE hose 23 hours per day -Consult physical and occupational therapy for mobilization. -Up to chair with assistance at least twice per day. -Follow up with your primary care physician to discuss testing for bone mineral density. Follow-up with Dr. Galdamez at the office 2 weeks from the surgery date for a post operative evaluation. Call the office at [phone] to schedule appointment. - Diet and Activity Activity: as per physical therapy Diet: other (ensure BID), regular diet Addendum entered and electronically signed by Rosina Reese 07/26/18 16:22: Addendum to discharge summary/hospital stay: Family visited the patient yesterday and was concerned about her neurologic status and they states she was not at baseline. They states she was able to drive prior to her hospitalization. She is deaf. Patient had additional labs drawn including B12, folate, ammonia level, TSH, lactate which were all normal. She did have an elevated AST which is new for her however likely due to being on Rocephin. She had a CT head/brain without contrast on 07/25/18 that showed no acute intracranial abnormality, however there is diffuse cerebral volume loss and mild chronic small vessel ischemic changes that are unchanged from prior examination. Neurology consult was also obtained and evaluated the patient yesterday and today. Patient's delirium is likely multifactorial with recent UTI, anesthesia, uremia and acute on chronic renal disease, less likely a [employer] infection. Patient also has underlying dementia most likely. Their recommendations was the patient should no longer be driving and would likely benefit from LTAC placement. They did not recommend any further imaging or testing at this time. Patient was re-evaluated today. Her mentation is improved and she was more interactive and responded to questions when asked on the white board. She also had a repeat hip xray that showed anatomic alignment status post ORIF of the left femoral neck. Discussed with [facility] labor representative. Patient has been accepted and they can arrange transport tonight or tomorrow. Patient finished a course of IV Rocephin, 5 days for her UTI. She does not need to be discharged on antibiotics. Patient is medically stable for discharge to [facility] with follow up with orthopedic surgery for post operative evaluation. Addendum entered and electronically signed by Ej Ross 07/28/18 16:23: I examined this patient and my medical decision-making was reviewed with the Resident Physician. I agree with the documented discharge as above. Patient was seen on 07/26/2018 Admitted with left hip fracture and had nailing done. Post op had encephalopat hy. Had a UTI and was on abx. Had neurology see her and thought it was mostly metabolic. Symptoms started improving prior to d/c to rehab. GEN: NAD CVS: RRR. S1, S2, No m/r/g RESP: CTAB ABD: Soft, NT, ND, +BS EXT: No edema. 2+ DP. No rashes NEURO: Nonfocal. A/Ox2
--- NOTE | 2018-07-25 11:55 | Physician Discharge Referral ---
Addendum entered and electronically signed by Rosina Reese 07/26/18 17:41: Addendum to medications. Patient should take Propranolol HCL 40mg PO daily NOT 60mg PO daily. Original Note: [facility] Referral Info Transfer To: [place] [facility] Provider in Charge after Transfer: PCP Institutional Level of Care: Skilled - Diagnosis (1) Intertrochanteric fracture of left hip Priority: Primary Status: Acute (2) UTI (urinary tract infection) Priority: Secondary Status: Resolved (3) Acute delirium Priority: Secondary Status: Resolved (4) Anemia Priority: Secondary Status: Chronic (5) Zhxcu-ao-kepmhqg kidney injury Priority: Secondary Status: Acute (6) Chronic diastolic (congestive) heart failure Priority: Secondary Status: Chronic Prognosis: Good Aware of Diagnosis: Patient, Family Aware of Prognosis: Patient, Family - Transfer Medications Prescriptions: RX: OXYCODONE Oral CONC [Oxycodone Oral Conc] 5 mg SL Q4HR PRN 2 Days #7 oral.syg PRN Reason: Pain Home Medications: RX: Atorvastatin Calcium [Lipitor] 20 mg PO HS 09/02/15 [History] RX: Clopidogrel [Plavix] 75 mg PO DAILY 09/02/15 [History] RX: Furosemide [Lasix] 40 mg PO DAILY 09/02/15 [History] RX: Isosorbide MONOnitrate (24 HR) [Imdur] 120 mg PO DAILY 09/02/15 [History] RX: Ranolazine [Ranexa] 1,000 mg PO BID 09/02/15 [History] RX: Raloxifene [Evista] 50 mg PO DAILY 01/24/16 [History] RX: Citalopram Hydrobromide [Citalopram HBr] 10 mg PO DAILY 04/18/17 [History] RX: Ferrous Sulfate [Iron] 325 mg PO DAILY 03/23/18 [History] RX: Cyanocobalamin (B-12) [Vitamin B12] 2,000 mcg PO DAILY 07/22/18 [History] RX: Ergocalciferol (VITAMIN D2) [Vitamin D2] 50,000 unit PO MO 07/22/18 [History] RX: Propranolol HCl 60 mg PO DAILY 07/22/18 [History] RX: hydrALAZINE [HydrALAZINE] 10 mg PO TID 07/22/18 [History] RX: OXYCODONE Oral CONC [Oxycodone Oral Conc] 5 mg SL Q4HR PRN 2 Days #7 oral.syg 07/25/18 [Rx] RX: hydrALAZINE [HydrALAZINE] 10 mg PO Q6HR tablet 07/25/18 [Rx] RX: Aspirin 325 mg PO BID 28 Days #56 tablet 07/26/18 [Rx] Allergies/Adverse Reactions: Allergy/AdvReac Type Severity Reaction Status Date / Time No Known Allergies Allergy Verified 07/12/18 15:36 - Respiratory Orders Smoking Cessation: Smoking cessation has been advised. For more information, call the [place] Tobacco Quit Line at 4-986-EICH-NOW. - Ancillary Orders May use pressure relief devices daily prn - Advance Directives Code Status: Full Code - Mobility Orders Other (Per PT) - Rehabiliation Orders Rehab Potential: Fair Rehab Orders: Evaluation for Physical Therapy, Evaluation for Occupational Therapy - Treatments Skin tear care topically daily PRN per policy - Diet Orders Regular House Supplement per Dietary: ensure BID CERTIFICATION: I certify that the transfer of the above named patient to an Extended Care Facility is necessary for the continuing treatment of the diagnosis listed. The above information is true and accurate reflection of patient's current condition. Confidential - Redisclosure prohibited without a patient's written consent.
--- NOTE | 2018-07-25 12:13 | Event Note ---
Date of Encounter: 07/25/18 Time of Encounter: 12:10 Patient was seen and examined. I agree with the progress note as written by the resident physician. Patient is not agitated and is calm but remains confused. Patient's family states this isnt close to her baseline at all. Pain is adequately controlled. Afebrile. On room air. Patient is here with a left intertrochanteric hip fracture. underwent left hip nailing 07/20. Also UTI diagnosed and started on ceftriaxone. The patient came in to us with a history of CHF, coronary disease, hyperlipidemia, hypertension, PAD, CKD, as a transfer from [place] due to a fall. This sounds mechanical in nature. Was found to have a left intertrochanteric hip fracture. GEN: NAD CVS: RRR, S1, S2, systolic murmur throughout 08/17. RESP: CTAB ABD: Soft, NT, ND, +BS EXT: No edema. 2+ DP. No rashes. NEURO: A/Ox0. Moves extremities spontaneously Haldol IV 2 mg Q4hrs PRN ordered but has not used it Pain meds dose decreased and pain is well controlled Continues to be encephalopathic. Will repeat a CT head, check TSH, B12, Folate, Ammonia levels. c/s neurology c/w ceftriaxone for now. cultures neg to date Hgb 8.0 today. Needed 1 unit PRBCs while here SASHA on CKD improved. IV fluids stopped. Monitor for signs of volume overload. EF 60% and mild diastolic dysfunction. Has severe . Continue home medication On ASA 325 mg BID per ortho for DVT pprx
--- NOTE | 2018-07-25 15:05 | Event Note ---
Date of Encounter: 07/25/18 Time of Encounter: 14:00 Family visited the patient and state this is not her baseline. They state prior to her hospitalization she was able to drive. She is not communicating as she normally does. Nurse does not note any acute changes. On focal neurologic examination. CT head without contrast was obtained that shows no acute intracranial abnormality. There is diffuse cerebral volume loss and mild chronic small vessel ischemia changes that are unchanged. Patient will have neurology consultation as well given the encephalopathy. This is of unknown etiology. Medication list has been reviewed. According to the RN, she has not been receiving her oxycodone. We will obtain CBC, BMP, hepatic panel, ammonia level, B12, folic acid, TSH in the morning labs to further evaluate.
--- NOTE | 2018-07-25 15:23 | Internal Med Progress Note ---
Hospitalist Progress Note - Encounter Date of Encounter: 07/25/18 Time of Encounter: 15:25 - Subjective Interval History: Patient was seen and examined. Patient is not agitated and is calm but remains confused. Patient 's family states this isn't close to her baseline at all. Pain is adequately controlled. Afebrile. On room air. Patient is here with a left intertrochanteric hip fracture. underwent left hip nailing 07/20. Also UTI diagnosed and started on ceftriaxone. The patient came in to us with a history of CHF, coronary disease, hyperlipidemia, hypertension, PAD, CKD, as a transfer from [place] due to a fall. This sounds mechanical in nature. Was found to have a left intertrochanteric hip fracture. P - Exam Vitals: Temp Pulse Resp BP Pulse Ox 98.1 F 65 16 104/59 93 07/25/18 11:01 07/25/18 11:01 07/25/18 11:01 07/25/18 11:01 07/25/18 11:01 Exam: GEN: NAD CVS: RRR, S1, S2, systolic murmur throughout 08/17. RESP: CTAB ABD: Soft, NT, ND, +BS EXT: No edema. 2+ DP. No rashes. NEURO: A/Ox0. Moves extremities spontaneously - Assessment and Plan (1) Intertrochanteric fracture of left hip Current Visit: No Status: Acute Assessment and Plan: s/p left hip nailing 07/20. c/w post operative care per orthopedics. c/w pain control. PT/OT as tolerated. (2) Ckvqu-hi-sjrphan kidney injury Current Visit: Yes Status: Acute Assessment and Plan: continue to improve. Has chronic kidney disease with creatinine baseline 1.5-2.0. Has been given IV fluids and this was topped given severe . She is on room air. Encourage PO intake (3) Anemia Current Visit: Yes Status: Chronic Assessment and Plan: Acute on chronic. blood loss anemia post op. H/H stable today at 8.0 as yesterday. Was transfused 1 unit 07/22 (4) Acute delirium Current Visit: Yes Status: Resolved Assessment and Plan: Not back to baseline yet. Check CT head. Check B12, folate, TSH, Ammonia, LFTs. c/s neuro. Has not been really needing so much pain meds. Has a UTI but cultures negative. Maybe just needs more time. (5) UTI (urinary tract infection) Current Visit: Yes Status: Resolved Assessment and Plan: Urinalysis significant for large leukocyte esterse, TNTC WBCs, and few squamous epithelial cells. Small blood and bilirubin also present, with 15-30 RBC noted. On IV rocephin. cx neg to date. (6) Chronic diastolic (congestive) heart failure Current Visit: Yes Status: Chronic Assessment and Plan: Repeat echocardiogram demonstrated maintained LVEF of 60%. - Continue home medications of aspirin, statin, imdur, and ranexa - Close clinical monitoring for signs of fluid overloadphysical (7) DVT prophylaxis Current Visit: Yes Status: Acute Assessment and Plan: - Aspirin 350mg BID - Time Spent with Patient Total time spent is greater than 50% in coordination of care (as documented) at patient's floor/unit and/or counseling patient: Internal Medicine: Result - Labs CBC & Chem 7: 07/25/18 03:24 07/25/18 03:24 Labs: Short CBC 07/25/18 Range/Units 03:24 WBC 9.9 (4.3-11.1) K/mcL Hgb 8.0 L (11.5-15.4) g/dL Hct 24.4 L (35.3-44.9) % Plt Count 102 L (140-400) K/mcL Neutrophils # 8.0 (1.6-8.9) K/mcL BMP 07/25/18 03:24 Sodium 136 Potassium 4.9 Chloride 107 Carbon Dioxide 17 L BUN 74 H Creatinine 2.04 H Glucose 95 Calcium 8.4 L - ABG Interpretation ABG results: PT/INR, D-dimer PT 12.7 Seconds (9.4-12.1) H 07/20/18 04:25 - Impressions Impressions Head CT 07/25/18 12:17 IMPRESSION: 1. No acute intracranial process identified. 2. Diffuse cerebral volume loss and mild chronic small vessel ischemic changes, unchanged. D/ / Nilson Ayala MD / Nilson Ayala MD Interpreting Provider: Nilson Ayala MD Consult Discharge Plan - Plan Additional Instructions: LONG TERM DISCHARGE INSTRUCTIONS Dr. Galdamez PROCEDURE PERFORMED Reduction and fixation of left hip. Incision care -Daily dressing changes to the left hip with dry gauze and either paper tape or medipore tape. -Avoid soaking wound in water (no hot tubs, bathtubs, swimming pools). -May shower after 2 weeks from surgery date. Carefully wash incision with soap and water. Gently pat it dry. Don't rub the incision, or apply creams or lotions. Sit on a shower stool when showering to keep from falling. Weight bearing status -Weightbearing as tolerated to the bilateral lower extremities. Medications -Pain medication per the discharging medical doctor -Enteric coated aspirin 325 mg by mouth twice per day for 28 days from the date of the surgery. Other -Knee high ACE hose 23 hours per day -Consult physical and occupational therapy for mobilization. -Up to chair with assistance at least twice per day. -Follow up with your primary care physician to discuss testing for bone mineral density. Follow-up with Dr. Galdamez at the office 2 weeks from the surgery date for a post operative evaluation. Call the office at [phone] to schedule appointment. Referrals: NONE,PCP [Primary Care Provider] - Prescriptions: OXYCODONE Oral CONC [Oxycodone Oral Conc] 5 mg SL Q4HR PRN 2 Days #7 oral.syg PRN Reason: Pain (1) Intertrochanteric fracture of left hip Qualifiers: Encounter type: initial encounter Fracture type: closed Fracture alignment: displaced Qualified Code(s): S72.142A - Displaced intertrochanteric fracture of left femur, initial encounter for closed fracture (3) Anemia Qualifiers: Anemia type: unspecified type Qualified Code(s): D64.9 - Anemia, unspecified (5) UTI (urinary tract infection) Qualifiers: Urinary tract infection type: site unspecified Hematuria presence: with hematuria Qualified Code(s): N39.0 - Urinary tract infection, site not specified; R31.9 - Hematuria, unspecified
--- NOTE | 2018-07-25 15:46 | Neurology - Consult Note ---
Addendum entered and electronically signed by Arturo Meza 07/25/18 17:16: PLAN: lactate pending, ammonia pending, LFTs pending Consider obtaining blood cultures to rule out additional infective sources Original Note: <SusanaArturo Nancy - Last Filed: 07/25/18 16:06> Date of Encounter: 07/25/18 Time of Encounter: 15:44 Assessment and Plan (1) Encephalopathy Current Visit: Yes Status: Acute Neurology consulted for agitation and delirium. she presented s/p fall with hip fracture and is POD #5 IM nailing. She has been having confusion, agitation and delirium since. Per my exam this afternoon she appears to be confused. She is having loose associations and is unable to follow commands. She appears to have underlying dementia as well. However, due to her mental status my neurological exam is limited. I do not see any obvious focal or lateralizing neurological deficits. She does resist head and neck movement but she does not appear rigid; stiffness and resistance can be seen in dementia patients which I suspect she has. I do not feel at this time that her mental status changes are of a neurological cause. I believe the recent for delirium is multifactorial with recent anesthesia, UTI on admission, uremia and acute kidney injury. These symptoms should improve over time and I would suspect that she should be able to progress back to baseline status. At this time I do not recommend any further neurological workup.deferred to the IM team to manage the uremia, acute kidney injury and urinary tract infection. History of Present Illness Chief complaint: agitation, confusion, delirium; rule out neurological causes HPI: Ms. Corrales is a 87 year old female with a PMH of CHF, HLD, PAD, HTN, CAD, CKD. She presents due to falls resulting in left intertrochanteric hip fracture. She is S/P left hip nailing POD #5. Neurology has been consulted with concerns for agitation and confusion. At the time of my assessment there is no family present and I am unable to obtain an adequate review of systems as the patient is confused and appears to have underlying dementia. Per the internal medicine physician reports the patient is having aggressive behavior and confusion. There are concerns as to whether or not there may be a neurological cause for these symptoms. A CT of the head was obtained and negative for an acute intracranial abnormality. Of note, the patient did have a urinary tract infection and has recently received anesthesia which could be contributing to acute delirium. Also, she does have uremia with a BUN of 74 and an acute kidney injury with an serum creatinine of 2.04. when I rounded on the patient this morning she appears to have confusion and a loose association. She also appears to have underlying dementia. However, she does not appear to be agitated or aggressive at this time. Given that she is not obtunded and does not have any focal neurological findings I do not suspect there it is an infectious cause of the delirium. Furthermore, I do not feel that there is a neurological cause of her symptoms. These are most likely multifactorial with recent anesthesia, urinary tract infection, uremia and acute kidney injury. Past Med Surg Social Fam HX - Past Medical History Medical history: arthritis, CHF, coronary artery disease, hyperlipidemia, hypertension, myocardial infarction, peripheral artery disease, renal disease Psychiatric history: no psych history - Past Surgical History Surgical History: carotid endarterectomy, coronary bypass (CABG), hysterectomy, orthopedic, other, other Additional surgical history: Triple bypass, Rt knee surgery, Back surgery, Lt nephrectomy, Bilateral carpal tunnel release, T&A - Social History Smoking Status: Never smoker Smokeless Tobacco Status: No Alcohol use: unknown Drug use: none - Family History Father Living Status: Hx Family Cardiac Disorders: Yes (CAD) Mother Hx Family Cardiac Disorders: Yes (hypertension) Sister Hx Family Cardiac Disorders: Yes (CAD) Hx Family Endocrine Disorder: Yes (diabetes) Brother Living Status: Hx Family Cardiac Disorders: Yes (CAD) Medications and Allergies Aspirin 325 mg PO DAILY 09/02/15 [History] Atorvastatin Calcium [Lipitor] 20 mg PO HS 09/02/15 [History] Clopidogrel [Plavix] 75 mg PO DAILY 09/02/15 [History] Furosemide [Lasix] 40 mg PO DAILY 09/02/15 [History] Isosorbide MONOnitrate (24 HR) [Imdur] 120 mg PO DAILY 09/02/15 [History] Ranolazine [Ranexa] 1,000 mg PO BID 09/02/15 [History] Raloxifene [Evista] 50 mg PO DAILY 01/24/16 [History] Citalopram Hydrobromide [Citalopram HBr] 10 mg PO DAILY 04/18/17 [History] Ferrous Sulfate [Iron] 325 mg PO DAILY 03/23/18 [History] Cyanocobalamin (B-12) [Vitamin B12] 2,000 mcg PO DAILY 07/22/18 [History] Ergocalciferol (VITAMIN D2) [Vitamin D2] 50,000 unit PO MO 07/22/18 [History] Propranolol HCl 60 mg PO DAILY 07/22/18 [History] hydrALAZINE [HydrALAZINE] 10 mg PO TID 07/22/18 [History] OXYCODONE Oral CONC [Oxycodone Oral Conc] 5 mg SL Q4HR PRN 2 Days #7 oral.syg 07/25/18 [Rx] hydrALAZINE [HydrALAZINE] 10 mg PO Q6HR tablet 07/25/18 [Rx] Allergy/AdvReac Type Severity Reaction Status Date / Time No Known Allergies Allergy Verified 07/12/18 15:36 ROS unobtainable: due to mental status All Systems: The remainder of the systems were reviewed and are negative Physical Examination - Vital Signs Vital Signs: Initial Vital Signs Temp Pulse Resp BP Pulse Ox 97.9 F 64 20 115/50 94 07/19/18 17:01 07/19/18 17:01 07/19/18 17:01 07/19/18 17:01 07/19/18 17:01 - Exam Exam: Examination: General Examination: *CONSTITUTIONAL: ill appearing, elderly female. Lethargic and confused. She does not appear to be in distress *EYES: pupils equal, round, reactive to light and accommodation, conjunctiva clear without masses *CARDIOVASCULAR no peripheral edema, distal temperature normal, dorsalis pedis pulses normal. Musculoskeletal: *GAIT AND STATION did not assess gait; she is s/p IM nailing *ASSESSMENT OF MUSCLE STRENGTH IN THE UPPER AND LOWER EXTREMITIES spontaneous and purposeful movement of b/l upper extremities. Does not follow commands; unable to assess lower extremity strength and ROM. *MUSCLE TONE IN THE UPPER AND LOWER EXTREMITIES normal. No abnormal movements, fasciculations or atrophy identified. Neurological: *ORIENTATION to time, person, situation, and place *RECURRENT AND REMOTE MEMORY *ATTENTION AND CONCENTRATION poor concentration, episodes of inattention. *LANGUAGE FUNCTION no significant aphasia or dysarthia was noted. *FUND OF KNOWLEDGE aware of current events, past history, vocabulary *MENTAL attention span and concentration normal. *CN II optic fundi were normal, no papilledema noted. *CN III,IV, PERRLA extraocular eye movements were full, no nystagmus and no ptosis noted. *CN V shows normal sensation and jaw opens symmetrically. *CN VII shows normal facial movement symmetrically, upper and lower bilaterally. *CN VIII She is very hard of hearing. *CN IX,,X palate elevated symmetrically and normal gag reflex was noted. *CN XI normal strength in the sternocleidomastoid muscles, resists head turning *CN XII tongue protruded in the midline, with normal strength and movement. *SENSORY EXAMINATION sensory intact, responds to painful stimuli *REFLEXES: deep tendon reflexes were normal and symmetrical BUE 2/4, BLE diminished b/l, no pathological reflexes were noted. *CEREBELLAR TESTING normal finger to nose, heel/knee/hirsch, and tandem walk. Results - Laboratory Findings CBC and BMP: 07/25/18 03:24 07/25/18 03:24 Abnormal lab findings: Abnormal lab results RBC 2.54 M/mcL (3.82-4.97) L 07/25/18 03:24 Hgb 8.0 g/dL (11.5-15.4) L 07/25/18 03:24 Hct 24.4 % (35.3-44.9) L 07/25/18 03:24 RDW 15.3 % (11.5-14.5) H 07/25/18 03:24 Plt Count 102 K/mcL (140-400) L 07/25/18 03:24 Nucleated RBCs/100 WBC 0.6 /100 WBC (0) H 07/25/18 03:24 PT 12.7 Seconds (9.4-12.1) H 07/20/18 04:25 Carbon Dioxide 17 mEq/L (23-29) L 07/25/18 03:24 BUN 74 mg/dL (8-23) H 07/25/18 03:24 Creatinine 2.04 mg/dL (0.60-1.20) H 07/25/18 03:24 Est GFR ( Amer) 28 (> 60) L 07/25/18 03:24 Est GFR (Non-Af Amer) 23 (> 60) L 07/25/18 03:24 BUN/Creatinine Ratio 36 (6-26) H 07/25/18 03:24 Calculated Osmolality 304 (280-300) H 07/25/18 03:24 Calcium 8.4 mg/dL (8.6-10.3) L 07/25/18 03:24 Urine Clarity Cloudy (Clear) A 07/20/18 18:15 Urine Protein 30 mg/dL (Neg-Trace) H 07/20/18 18:15 Urine Blood Small (Negative) H 07/20/18 18:15 Urine Bilirubin Small (Negative) H 07/20/18 18:15 Ur Leukocyte Esterase Large (Negative) H 07/20/18 18:15 Urine Microscopic RBC 15-30 per hpf (0-3) H 07/20/18 18:15 Urine Microscopic WBC TNTC per hpf (0-3) H 07/20/18 18:15 Ur Culture Indicated? YES (NO) A 07/20/18 18:15 Consult Discharge Plan - Plan Additional Instructions: [facility] DISCHARGE INSTRUCTIONS Dr. Galdamez PROCEDURE PERFORMED Reduction and fixation of left hip. Incision care -Daily dressing changes to the left hip with dry gauze and either paper tape or medipore tape. -Avoid soaking wound in water (no hot tubs, bathtubs, swimming pools). -May shower after 2 weeks from surgery date. Carefully wash incision with soap and water. Gently pat it dry. Don't rub the incision, or apply creams or lotions. Sit on a shower stool when showering to keep from falling. Weight bearing status -Weightbearing as tolerated to the bilateral lower extremities. Medications -Pain medication per the discharging medical doctor -Enteric coated aspirin 325 mg by mouth twice per day for 28 days from the date of the surgery. Other -Knee high ACE hose 23 hours per day -Consult physical and occupational therapy for mobilization. -Up to chair with assistance at least twice per day. -Follow up with your primary care physician to discuss testing for bone mineral density. Follow-up with Dr. Galdamez at the office 2 weeks from the surgery date for a post operative evaluation. Call the office at [phone] to schedule appointment. Referrals: NONE,PCP [Primary Care Provider] - Prescriptions: OXYCODONE Oral CONC [Oxycodone Oral Conc] 5 mg SL Q4HR PRN 2 Days #7 oral.syg PRN Reason: Pain <Paul Tay - Last Filed: 07/25/18 17:50> Date of Encounter: 07/25/18 Assessment and Plan (1) Encephalopathy Current Visit: Yes Status: Acute I agree as stated above. There is no evidence reflective of a primary central nervous system etiology to explain her confusion. She has good strength and is able to microphone operator my arm to pull himself up in the bed with both upper extremities symmetrically. He is verbal, at this time she is awake and alert although confused. She is not following commands. I suspect that we are dealing with combination of delirium with superimposed dementia. I agree with the lab workup as stated above. I will reevaluate her tomorrow. I see no evidence of brain central nervous system infectious process. I see no benefit in lumbar puncture at this time. History of Present Illness HPI: The chart was reviewed, the patient was seen and examined along with the COMPLIANCE NURSE. I agree with his assessment of the history of present illness as stated above. I did review the CT scan of the head. No evidence of acute infarct is identified. ROS unobtainable: due to mental status All Systems: The remainder of the systems were reviewed and are negative Physical Examination - Vital Signs Vital Signs: Initial Vital Signs Temp Pulse Resp BP Pulse Ox 97.9 F 64 20 115/50 94 07/19/18 17:01 07/19/18 17:01 07/19/18 17:01 07/19/18 17:01 07/19/18 17:01 - Exam Exam: Gait was not assessed. Otherwise I am in agreement with the neurologic examination is documented above. Results - Laboratory Findings CBC and BMP: 07/25/18 03:24 07/25/18 03:24 Abnormal lab findings: Abnormal lab results RBC 2.54 M/mcL (3.82-4.97) L 07/25/18 03:24 Hgb 8.0 g/dL (11.5-15.4) L 07/25/18 03:24 Hct 24.4 % (35.3-44.9) L 07/25/18 03:24 RDW 15.3 % (11.5-14.5) H 07/25/18 03:24 Plt Count 102 K/mcL (140-400) L 07/25/18 03:24 Nucleated RBCs/100 WBC 0.6 /100 WBC (0) H 07/25/18 03:24 PT 12.7 Seconds (9.4-12.1) H 07/20/18 04:25 Carbon Dioxide 17 mEq/L (23-29) L 07/25/18 03:24 BUN 74 mg/dL (8-23) H 07/25/18 03:24 Creatinine 2.04 mg/dL (0.60-1.20) H 07/25/18 03:24 Est GFR ( Amer) 28 (> 60) L 07/25/18 03:24 Est GFR (Non-Af Amer) 23 (> 60) L 07/25/18 03:24 BUN/Creatinine Ratio 36 (6-26) H 07/25/18 03:24 Calculated Osmolality 304 (280-300) H 07/25/18 03:24 Calcium 8.4 mg/dL (8.6-10.3) L 07/25/18 03:24 Urine Clarity Cloudy (Clear) A 07/20/18 18:15 Urine Protein 30 mg/dL (Neg-Trace) H 07/20/18 18:15 Urine Blood Small (Negative) H 07/20/18 18:15 Urine Bilirubin Small (Negative) H 07/20/18 18:15 Ur Leukocyte Esterase Large (Negative) H 07/20/18 18:15 Urine Microscopic RBC 15-30 per hpf (0-3) H 07/20/18 18:15 Urine Microscopic WBC TNTC per hpf (0-3) H 07/20/18 18:15 Ur Culture Indicated? YES (NO) A 07/20/18 18:15
--- NOTE | 2018-07-25 17:24 | Orthopedics Progress Note ---
Date of Encounter: 07/25/18 Time of Encounter: 14:00 - Assessment and Plan (1) Intertrochanteric fracture of left hip Current Visit: No Status: Acute Qualifiers: Encounter type: initial encounter Fracture type: closed Fracture alignment: displaced Qualified Code(s): S72.142A - Displaced intertrochanteric fracture of left femur, initial encounter for closed fracture Subjective Interval history: S: Moderate confusion O: Afebrile on the vital signs are stable Left hip dressing is changed and there is mild serosanguinous drainage. No deformities Grossly dorsiflex and plantar flex his ankle and toes The foot is well-perfused A: Post left hip nailing P: Resume postoperative care. Orthopedically stable Continue daily dressing changes and therapy when able. Objective Vital signs: Vital Signs Temp Pulse Resp BP Pulse Ox 07/25/18 16:40 97.9 F 71 16 101/57 94 07/25/18 11:01 98.1 F 65 16 104/59 93 07/25/18 06:44 97.5 F L 64 20 145/55 97 07/25/18 06:28 71 124/70 07/25/18 03:35 98.4 F 66 14 122/51 98 07/24/18 23:27 99.1 F 73 18 145/65 97 07/24/18 18:37 98.4 F 68 18 155/57 97 Intake and Output 07/25/18 07/25/18 07/25/18 07:59 15:59 23:59 Intake Total 100 / 100 150 / 150 Balance 100 / 100 150 / 150 Intake: Oral 100 / 100 150 / 150 Other: Meal Lunch Percent of Meal Consumed 10% # Voids 1 Weight 66 kg Patient Weight 07/25/18 23:59 Weight 66 kg - Labs CBC & BMP: 07/25/18 03:24 07/25/18 03:24 Labs: Abnormal lab results RBC 2.54 M/mcL (3.82-4.97) L 07/25/18 03:24 Hgb 8.0 g/dL (11.5-15.4) L 07/25/18 03:24 Hct 24.4 % (35.3-44.9) L 07/25/18 03:24 RDW 15.3 % (11.5-14.5) H 07/25/18 03:24 Plt Count 102 K/mcL (140-400) L 07/25/18 03:24 Nucleated RBCs/100 WBC 0.6 /100 WBC (0) H 07/25/18 03:24 PT 12.7 Seconds (9.4-12.1) H 07/20/18 04:25 Carbon Dioxide 17 mEq/L (23-29) L 07/25/18 03:24 BUN 74 mg/dL (8-23) H 07/25/18 03:24 Creatinine 2.04 mg/dL (0.60-1.20) H 07/25/18 03:24 Est GFR ( Amer) 28 (> 60) L 07/25/18 03:24 Est GFR (Non-Af Amer) 23 (> 60) L 07/25/18 03:24 BUN/Creatinine Ratio 36 (6-26) H 07/25/18 03:24 Calculated Osmolality 304 (280-300) H 07/25/18 03:24 Calcium 8.4 mg/dL (8.6-10.3) L 07/25/18 03:24 Urine Clarity Cloudy (Clear) A 07/20/18 18:15 Urine Protein 30 mg/dL (Neg-Trace) H 07/20/18 18:15 Urine Blood Small (Negative) H 07/20/18 18:15 Urine Bilirubin Small (Negative) H 07/20/18 18:15 Ur Leukocyte Esterase Large (Negative) H 07/20/18 18:15 Urine Microscopic RBC 15-30 per hpf (0-3) H 07/20/18 18:15 Urine Microscopic WBC TNTC per hpf (0-3) H 07/20/18 18:15 Ur Culture Indicated? YES (NO) A 07/20/18 18:15 Consult Discharge Plan - Plan Additional Instructions: [facility] DISCHARGE INSTRUCTIONS Dr. Galdamez PROCEDURE PERFORMED Reduction and fixation of left hip. Incision care -Daily dressing changes to the left hip with dry gauze and either paper tape or medipore tape. -Avoid soaking wound in water (no hot tubs, bathtubs, swimming pools). -May shower after 2 weeks from surgery date. Carefully wash incision with soap and water. Gently pat it dry. Don't rub the incision, or apply creams or lotions. Sit on a shower stool when showering to keep from falling. Weight bearing status -Weightbearing as tolerated to the bilateral lower extremities. Medications -Pain medication per the discharging medical doctor -Enteric coated aspirin 325 mg by mouth twice per day for 28 days from the date of the surgery. Other -Knee high ACE hose 23 hours per day -Consult physical and occupational therapy for mobilization. -Up to chair with assistance at least twice per day. -Follow up with your primary care physician to discuss testing for bone mineral density. Follow-up with Dr. Galdamez at the office 2 weeks from the surgery date for a post operative evaluation. Call the office at [phone] to schedule appointment. Referrals: NONE,PCP [Primary Care Provider] - Prescriptions: OXYCODONE Oral CONC [Oxycodone Oral Conc] 5 mg SL Q4HR PRN 2 Days #7 oral.syg PRN Reason: Pain
[2018-07-26] MEDS: hydrALAZINE 10 MG TABLET PO SCH ×5 (03:05→23:37)
[2018-07-26] MEDS: OXYCODONE Oral CONC 10 MG/0.5 ML ORAL.SYG SL PRN (03:17)
[2018-07-26 05:53] LABS: Basophils % 0.2 %; Eosinophils % 0.1 %; Hematocrit 26.3 % (35.3-44.9); Hemoglobin 8.3 g/dL (11.5-15.4); Immature Granulocytes % 1.8 % (0-4); Lymphocytes # 0.7 K/mcL (0.6-4.6); Lymphocytes % 6.8 %; Mean Corpuscular HGB Conc 31.6 g/dL (31.6-35.5); Mean Corpuscular Hemoglobin 30.7 pg (28.0-33.3); Mean Corpuscular Volume 97.4 fL (83.0-100.0); Monocytes % 9.2 %; Neutrophils # 8.5 K/mcL (1.6-8.9); Nucleated Red Blood Cells 0.8 /100 WBC (0); Platelet Count 108 K/mcL (140-400); Red Cell Distribution Width 15.5 % (11.5-14.5); Segmented Neutrophils % 81.9 %
[2018-07-26 06:21] LABS: Albumin 2.9 g/dL (3.5-5.7); Bilirubin,Direct 0.4 mg/dL (0.0-0.2); Bilirubin,Indirect 0.8 mg/dL (0.0-1.2); Bilirubin,Total 1.2 mg/dL (0.3-1.0); Calcium 9.1 mg/dL (8.6-10.3); Magnesium 2.4 mg/dL (1.6-2.6); Potassium 4.9 mEq/L (3.5-5.1); Total Protein 5.9 g/dL (6.4-8.9)
[2018-07-26 06:29] LABS: Thyroid Stimulating Hormone 4.087 mcIU/mL (0.340-5.600)
[2018-07-26 06:32] LABS: Polychromasia 1+ (Not Present)
[2018-07-26 06:33] LABS: Platelet Estimate Normal (Normal)
[2018-07-26 06:39] LABS: Folate 7.9 ng/mL (3.0-16.0)
[2018-07-26 06:43] LABS: Vitamin B12 > 1500 pg/mL (250-1100)
--- NOTE | 2018-07-26 07:01 | Orthopedics Progress Note ---
Date of Encounter: 07/26/18 Time of Encounter: 06:58 - Assessment and Plan (1) Intertrochanteric fracture of left hip Current Visit: No Status: Acute Qualifiers: Encounter type: initial encounter Fracture type: closed Fracture alignment: displaced Qualified Code(s): S72.142A - Displaced intertrochanteric fracture of left femur, initial encounter for closed fracture Subjective Interval history: S: Continued confusion Was picking at dressing/wound yesterday, and it began to bleed and she saturated a dressing. Instructed nurse to place pressure dressing and Aspirin held last night. Has had little therapy at this point. O: Afebrile on the vital signs are stable Left hip dressing is changed and there is moderate serosanguinous drainage on the dressing. Minimal active bloody drainage. I can gently passively range the hip without significant discomfort Grossly dorsiflex and plantar flex his ankle and toes The foot is well-perfused Hemoglobin stable A: Post left hip nailing P: Resume postoperative care. Resume aspirin tonight for DVT prophylaxis Continue daily dressing changes. Therapy when appropriate. Objective Vital signs: Vital Signs Temp Pulse Resp BP Pulse Ox 07/26/18 06:40 98.5 F 62 16 136/57 98 07/26/18 05:55 97.5 F L 67 17 94/74 94 07/25/18 21:13 97.8 F 95 15 123/75 92 07/25/18 16:40 97.9 F 71 16 101/57 94 07/25/18 11:01 98.1 F 65 16 104/59 93 Intake and Output 07/25/18 07/25/18 07/26/18 15:59 23:59 07:59 Intake Total 150 / 150 Output Total 650 / 650 Balance 150 / 150 -650 / -650 Intake: Oral 150 / 150 Output: Straight Cath 650 / 650 Other: Meal Lunch Percent of Meal Consumed 10% - Labs CBC & BMP: 07/26/18 05:41 07/26/18 05:41 Labs: Abnormal lab results RBC 2.70 M/mcL (3.82-4.97) L 07/26/18 05:41 Hgb 8.3 g/dL (11.5-15.4) L 07/26/18 05:41 Hct 26.3 % (35.3-44.9) L 07/26/18 05:41 RDW 15.5 % (11.5-14.5) H 07/26/18 05:41 Plt Count 108 K/mcL (140-400) L 07/26/18 05:41 Nucleated RBCs/100 WBC 0.8 /100 WBC (0) H 07/26/18 05:41 Polychromasia 1+ (Not Present) A 07/26/18 05:41 PT 12.7 Seconds (9.4-12.1) H 07/20/18 04:25 Carbon Dioxide 17 mEq/L (23-29) L 07/26/18 05:41 BUN 86 mg/dL (8-23) H 07/26/18 05:41 Creatinine 2.16 mg/dL (0.60-1.20) H 07/26/18 05:41 Est GFR ( Amer) 26 (> 60) L 07/26/18 05:41 Est GFR (Non-Af Amer) 22 (> 60) L 07/26/18 05:41 BUN/Creatinine Ratio 40 (6-26) H 07/26/18 05:41 Calculated Osmolality 311 (280-300) H 07/26/18 05:41 Total Bilirubin 1.2 mg/dL (0.3-1.0) H 07/26/18 05:41 Direct Bilirubin 0.4 mg/dL (0.0-0.2) H 07/26/18 05:41 AST 128 Units/L (13-39) H 07/26/18 05:41 Serum Total Protein 5.9 g/dL (6.4-8.9) L 07/26/18 05:41 Albumin 2.9 g/dL (3.5-5.7) L 07/26/18 05:41 Albumin/Globulin Ratio 1.0 (1.1-2.2) L 07/26/18 05:41 Vitamin B12 > 1500 pg/mL (250-1100) H 07/26/18 05:41 Urine Clarity Cloudy (Clear) A 07/20/18 18:15 Urine Protein 30 mg/dL (Neg-Trace) H 07/20/18 18:15 Urine Blood Small (Negative) H 07/20/18 18:15 Urine Bilirubin Small (Negative) H 07/20/18 18:15 Ur Leukocyte Esterase Large (Negative) H 07/20/18 18:15 Urine Microscopic RBC 15-30 per hpf (0-3) H 07/20/18 18:15 Urine Microscopic WBC TNTC per hpf (0-3) H 07/20/18 18:15 Ur Culture Indicated? YES (NO) A 07/20/18 18:15 Consult Discharge Plan - Plan Additional Instructions: USP DISCHARGE INSTRUCTIONS Dr. Galdamez PROCEDURE PERFORMED Reduction and fixation of left hip. Incision care -Daily dressing changes to the left hip with dry gauze and either paper tape or medipore tape. -Avoid soaking wound in water (no hot tubs, bathtubs, swimming pools). -May shower after 2 weeks from surgery date. Carefully wash incision with soap and water. Gently pat it dry. Don't rub the incision, or apply creams or lotions. Sit on a shower stool when showering to keep from falling. Weight bearing status -Weightbearing as tolerated to the bilateral lower extremities. Medications -Pain medication per the discharging medical doctor -Enteric coated aspirin 325 mg by mouth twice per day for 28 days from the date of the surgery. Other -Knee high ACE hose 23 hours per day -Consult physical and occupational therapy for mobilization. -Up to chair with assistance at least twice per day. -Follow up with your primary care physician to discuss testing for bone mineral density. Follow-up with Dr. Galdamez at the office 2 weeks from the surgery date for a post operative evaluation. Call the office at [phone] to schedule appointment. Referrals: NONE,PCP [Primary Care Provider] - Prescriptions: OXYCODONE Oral CONC [Oxycodone Oral Conc] 5 mg SL Q4HR PRN 2 Days #7 oral.syg PRN Reason: Pain
[2018-07-26] MEDS: Isosorbide MONOnitrate (24 HR) 60 MG TAB.ER.24H PO SCH (09:31)
[2018-07-26] MEDS: Cyanocobalamin (B-12) 1,000 MCG TABLET PO SCH (09:32)
[2018-07-26] MEDS: Ranolazine 500 MG TAB.ER.12H PO SCH ×2 (09:32→22:47)
[2018-07-26] MEDS: cefTRIAXone 1,000 MG in Water for inj. (sterile) 20 ML 10 ML IVP SCH (09:33)
--- NOTE | 2018-07-26 09:35 | Neurology Progress Note ---
<Arturo Meza J - Last Filed: 07/26/18 13:07> Date of Encounter: 07/26/18 Time of Encounter: 09:35 Assessment and Plan (1) Encephalopathy Current Visit: Yes Status: Acute Per my exam this morning her mental status continues to improve and she is now alert and awake sitting in bedside chair. She does not appear to be agitated or combative today. She does continue to have confusion. Neurology was consulted to assist in evaluation of delirium. I believe that the delirium was multifactorial with recent UTI, anesthesia, uremia and acute on chronic renal disease. With improvement in her status today is suspect she will continue to improve with time. Again, I did not feel she has a CASE INVESTIGATOR infectious process. I do believe that she has underlying dementia. It is my understanding that the patient lives alone and has been relatively functional and has been driving. I strongly recommend given her mental status that she should no longer be driving. Furthermore the patient would likely benefit from evaluation for possible LTAC placement. Subjective Principal diagnosis: Delirium Interval history: Neurology consulted for confusion and delirium. Patient seen and examined at bedside today. She has had no acute change in condition overnight. Actually, she appears to be more awake and alert today. She does still have confusion but is no longer agitated and is now calm. Eye exam today does not elicit any focal or lateralizing findings. Again, I do suspect that because the delirium is multifactorial. I suspect that she should continue to improve daily. Objective - Constitutional Vitals: Temp Pulse Resp BP Pulse Ox 98.5 F 62 16 136/57 98 07/26/18 06:40 07/26/18 06:40 07/26/18 06:40 07/26/18 06:40 07/26/18 06:40 Exam: xamination: General Examination: *CONSTITUTIONAL: ill appearing, elderly female. She is alert and c onfused and mental status appears to be improving compared to yesterday. She does not appear to be in distress nor is she agitated. *EYES: pupils equal, round, reactive to light and accommodation, conjunctiva clear without masses *CARDIOVASCULAR no peripheral edema Musculoskeletal: *GAIT AND STATION did not assess gait; she is s/p IM nailing. She is sitting upright in the bedside chair with erect posture unassisted without any obvious truncal ataxia. *ASSESSMENT OF MUSCLE STRENGTH IN THE UPPER AND LOWER EXTREMITIES continues to have spontaneous and purposeful movement of b/l upper extremities. Overall her bilateral arms do appear strong and she will pull against my hands. Otherwise, she does not follow commands from; unable to assess lower extremity strength and ROM S/P IM nailing. *MUSCLE TONE IN THE UPPER AND LOWER EXTREMITIES normal. No abnormal movements, fasciculations Neurological: *ORIENTATION patient is disoriented and confused; I suspect an underlying component of dementia *RECURRENT AND REMOTE MEMORY *ATTENTION AND CONCENTRATION continues to have poor concentration, and episodes of inattention. *LANGUAGE FUNCTION no significant aphasia or dysarthia was noted. *FUND OF KNOWLEDGE she is not aware of current events, past history with current altered mental state and possible underlying dementia *MENTAL attention span and concentration are diminished. *CN II optic fundi were normal, no papilledema noted. *CN III,IV, PERRLA extraocular eye movements were full, no nystagmus and no ptosis noted. *CN V shows normal sensation and jaw opens symmetrically. *CN VII shows normal facial movement symmetrically, upper and lower bilaterally. *CN VIII She is very hard of hearing. *CN IX,,X palate elevated symmetrically and normal gag reflex was noted. *CN XI normal strength in the sternocleidomastoid muscles, resists head turning *CN XII tongue protruded in the midline, with normal strength and movement. *SENSORY EXAMINATION sensory intact, she verbalizes displeasure to noxious stimuli *REFLEXES: deep tendon reflexes were normal and symmetrical BUE 2/4, BLE diminished b/l, no pathological reflexes were noted. *CEREBELLAR TESTING no truncal ataxia noted Pain: She is stating she is having discomfort in her left hip however she is unable to elaborate further Results - Laboratory Findings CBC and BMP: 07/26/18 05:41 07/26/18 05:41 Abnormal lab findings: Abnormal lab results RBC 2.70 M/mcL (3.82-4.97) L 07/26/18 05:41 Hgb 8.3 g/dL (11.5-15.4) L 07/26/18 05:41 Hct 26.3 % (35.3-44.9) L 07/26/18 05:41 RDW 15.5 % (11.5-14.5) H 07/26/18 05:41 Plt Count 108 K/mcL (140-400) L 07/26/18 05:41 Nucleated RBCs/100 WBC 0.8 /100 WBC (0) H 07/26/18 05:41 Polychromasia 1+ (Not Present) A 07/26/18 05:41 PT 12.7 Seconds (9.4-12.1) H 07/20/18 04:25 Carbon Dioxide 17 mEq/L (23-29) L 07/26/18 05:41 BUN 86 mg/dL (8-23) H 07/26/18 05:41 Creatinine 2.16 mg/dL (0.60-1.20) H 07/26/18 05:41 Est GFR ( Amer) 26 (> 60) L 07/26/18 05:41 Est GFR (Non-Af Amer) 22 (> 60) L 07/26/18 05:41 BUN/Creatinine Ratio 40 (6-26) H 07/26/18 05:41 Calculated Osmolality 311 (280-300) H 07/26/18 05:41 Total Bilirubin 1.2 mg/dL (0.3-1.0) H 07/26/18 05:41 Direct Bilirubin 0.4 mg/dL (0.0-0.2) H 07/26/18 05:41 AST 128 Units/L (13-39) H 07/26/18 05:41 Serum Total Protein 5.9 g/dL (6.4-8.9) L 07/26/18 05:41 Albumin 2.9 g/dL (3.5-5.7) L 07/26/18 05:41 Albumin/Globulin Ratio 1.0 (1.1-2.2) L 07/26/18 05:41 Vitamin B12 > 1500 pg/mL (250-1100) H 07/26/18 05:41 Urine Clarity Cloudy (Clear) A 07/20/18 18:15 Urine Protein 30 mg/dL (Neg-Trace) H 07/20/18 18:15 Urine Blood Small (Negative) H 07/20/18 18:15 Urine Bilirubin Small (Negative) H 07/20/18 18:15 Ur Leukocyte Esterase Large (Negative) H 07/20/18 18:15 Urine Microscopic RBC 15-30 per hpf (0-3) H 07/20/18 18:15 Urine Microscopic WBC TNTC per hpf (0-3) H 07/20/18 18:15 Ur Culture Indicated? YES (NO) A 07/20/18 18:15 Consult Discharge Plan - Plan Additional Instructions: USP DISCHARGE INSTRUCTIONS Dr. Galdamez PROCEDURE PERFORMED Reduction and fixation of left hip. Incision care -Daily dressing changes to the left hip with dry gauze and either paper tape or medipore tape. -Avoid soaking wound in water (no hot tubs, bathtubs, swimming pools). -May shower after 2 weeks from surgery date. Carefully wash incision with soap and water. Gently pat it dry. Don't rub the incision, or apply creams or lotions. Sit on a shower stool when showering to keep from falling. Weight bearing status -Weightbearing as tolerated to the bilateral lower extremities. Medications -Pain medication per the discharging medical doctor -Enteric coated aspirin 325 mg by mouth twice per day for 28 days from the date of the surgery. Other -Knee high ACE hose 23 hours per day -Consult physical and occupational therapy for mobilization. -Up to chair with assistance at least twice per day. -Follow up with your primary care physician to discuss testing for bone mineral density. Follow-up with Dr. Galdamez at the office 2 weeks from the surgery date for a post operative evaluation. Call the office at [phone] to schedule appointment. Referrals: NONE,PCP [Primary Care Provider] - Prescriptions: OXYCODONE Oral CONC [Oxycodone Oral Conc] 5 mg SL Q4HR PRN 2 Days #7 oral.syg PRN Reason: Pain <Paul Tay - Last Filed: 07/26/18 16:18> Date of Encounter: 07/26/18 Assessment and Plan (1) Encephalopathy Current Visit: Yes Status: Acute Again, I agree with the assessment the HAT PARTS CUTTER MACHINE as stated above. Confusion is multifactorial likely a combination of baseline dementia, superimposed delirium as well as sundowning effect. We will reevaluate your request. Subjective Interval history: The chart was reviewed, the patient was seen and examined. I agree with the assessment as stated above by the HAT PARTS CUTTER MACHINE. Patient remains awake but pleasantly confused. She still not following commands appropriately and does not respond appropriately when asked, name. She still speaking with loose association. However I see no focal or lateralized deficits. I believe that we are dealing with a combination of surgical issues contributing to confusion, along with sundowning effect. No evidence to suspect acute cerebral infarct or any other central nervous system infectious or inflammatory process. Objective - Constitutional Vitals: Temp Pulse Resp BP Pulse Ox 98.3 F 82 16 134/62 93 07/26/18 16:07 07/26/18 16:07 07/26/18 16:07 07/26/18 16:07 07/26/18 16:07 Exam: I agree with the examination documented above by the HAT PARTS CUTTER MACHINE. I did examine the patient independently. Results - Laboratory Findings CBC and BMP: 07/26/18 05:41 07/26/18 05:41 Abnormal lab findings: Abnormal lab results RBC 2.70 M/mcL (3.82-4.97) L 07/26/18 05:41 Hgb 8.3 g/dL (11.5-15.4) L 07/26/18 05:41 Hct 26.3 % (35.3-44.9) L 07/26/18 05:41 RDW 15.5 % (11.5-14.5) H 07/26/18 05:41 Plt Count 108 K/mcL (140-400) L 07/26/18 05:41 Nucleated RBCs/100 WBC 0.8 /100 WBC (0) H 07/26/18 05:41 Polychromasia 1+ (Not Present) A 07/26/18 05:41 PT 12.7 Seconds (9.4-12.1) H 07/20/18 04:25 Carbon Dioxide 17 mEq/L (23-29) L 07/26/18 05:41 BUN 86 mg/dL (8-23) H 07/26/18 05:41 Creatinine 2.16 mg/dL (0.60-1.20) H 07/26/18 05:41 Est GFR ( Amer) 26 (> 60) L 07/26/18 05:41 Est GFR (Non-Af Amer) 22 (> 60) L 07/26/18 05:41 BUN/Creatinine Ratio 40 (6-26) H 07/26/18 05:41 Calculated Osmolality 311 (280-300) H 07/26/18 05:41 Total Bilirubin 1.2 mg/dL (0.3-1.0) H 07/26/18 05:41 Direct Bilirubin 0.4 mg/dL (0.0-0.2) H 07/26/18 05:41 AST 128 Units/L (13-39) H 07/26/18 05:41 Serum Total Protein 5.9 g/dL (6.4-8.9) L 07/26/18 05:41 Albumin 2.9 g/dL (3.5-5.7) L 07/26/18 05:41 Albumin/Globulin Ratio 1.0 (1.1-2.2) L 07/26/18 05:41 Vitamin B12 > 1500 pg/mL (250-1100) H 07/26/18 05:41 Urine Clarity Cloudy (Clear) A 07/20/18 18:15 Urine Protein 30 mg/dL (Neg-Trace) H 07/20/18 18:15 Urine Blood Small (Negative) H 07/20/18 18:15 Urine Bilirubin Small (Negative) H 07/20/18 18:15 Ur Leukocyte Esterase Large (Negative) H 07/20/18 18:15 Urine Microscopic RBC 15-30 per hpf (0-3) H 07/20/18 18:15 Urine Microscopic WBC TNTC per hpf (0-3) H 07/20/18 18:15 Ur Culture Indicated? YES (NO) A 07/20/18 18:15
--- NOTE | 2018-07-26 11:17 | Event Note ---
Date of Encounter: 07/26/18 Time of Encounter: 11:14 Patient was seen and examined. I agree with the progress note as written by the resident physician. Patient is much more awake today. She answers some questions. She was able to tell me her name and told me she cant drive anymore because she had a hip surgery. She is not agitated and is calm but remains confused. Neurology saw her for confusion yesterday. Afebrile. On room air. Patient is here with a left intertrochanteric hip fracture. underwent left hip nailing 07/20. Also UTI diagnosed and started on ceftriaxone. The patient came in to us with a history of CHF, coronary disease, hyperlipidemia, hypertension, PAD, CKD, as a transfer from [place] due to a fall. This sounds mechanical in nature. Was found to have a left intertrochanteric hip fracture. GEN: NAD CVS: RRR, S1, S2, systolic murmur throughout 08/17. RESP: CTAB ABD: Soft, NT, ND, +BS EXT: No edema. 2+ DP. No rashes. NEURO: A/Ox0. Moves extremities spontaneously confusion is improving it seems. Work up only revealed mildly elevated AST. Unsure what to make of that. Rest of LFTs normal. ??ceftriaxone caused this?? Repeat CT head with nothing acute Appreciate neurology's help Will check LFTs tomorrow Normal TSH, ammonia, B12, folate levels Haldol IV 2 mg Q4hrs PRN ordered but has not used it Pain meds dose decreased and pain is well controlled Finished 7 days of ceftriaxone. Hgb 8.4 today. Needed 1 unit PRBCs while here SASHA on CKD stable. IV fluids stopped. Monitor for signs of volume overload. EF 60% and mild diastolic dysfunction. Has severe . Continue home medication On ASA 325 mg BID per ortho for DVT pprx
--- NOTE | 2018-07-26 15:52 | Orthopedics Progress Note ---
Date of Encounter: 07/26/18 Time of Encounter: 14:30 - Assessment and Plan (1) Intertrochanteric fracture of left hip Current Visit: No Status: Acute Qualifiers: Encounter type: initial encounter Fracture type: closed Fracture alignment: displaced Qualified Code(s): S72.142A - Displaced intertrochanteric fracture of left femur, initial encounter for closed fracture Subjective Principal diagnosis: Delirium Interval history: S: Improved mentation Sitting up in chair with no new complaints O: Afebrile on the vital signs are stable Outside of left hip dressing clean and dry. Changed. Mild ss drainage on the inside of dressing, significantly improved No active drainage from wounds which are clean, dry, and intact. I can gently passively range the hip without significant discomfort The foot is well-perfused Xray of left hip shows good alignment without change compared to intraoperative fluoro A: Post left hip nailing P: Resume postoperative care. Resume aspirin tonight for DVT prophylaxis Continue daily dressing changes. Therapy when appropriate. Objective Vital signs: Vital Signs Temp Pulse Resp BP Pulse Ox 07/26/18 12:24 97.5 F L 69 15 95 07/26/18 06:40 98.5 F 62 16 136/57 98 07/26/18 05:55 97.5 F L 67 17 94/74 94 07/25/18 21:13 97.8 F 95 15 123/75 92 07/25/18 16:40 97.9 F 71 16 101/57 94 Intake and Output 07/25/18 07/26/18 07/26/18 23:59 07:59 15:59 Intake Total 460 / 460 Output Total 650 / 650 Balance -650 / -650 460 / 460 Intake: Oral 460 / 460 Output: Straight Cath 650 / 650 Other: Meal Lunch Percent of Meal Consumed 15% # Voids 2 # Bowel Movements 1 - Labs CBC & BMP: 07/26/18 05:41 07/26/18 05:41 Labs: Abnormal lab results RBC 2.70 M/mcL (3.82-4.97) L 07/26/18 05:41 Hgb 8.3 g/dL (11.5-15.4) L 07/26/18 05:41 Hct 26.3 % (35.3-44.9) L 07/26/18 05:41 RDW 15.5 % (11.5-14.5) H 07/26/18 05:41 Plt Count 108 K/mcL (140-400) L 07/26/18 05:41 Nucleated RBCs/100 WBC 0.8 /100 WBC (0) H 07/26/18 05:41 Polychromasia 1+ (Not Present) A 07/26/18 05:41 PT 12.7 Seconds (9.4-12.1) H 07/20/18 04:25 Carbon Dioxide 17 mEq/L (23-29) L 07/26/18 05:41 BUN 86 mg/dL (8-23) H 07/26/18 05:41 Creatinine 2.16 mg/dL (0.60-1.20) H 07/26/18 05:41 Est GFR ( Amer) 26 (> 60) L 07/26/18 05:41 Est GFR (Non-Af Amer) 22 (> 60) L 07/26/18 05:41 BUN/Creatinine Ratio 40 (6-26) H 07/26/18 05:41 Calculated Osmolality 311 (280-300) H 07/26/18 05:41 Total Bilirubin 1.2 mg/dL (0.3-1.0) H 07/26/18 05:41 Direct Bilirubin 0.4 mg/dL (0.0-0.2) H 07/26/18 05:41 AST 128 Units/L (13-39) H 07/26/18 05:41 Serum Total Protein 5.9 g/dL (6.4-8.9) L 07/26/18 05:41 Albumin 2.9 g/dL (3.5-5.7) L 07/26/18 05:41 Albumin/Globulin Ratio 1.0 (1.1-2.2) L 07/26/18 05:41 Vitamin B12 > 1500 pg/mL (250-1100) H 07/26/18 05:41 Urine Clarity Cloudy (Clear) A 07/20/18 18:15 Urine Protein 30 mg/dL (Neg-Trace) H 07/20/18 18:15 Urine Blood Small (Negative) H 07/20/18 18:15 Urine Bilirubin Small (Negative) H 07/20/18 18:15 Ur Leukocyte Esterase Large (Negative) H 07/20/18 18:15 Urine Microscopic RBC 15-30 per hpf (0-3) H 07/20/18 18:15 Urine Microscopic WBC TNTC per hpf (0-3) H 07/20/18 18:15 Ur Culture Indicated? YES (NO) A 07/20/18 18:15 Consult Discharge Plan - Plan Additional Instructions: SHELTER DISCHARGE INSTRUCTIONS Dr. Galdamez PROCEDURE PERFORMED Reduction and fixation of left hip. Incision care -Daily dressing changes to the left hip with dry gauze and either paper tape or medipore tape. -Avoid soaking wound in water (no hot tubs, bathtubs, swimming pools). -May shower after 2 weeks from surgery date. Carefully wash incision with soap and water. Gently pat it dry. Don't rub the incision, or apply creams or lotions. Sit on a shower stool when showering to keep from falling. Weight bearing status -Weightbearing as tolerated to the bilateral lower extremities. Medications -Pain medication per the discharging medical doctor -Enteric coated aspirin 325 mg by mouth twice per day for 28 days from the date of the surgery. Other -Knee high ACE hose 23 hours per day -Consult physical and occupational therapy for mobilization. -Up to chair with assistance at least twice per day. -Follow up with your primary care physician to discuss testing for bone mineral density. Follow-up with Dr. Galdamez at the office 2 weeks from the surgery date for a post operative evaluation. Call the office at [phone] to schedule appointment. Referrals: NONE,PCP [Primary Care Provider] - Prescriptions: OXYCODONE Oral CONC [Oxycodone Oral Conc] 5 mg SL Q4HR PRN 2 Days #7 oral.syg PRN Reason: Pain
--- NOTE | 2018-07-26 17:02 | Internal Med Progress Note ---
Hospitalist Progress Note - Encounter Date of Encounter: 07/26/18 Time of Encounter: 15:20 - Subjective Interval History: Patient is more interactive today. Cooperating with examination. Watching television in bed. States she is doing well. Patient also received a Neurologic consultation evaluation yesterday. Discussed with [facility] event marketing representative at bedside who states patient has been accepted. She has been sitter free >24 hours. She is able to go there tonight or tomorrow morning. - Exam Vitals: Temp Pulse Resp BP Pulse Ox 98.3 F 82 16 134/62 93 07/26/18 16:07 07/26/18 16:07 07/26/18 16:07 07/26/18 16:07 07/26/18 16:07 Exam: Gen Alert, no acute distress Head: normocephalic, atraumatic Eyes: EOMI intact, PERRL, normal conjunctiva ENT: oral mucosa moist Cardiac: RRR, no murmur Respiratory: CTA bilaterally, no wheezing or rhonchi Abdomen: soft, nontender, nondistended Extremities: normal capillary refill, no pedal edema, no calf tenderness, left hip surgical site covered with dry dressing Neuro: strength equal bilaterally Psych: normal mood and affect Skin: warm and dry - Assessment and Plan (1) Intertrochanteric fracture of left hip Current Visit: Yes Status: Acute Assessment and Plan: S/P reduction and fixation. POD#[address] Galdamez, orthopedic surgery. COntinue post op management and daily dressing changes/wound care [facility] Discussed with rep. They state she can go tonight or tomorrow morning Continue post op recommendation per Orthopedic surgery Aspirin 325mg PO BID for 28 days for DVT ppx (2) UTI (urinary tract infection) Current Visit: Yes Status: Resolved Assessment and Plan: 5 days IV Rocephin. Discontinued yesterday. Culture negative for growth. (3) Acute delirium Current Visit: Yes Status: Resolved Assessment and Plan: Neurology consulted. Appreciate their recommendations. CT head with no acute intracranial abnormality. Folate, ammonia level, TSH, lactate normal. B12 elevated secondary to supplementation. AST elevated likely secondary to Rocephin. Nonfocal neurologic examination. Likely multifactorial secondary to recent UTI, anesthesia, acute on chronic renal disease. Likely has underlying dementia. Improved mentation today. No further testing or imaging recommended. (4) Wsbnq-iy-azgtujh kidney injury Current Visit: Yes Status: Acute Assessment and Plan: Stable. Continue to monitor. Avoid nephrotoxins and continue hydration. (5) Anemia Current Visit: Yes Status: Chronic Assessment and Plan: Stable. Likely due to intraoperative losses. Received 2 units pRBCs transfusion (6) Chronic diastolic (congestive) heart failure Current Visit: Yes Status: Chronic Assessment and Plan: Echocardiogram demonstrated maintained LVEF 60% Continue aspirin, statin, imdur, ranexa (7) First degree AV block Current Visit: Yes Status: Acute Assessment and Plan: During admission, patient had heart rate in the 40s. EKG with first degree AV block. Propranolol was decreased from 60mg to 40mg. HR improved. DVT Prophylaxis: ASA 325mg BID - Time Spent with Patient Total time spent is greater than 50% in coordination of care (as documented) at patient's floor/unit and/or counseling patient: Internal Medicine: Result - Labs CBC & Chem 7: 07/26/18 05:41 07/26/18 05:41 Labs: Short CBC 07/26/18 Range/Units 05:41 WBC 10.4 (4.3-11.1) K/mcL Hgb 8.3 L (11.5-15.4) g/dL Hct 26.3 L (35.3-44.9) % Plt Count 108 L (140-400) K/mcL Neutrophils # 8.5 (1.6-8.9) K/mcL BMP 07/26/18 05:41 Sodium 138 Potassium 4.9 Chloride 107 Carbon Dioxide 17 L BUN 86 H Creatinine 2.16 H Glucose 85 Calcium 9.1 Liver Function 07/26/18 Range/Units 05:41 Total Bilirubin 1.2 H (0.3-1.0) mg/dL Direct Bilirubin 0.4 H (0.0-0.2) mg/dL AST 128 H (13-39) Units/L ALT 16 (7-52) Units/L Alkaline Phosphatase 53 (34-104) Units/L Albumin 2.9 L (3.5-5.7) g/dL - ABG Interpretation ABG results: PT/INR, D-dimer PT 12.7 Seconds (9.4-12.1) H 07/20/18 04:25 - Impressions Impressions Hip X-Ray 07/26/18 14:48 IMPRESSION: Anatomic alignment status post ORIF of the left femoral neck D/ / Paul Silva MD / Paul Silva MD Interpreting Provider: Paul Silva MD Consult Discharge Plan - Plan Additional Instructions: CORRECTION DISCHARGE INSTRUCTIONS Dr. Galdamez PROCEDURE PERFORMED Reduction and fixation of left hip. Incision care -Daily dressing changes to the left hip with dry gauze and either paper tape or medipore tape. -Avoid soaking wound in water (no hot tubs, bathtubs, swimming pools). -May shower after 2 weeks from surgery date. Carefully wash incision with soap and water. Gently pat it dry. Don't rub the incision, or apply creams or lotions. Sit on a shower stool when showering to keep from falling. Weight bearing status -Weightbearing as tolerated to the bilateral lower extremities. Medications -Pain medication per the discharging medical doctor -Enteric coated aspirin 325 mg by mouth twice per day for 28 days from the date of the surgery. Other -Knee high ACE hose 23 hours per day -Consult physical and occupational therapy for mobilization. -Up to chair with assistance at least twice per day. -Follow up with your primary care physician to discuss testing for bone mineral density. Follow-up with Dr. Galdamez at the office 2 weeks from the surgery date for a post operative evaluation. Call the office at [phone] to schedule appointment. Referrals: NONE,PCP [Primary Care Provider] - Prescriptions: OXYCODONE Oral CONC [Oxycodone Oral Conc] 5 mg SL Q4HR PRN 2 Days #7 oral.syg PRN Reason: Pain (1) Intertrochanteric fracture of left hip Qualifiers: Encounter type: initial encounter Fracture type: closed Fracture alignment: displaced Qualified Code(s): S72.142A - Displaced intertrochanteric fracture of left femur, initial encounter for closed fracture (2) UTI (urinary tract infection) Qualifiers: Urinary tract infection type: site unspecified Hematuria presence: with hematuria Qualified Code(s): N39.0 - Urinary tract infection, site not specified; R31.9 - Hematuria, unspecified (4) Xgxbe-il-laaycrb kidney injury Qualifiers: Acute renal failure type: unspecified Chronic kidney disease stage: unspecified stage Qualified Code(s): N17.9 - Acute kidney failure, unspecified; N18.9 - Chronic kidney disease, unspecified (5) Anemia Qualifiers: Anemia type: unspecified type Qualified Code(s): D64.9 - Anemia, unspecified
--- NOTE | 2018-07-26 20:12 | Electrocardiograph Report ---
[address] [place] [address] Test Date: 2018-07-23 Pat Name: Brigida Corrales Department: 114 Room: [facility] Gender: F Guard Driver: : [id number] Requested By: Sanam Bauman Order Number: [id number] Reading MD: Tamera Gustafson Measurements Intervals [place] Rate: 55 P: 87 VT: 224 QRS: 15 QRSD: 94 T: 28 QT: 415 QTc: 405 Interpretive Statements SINUS BRADYCARDIA WITH MARKED SINUS ARRHYTHMIA WITH FIRST DEGREE AV BLOCK SEPTAL MYOCARDIAL INFARCTION, PROBABLY OLD Electronically Signed On 07-26-2018 20:10:57 EST by Tamera Gustafson
[2018-07-26] MEDS: Aspirin 325 MG TABLET PO SCH (22:47)
[2018-07-27] MEDS: hydrALAZINE 10 MG TABLET PO SCH ×3 (06:16→18:23)
--- NOTE | 2018-07-27 08:32 | Internal Med Progress Note ---
<Rosina Reese Rosina - Last Filed: 07/27/18 15:45> Hospitalist Progress Note - Encounter Date of Encounter: 07/27/18 Time of Encounter: 08:40 - Subjective Interval History: Patient seen and examined at 840. No acute events overnight. Patient is much more interactive this morning. She is eating breakfast in the chair and watchin g television. She denies any complaints. She is talkative. Plan for today is that the patient will be discharged to the senior living facility, [facility]. Around 1530, discussed with patient's RN. I was notified that patient was initially authorized and the plan was to go to [facility] this morning. However insurance was placed on hold we are patient again. Once it is authorized, the patient will be transferred to SNF. Patient is also upset about this and refused her medications except hydralazine this morning. - Exam Vitals: Temp Pulse Resp BP Pulse Ox 98.1 F 61 16 136/56 96 07/27/18 06:56 07/27/18 06:56 07/27/18 06:56 07/27/18 06:56 07/27/18 06:56 Exam: Gen Alert, no acute distress, sitting in chair Head: normocephalic, atraumatic Eyes: EOMI intact, normal conjunctiva ENT: oral mucosa moist Cardiac: RRR, no murmur Respiratory: CTA bilaterally, no wheezing or rhonchi Abdomen: soft, nontender, nondistended Extremities: normal capillary refill, no pedal edema, no calf tenderness, left hip surgical site covered with dry dressing, no purulent drainage Neuro: alert and oriented to person, place, and time. Psych: normal mood and affect Skin: warm and dry - Assessment and Plan (1) Intertrochanteric fracture of left hip Current Visit: Yes Status: Inactive Assessment and Plan: S/P reduction and fixation. POD#[address] Galdamez, orthopedic surgery. Continue post op management and daily dressing changes/wound care Patient accepted to [facility] however now pending insurance authorization Continue post op recommendations per Orthopedic surgery Aspirin 325mg PO BID for 28 days for DVT ppx. (2) UTI (urinary tract infection) Current Visit: Yes Status: Resolved Assessment and Plan: S/p 5 days IV Rocephin Culture negative for growth. (3) Acute delirium Current Visit: Yes Status: Resolved Assessment and Plan: Resolved. Neurology evaluated patient. CT head with no acute intracranial abnormality. Folate, ammonia level, TSH, lactate normal. B12 elevated secondary to s upplementation. AST elevated likely secondary to Rocephin. Nonfocal neurologic examination. Likely multifactorial due to recent UTI, anesthesia, acute on chronic renal disease and possible underlying dementia. No further testing or imaging recommended. (4) Zygiw-wc-qgllnqd kidney injury Current Visit: Yes Status: Acute Assessment and Plan: IMproving. Likely secondary to 2 units pRBCs and prerenal Avoid nephrotoxins and continue hydration. (5) Anemia Current Visit: Yes Status: Chronic Assessment and Plan: Acute blood loss due to surgery. Stable. Likely due to intraoperative losses. Received 2 units pRBCs transfusion (6) Chronic diastolic (congestive) heart failure Current Visit: Yes Status: Chronic Assessment and Plan: Echo demonstrated maintained LVEF 60% Continue with aspirin, statin, imdur, ranexa . (7) First degree AV block Current Visit: Yes Status: Acute Assessment and Plan: During admission, patient had heart rate in the 40s. Improved. EKG with first degree AV block. Continue propranolol 40mg qd. HR improved DVT Prophylaxis: ASA 325mg BID - Time Spent with Patient Total time spent is greater than 50% in coordination of care (as documented) at patient's floor/unit and/or counseling patient: Plan of Care Discussed with: nurse Internal Medicine: Result - Labs CBC & Chem 7: 07/26/18 05:41 07/26/18 05:41 - ABG Interpretation ABG results: PT/INR, D-dimer PT 12.7 Seconds (9.4-12.1) H 07/20/18 04:25 - Impressions Impressions Hip X-Ray 07/26/18 14:48 IMPRESSION: Anatomic alignment status post ORIF of the left femoral neck D/ / Paul Silva MD / Paul Silva MD Interpreting Provider: Paul Silva MD Consult Discharge Plan - Plan Instructions: Fall Prevention (DC) Additional Instructions: GROUP HOME DISCHARGE INSTRUCTIONS Dr. Galdamez PROCEDURE PERFORMED Reduction and fixation of left hip. Incision care -Daily dressing changes to the left hip with dry gauze and either paper tape or medipore tape. -Avoid soaking wound in water (no hot tubs, bathtubs, swimming pools). -May shower after 2 weeks from surgery date. Carefully wash incision with soap and water. Gently pat it dry. Don't rub the incision, or apply creams or lotions. Sit on a shower stool when showering to keep from falling. Weight bearing status -Weightbearing as tolerated to the bilateral lower extremities. Medications -Pain medication per the discharging medical doctor -Enteric coated aspirin 325 mg by mouth twice per day for 28 days from the date of the surgery. Other -Knee high ACE hose 23 hours per day -Consult physical and occupational therapy for mobilization. -Up to chair with assistance at least twice per day. -Follow up with your primary care physician to discuss testing for bone mineral density. Follow-up with Dr. Galdamez at the office 2 weeks from the surgery date for a post operative evaluation. Call the office at [phone] to schedule appointment. Referrals: NONE,PCP [Primary Care Provider] - <Alverto Galeano - Last Filed: 07/27/18 18:54> Hospitalist Progress Note - Encounter Date of Encounter: 07/27/18 - Exam Vitals: Temp Pulse Resp BP Pulse Ox 97.6 F 57 16 144/53 94 07/27/18 16:33 07/27/18 16:33 07/27/18 16:33 07/27/18 16:33 07/27/18 16:33 - Assessment and Plan (1) Intertrochanteric fracture of left hip Current Visit: Yes Status: Inactive (2) DVT prophylaxis Current Visit: Yes Status: Acute (3) Anemia Current Visit: Yes Status: Chronic (4) Acute delirium Current Visit: Yes Status: Resolved (5) UTI (urinary tract infection) Current Visit: Yes Status: Resolved (6) Chronic diastolic (congestive) heart failure Current Visit: Yes Status: Chronic (7) Qwfui-xv-txxtvbz kidney injury Current Visit: Yes Status: Acute - Time Spent with Patient Total time spent is greater than 50% in coordination of care (as documented) at patient's floor/unit and/or counseling patient: Internal Medicine: Result - Labs CBC & Chem 7: 07/26/18 05:41 07/26/18 05:41 - ABG Interpretation ABG results: PT/INR, D-dimer PT 12.7 Seconds (9.4-12.1) H 07/20/18 04:25 - Attending Attestation I examined this patient and my medical decision-making was reviewed with the Resident Physician. I agree with the documented findings, disposition and dawson tment plan as described except to the extent set forth below. <Rosina Reese - Last Filed: 07/27/18 15:45> (1) Intertrochanteric fracture of left hip Qualifiers: Encounter type: initial encounter Fracture type: closed Fracture alignment: displaced Qualified Code(s): S72.142A - Displaced intertrochanteric fracture of left femur, initial encounter for closed fracture (2) UTI (urinary tract infection) Qualifiers: Urinary tract infection type: site unspecified Hematuria presence: with hematuria Qualified Code(s): N39.0 - Urinary tract infection, site not s pecified; R31.9 - Hematuria, unspecified (4) Jgpxz-yw-ldtwmpi kidney injury Qualifiers: Acute renal failure type: unspecified Chronic kidney disease stage: unspecified stage Qualified Code(s): N17.9 - Acute kidney failure, unspecified; N18.9 - Chronic kidney disease, unspecified (5) Anemia Qualifiers: Anemia type: unspecified type Qualified Code(s): D64.9 - Anemia, unspecified <Alverto Galeano - Last Filed: 07/27/18 18:54> (1) Intertrochanteric fracture of left hip Qualifiers: Encounter type: initial encounter Fracture type: closed Fracture alignment: displaced Qualified Code(s): S72.142A - Displaced intertrochanteric fracture of left femur, initial encounter for closed fracture (3) Anemia Qualifiers: Anemia type: unspecified type Qualified Code(s): D64.9 - Anemia, unspecified (5) UTI (urinary tract infection) Qualifiers: Urinary tract infection type: site unspecified Hematuria presence: with hematuria Qualified Code(s): N39.0 - Urinary tract infection, site not specified; R31.9 - Hematuria, unspecified (7) Wavnz-jm-cwrnzee kidney injury Qualifiers: Acute renal failure type: unspecified Chronic kidney disease stage: uns pecified stage Qualified Code(s): N17.9 - Acute kidney failure, unspecified; N18.9 - Chronic kidney disease, unspecified
[2018-07-27] MEDS: Aspirin 325 MG TABLET PO SCH ×3 (10:06→21:01)
[2018-07-27] MEDS: Ranolazine 500 MG TAB.ER.12H PO SCH ×3 (10:06→21:01)
[2018-07-27] MEDS: Isosorbide MONOnitrate (24 HR) 60 MG TAB.ER.24H PO SCH ×2 (10:06→12:24)
[2018-07-27] MEDS: Cyanocobalamin (B-12) 1,000 MCG TABLET PO SCH ×2 (10:07→12:25)
[2018-07-27] MEDS: OXYCODONE Oral CONC 10 MG/0.5 ML ORAL.SYG SL PRN (18:23)
[2018-07-28] MEDS: OXYCODONE Oral CONC 10 MG/0.5 ML ORAL.SYG SL PRN (01:01)
[2018-07-28] MEDS: hydrALAZINE 10 MG TABLET PO SCH ×3 (01:02→12:12)
--- NOTE | 2018-07-28 08:28 | Internal Med Progress Note ---
Addendum entered and electronically signed by Rosina Reese 07/28/18 13:16: Addendum to disposition: Patient has been accepted and will be transferred to [facility] today. Original Note: <Rosina Reese - Last Filed: 07/28/18 11:08> Hospitalist Progress Note - Encounter Date of Encounter: 07/28/18 Time of Encounter: 08:40 - Subjective Interval History: Patient seen and examined at bedside. She is sitting up in chair. No acute complaints. No changes overnight and remains interactive and talkative this morning. Noted that left hip surgical site dressings with serosanguinous drainage. No grossly bloody. Surgical site has no purulent drainage and appears well with no surrounding erythema or swelling. There is ecchymosis. Patient is urinating and moving her bowels. Eating at bedside. Disposition to [facility] is still pending insurance authorization. Vitals stable. - Exam Vitals: Temp Pulse Resp BP Pulse Ox 97.4 F L 69 16 126/60 98 07/28/18 08:05 07/28/18 08:05 07/28/18 08:05 07/28/18 08:05 07/28/18 08:05 Exam: Gen Alert, no acute distress, sitting in chair eating breakfast Head: normocephalic, atraumatic Eyes: EOMI intact, normal conjunctiva ENT: oral mucosa moist Cardiac: RRR, no murmur, normal S1, S2 Respiratory: CTA bilaterally, no wheezing Abdomen: soft, nontender, nondistended Extremities: normal capillary refill, no pedal edema, no calf tenderness, left hip surgical site with serafin without surrounding erythema or edema. Ecchymosis of skin. Serosanguineous drainage. No gross bloody or purulent discharge. Neuro: alert and oriented to person, place Psych: normal mood and affect, no agitation Skin: warm, no pallor or cyanosis - Assessment and Plan (1) Intertrochanteric fracture of left hip Status: Inactive Assessment and Plan: S/P reduction and fixation. POD#[address] Galdamez, Orthopedic Surgery. Continue post op management and daily dressing changes and wound care. Continue PT/OT. Patient accepted to [facility]. Awaitinginsurance authorization. Continue post op recommendations per Orthopedic surgery Continue with Aspirin 325mg PO BID for 28 days for DVT ppx. (2) UTI (urinary tract infection) Status: Resolved Assessment and Plan: S/p 5 days IV Rocephin. Pt urinating without difficulty Culture negative for growth. (3) Acute delirium Status: Resolved Assessment and Plan: Resolved. No acute changes overnight Likely multifactorial due to recent UTI, anesthesia, acute on chronic renal disease and possible underlying dementia. CT head with no acute intracranial abnormality. Folate, ammonia level, TSH, lactate normal. B12 elevated secondary to supplementation. Neurology evaluated patient. No further testing or imaging recommended. (4) Obivk-eg-eyukndd kidney injury Status: Acute Assessment and Plan: Improving. Patient eating and drinking, urinating. Have not repeated BMP as patient is to be transfered to SNF. Likely secondary to 2 units pRBCs and prerenal disease. Continue to avoid nephrotoxins and continue hydration. (5) Anemia Status: Chronic Assessment and Plan: Likely due to intraoperative losses. Stable after receiving 2 units pRBCs. (6) Chronic diastolic (congestive) heart failure Status: Chronic Assessment and Plan: Echo demonstrated maintained LVEF 60% Continue with Statin, Imdur, Ranexa. (7) First degree AV block Status: Acute Assessment and Plan: During admission, patient had heart rate in the 40s. Improved. EKG with first degree AV block. Continue propranolol 40mg qd. HR now 60-70s. DVT Prophylaxis: ASA 325mg BID - Time Spent with Patient Total time spent is greater than 50% in coordination of care (as documented) at patient's floor/unit and/or counseling patient: Internal Medicine: Result - Labs CBC & Chem 7: 07/26/18 05:41 07/26/18 05:41 - ABG Interpretation ABG results: PT/INR, D-dimer PT 12.7 Seconds (9.4-12.1) H 07/20/18 04:25 Consult Discharge Plan - Plan Instructions: Fall Prevention (DC) Additional Instructions: CORRECTION DISCHARGE INSTRUCTIONS Dr. Galdamez PROCEDURE PERFORMED Reduction and fixation of left hip. Incision care -Daily dressing changes to the left hip with dry gauze and either paper tape or medipore tape. -Avoid soaking wound in water (no hot tubs, bathtubs, swimming pools). -May shower after 2 weeks from surgery date. Carefully wash incision with soap and water. Gently pat it dry. Don't rub the incision, or apply creams or lotions. Sit on a shower stool when showering to keep from falling. Weight bearing status -Weightbearing as tolerated to the bilateral lower extremities. Medications -Pain medication per the discharging medical doctor -Enteric coated aspirin 325 mg by mouth twice per day for 28 days from the date of the surgery. Other -Knee high ACE hose 23 hours per day -Consult physical and occupational therapy for mobilization. -Up to chair with assistance at least twice per day. -Follow up with your primary care physician to discuss testing for bone mineral density. Follow-up with Dr. Galdamez at the office 2 weeks from the surgery date for a post operative evaluation. Call the office at [phone] to schedule appointment. Referrals: NONE,PCP [Primary Care Provider] - Isael Galdamez MD [Partnered Physician] - 08/11/18 2:50 pm <Alverto Galeano - Last Filed: 07/28/18 19:01> Hospitalist Progress Note - Encounter Date of Encounter: 07/28/18 - Exam Vitals: Temp Pulse Resp BP Pulse Ox 97.7 F 69 20 138/56 99 07/28/18 12:10 07/28/18 12:10 07/28/18 12:10 07/28/18 12:10 07/28/18 12:10 - Assessment and Plan (1) Intertrochanteric fracture of left hip Status: Inactive (2) DVT prophylaxis Status: Acute (3) Anemia Status: Chronic (4) Acute delirium Status: Resolved (5) UTI (urinary tract infection) Status: Resolved (6) Chronic diastolic (congestive) heart failure Status: Chronic (7) Gsnze-vn-wkvnoxz kidney injury Status: Acute - Time Spent with Patient Total time spent is greater than 50% in coordination of care (as documented) at patient's floor/unit and/or counseling patient: Internal Medicine: Result - Labs CBC & Chem 7: 07/26/18 05:41 07/26/18 05:41 - ABG Interpretation ABG results: PT/INR, D-dimer PT 12.7 Seconds (9.4-12.1) H 07/20/18 04:25 - Attending Attestation I examined this patient and my medical decision-making was reviewed with the Resident Physician. I agree with the documented findings, disposition and treatment plan as described except to the extent set forth below. <Justo Reesefredy Almaguer - Last Filed: 07/28/18 11:08> (1) Intertrochanteric fracture of left hip Qualifiers: Encounter type: initial encounter Fracture type: closed Fracture alignment: displaced Qualified Code(s): S72.142A - Displaced intertrochanteric fracture of left femur, initial encounter for closed fracture (2) UTI (urinary tract infection) Qualifiers: Urinary tract infection type: site unspecified Hematuria presence: with hematuria Qualified Code(s): N39.0 - Urinary tract infection, site not specified; R31.9 - Hematuria, unspecified (4) Ssewu-hq-lkwxuwt kidney injury Qualifiers: Acute renal failure type: unspecified Chronic kidney disease stage: uns pecified stage Qualified Code(s): N17.9 - Acute kidney failure, unspecified; N18.9 - Chronic kidney disease, unspecified (5) Anemia Qualifiers: Anemia type: unspecified type Qualified Code(s): D64.9 - Anemia, unspecified <Alverto Galeano - Last Filed: 07/28/18 19:01> (1) Intertrochanteric fracture of left hip Qualifiers: Encounter type: initial encounter Fracture type: closed Fracture alignment: displaced Qualified Code(s): S72.142A - Displaced intertrochanteric fracture of left femur, initial encounter for closed fracture (3) Anemia Qualifiers: Anemia type: unspecified type Qualified Code(s): D64.9 - Anemia, unspecified (5) UTI (urinary tract infection) Qualifiers: Urinary tract infection type: site unspecified Hematuria presence: with hematuria Qualified Code(s): N39.0 - Urinary tract infection, site not specified; R31.9 - Hematuria, unspecified (7) Gbbwl-et-klzcoda kidney injury Qualifiers: Acute renal failure type: unspecified Chronic kidney disease stage: unspecified stage Qualified Code(s): N17.9 - Acute kidney failure, unspecified; N18.9 - Chronic kidney disease, unspecified
[2018-07-28] MEDS: Aspirin 325 MG TABLET PO SCH (09:46)
[2018-07-28] MEDS: Isosorbide MONOnitrate (24 HR) 60 MG TAB.ER.24H PO SCH (09:55)
[2018-07-28] MEDS: Ranolazine 500 MG TAB.ER.12H PO SCH (09:55)
[2018-07-28] MEDS: Cyanocobalamin (B-12) 1,000 MCG TABLET PO SCH (09:56)
[2018-07-28 12:12] VITALS: BP 138/56
== END 2018-07-28 14:08 | DRG 480 ==
LOC: 3NENU → SUATTDRO 16:49 → 3NENU 07-23 21:10
PROVIDERS: ADMIT Student in an Organized Health Care Education/Training Program; ATTEND Student in an Organized Health Care Education/Training Program